=== PATIENT | male | born 1980 | race Caucasian/White ===

== ENCOUNTER 2020-05-14 18:05 | Emergency (ER) | payer MEDICAID, SELFPAY ==
--- NOTE | ~2020-05-14 | CT_ITS ---
EXAMINATION: CT ABDOMEN AND PELVIS WITHOUT CONTRAST CLINICAL INFORMATION: Left flank pain. COMPARISON: 12/10/2010 TECHNIQUE: Multidetector volumetric imaging was performed from the superior aspect of the liver through the pubic symphysis. Sagittal and coronal reformatted images were obtained on the technologist's workstation. This CT examination was performed using dose optimization techniques as appropriate, variously including the following: *Automated exposure control *Adjustment of mA and/or kV according to patient size (this includes techniques or standardized protocols for targeted exams where dose is matched to indication/reason for exam; i.e. extremities or head) *Use of iterative reconstruction technique DLP: 792 mGy-cm FINDINGS: LUNG BASES: The visualized lung bases are unremarkable. LIVER, GALLBLADDER, AND BILIARY TREE: The liver is normal in size, shape, and attenuation. No focal hepatic lesion or biliary ductal dilatation is present. The gallbladder is unremarkable with no evidence of radiopaque gallstones, gallbladder wall thickening, or obvious pericholecystic inflammatory changes. PANCREAS: Unremarkable. SPLEEN: Unremarkable. ADRENAL GLANDS: Unremarkable. KIDNEYS AND URETERS: The kidneys are normal in size, shape, and attenuation. No hydronephrosis, hydroureter, or calculi seen. No perinephric stranding. BLADDER: Unremarkable. GASTROINTESTINAL TRACT: The stomach is unremarkable. Normal caliber small bowel. There is no obstruction. No colonic wall thickening or inflammatory change. No free air or free fluid. Normal appendix. ABDOMINAL WALL: No significant hernia is appreciated. LYMPH NODES: Normal. VASCULAR: Unremarkable. PELVIC VISCERA: The prostate and seminal vesicles are unremarkable. OSSEOUS STRUCTURES: No acute or suspicious osseous abnormality. CT/CT abdomen pelvis wo con IMPRESSION: No acute findings in the abdomen or pelvis. No hydronephrosis or nephrolithiasis. No inflammatory changes.
[2020-05-14 20:00] VITALS: BP 138/82; PULSE 82; RESP 16; TEMP 37.1; O2SAT 98; BMI 31.4
[2020-05-14 22:38] LABS: Glucose Urine UA NEG (NEG); Leukocyte Esterase Urine NEG (NEG); Nitrite Urine NEG (NEG); Specific Gravity - Urine 1.025 (1.005-1.025); Urine Blood 1+ (NEG); Urine Ketones NEG (NEG); Urine Protein NEG (NEG-TRACE)
[2020-05-14 22:39] LABS: Appearance Urine CLEAR; Color Urine YELLOW
[2020-05-14 22:44] LABS: Bacteria Urine 1+ /LPF; Mucus Urine 2+ /LPF; Squamous Epithelial Cell Urine 1+ /LPF
[2020-05-14] MEDS: Acetaminophen 325 MG TABLET 975 MG PO (22:44)
[2020-05-14] MEDS: Ketorolac Tromethamine 15 MG/ML VIAL IM (22:44)
[2020-05-14] MEDS: Lidocaine 4 % Patch ADH..PATCH 1 PATCH TRANSDERMA (22:45)
--- NOTE | 2020-05-15 00:34 | ED_ITS ---
HPI - Back Pain/Injury General Chief Complaint: Back Pain/Injury Stated Complaint: Flank Pain Time Seen by Provider: 05/14/20 22:12 Source: patient Mode of arrival: ambulatory History of Present Illness HPI Narrative: This is a 39-year-old male without significant past medical history of presents with 5 days of bilateral lower back pain without associated fevers, chills, nausea, vomiting, urinary pain/burning/frequency, or reported trauma to the back. He states that the pain remains localized left greater than right without radiation into either lower extremity. In addition, he denies any associated fecal or urinary problems. Related Data Allergies Allergy/AdvReac Type Severity Reaction Status Date / Time No Known Allergies Allergy Unverified 12/06/19 18:10 Review of Systems Review of Systems: Pertinent positives and negatives as stated in the HPI and 10 point review systems is otherwise negative. [facility] Past Medical History Source: nursing notes reviewed Social History Social History Advance Directives: No Advance Directives Information Provided: Yes Physical Exam Vital Signs: Vital Signs: Last Vital Signs Temp 98.7 F 05/14/20 20:00 Pulse 82 05/14/20 20:00 Resp 16 05/14/20 20:00 BP 138/82 05/14/20 20:00 Pulse Ox 98 05/14/20 20:00 Body Mass Index 31.4 VITAL SIGNS: Reviewed. GENERAL: Well developed, well nourished, in no acute distress. LUNGS: Normal breath sounds. No adventitious sounds or accessory muscle use. SpO2<98> CARDIOVASCULAR: Regular rate and rhythm without noted murmurs, no JVD or lower extremity edema. ABDOMEN: Soft, non-tender, non-distended with bowel sounds. BACK: No CVA tenderness, no midline vertebral tenderness, neurovascularly intact distal in bilateral lower extremities, straight leg test is negative, and no paraspinal tenderness noted on palpation. SKIN: Inspection of the skin reveals no rashes NEUROLOGIC: Alert and oriented x 4. Course Course Course Narrative: This is a 39-year-old male with history and clinical presentation consistent with atraumatic, chronic back pain without concerning neurologic symptoms and doubt pyelonephritis or kidney stones given history and physical findings. Review of all investigations is negative for any acute findings to suggest UTI, pyelonephritis, ureterolithiasis, and on re-evaluation after patient received combination analgesics he reports some mild improvement of his pain symptoms. He was instructed to follow up with his primary care provider for further outpatient workup and management for his atraumatic back pain. MDM - Back Pain/Injury Lab Data Labs: Lab Results 05/14/20 Range/Units 22:32 Urine Color YELLOW Urine Appearance CLEAR Urine pH 7.0 (5.0-8.0) Ur Specific [place] 1.025 (1.005-1.025) Urine Protein NEG (NEG-TRACE) MG/DL Urine Glucose (UA) NEG (NEG) MG/DL Urine Ketones NEG (NEG) MG/DL Urine Blood 1+ H (NEG) Urine Nitrite NEG (NEG) Ur Leukocyte Esterase NEG (NEG) Urine RBC 5-9 H (0) /HPF Urine WBC 1-4 (0-4) /HPF Ur Squamous Epith Cells 1+ /LPF Urine Bacteria 1+ /LPF Urine Mucus 2+ /LPF Discharge Plan Discharge Clinical Impression: Back pain Qualifiers: Back pain location: low back pain Chronicity: chronic Back pain laterality: bilateral Sciatica presence: without sciatica Qualified Code(s): M54.5 - Low back pain Patient Disposition: Home, Self-Care Instructions: Back Pain (ED), Lower Back Exercises (ED) Additional Instructions: 1. Tylenol 1000 mg, por v?a oral, cada 6 horas seg?n sea necesario para controlar el dolor. No exceda los 4000 mg en 24 horas. 2. Ibuprofeno 400 mg, por v?a oral con leche o alimentos, cada 6 horas seg?n sea necesario para controlar el dolor. 3. Recomiende el uso de parches de lidoca?na, estos est?n disponibles en todos los [facility], apl?quelos en el ?antonia de m?xima sensibilidad collin se indica en el empaque exterior. 4. Jhon un seguimiento con ring proveedor de atenci?n primaria en los pr?ximos 2-3 d?as. No dude en volver al servicio de urgencias si experimenta un empeoramiento timothy de yuliya s?ntomas. Referrals: Juana,Sarah, MD [Primary Care Provider] - 2 days (Re-evaluation for lower back pain, CT scan negative for evidence kidney stones.) Print Language: Belarusian
== END 2020-05-15 00:41 | disposition home or self-care (01) ==
PROVIDERS: Emergency Provider Student in an Organized Health Care Education/Training Program; PCP Internal Medicine
DX: M54.5 Low back pain (principal)
CPT/HCPCS: 74176; 81001; 96372; 99282; 99283; 99284; J1885

== ENCOUNTER 2020-07-17 18:24 | Emergency (ER) | payer MEDICAID, SELFPAY ==
[2020-07-17 19:15] VITALS: BP 118/83; PULSE 77; RESP 18; TEMP 36.2; O2SAT 98; BMI 31.6
[2020-07-17 19:37] LABS: MANUAL DIFF FLAG NO
[2020-07-17 19:38] LABS: Basophils Percent Auto 0.5 % (0-2); Eosinophils Absolute Auto 0.1 X10*3/uL (0.0-0.4); Eosinophils Percent Auto 1.5 % (0-4); Hematocrit 45.1 % (42-52); Hemoglobin 14.6 g/dl (14.0-18.0); Imm Gran Abs Auto 0.01 X10*3/uL (0.00-0.03); Imm Gran Pct Auto 0.1 % (0.0-0.4); Lymphocytes Absolute Auto 2.5 X10*3/uL (1.2-4.9); Lymphocytes Percent Auto 32.6 % (20-40); Mean Corpuscular HGB Conc 32.4 g/dl (31.0-36.0); Mean Corpuscular Hemoglobin 27.1 pg (27.0-33.0); Mean Corpuscular Volume 83.8 fL (80-98); Mean Platelet Volume 9.2 fL (9.4-12.4); Monocytes Absolute Auto 0.7 X10*3/uL (0.1-1.2); Monocytes Percent Auto 8.5 % (2-11); Neutrophils Absolute Auto 4.4 X10*3/uL (2.0-8.3); Neutrophils Percent Auto 56.8 % (45-73); Platelet Count 240 X10*3/uL (160-400); Red Blood Count 5.38 X10*6/uL (4.60-5.80); Red Cell Distribution Width 13.5 % (11.0-16.0); White Blood Count 7.8 X10*3/uL (4.8-10.8)
[2020-07-17 19:55] LABS: Lipase 30 U/L (8-78)
[2020-07-17 19:56] LABS: Alanine Aminotransferase 15 U/L (0-40); Albumin Level 4.6 g/dL (3.5-5.0); Alkaline Phosphatase 51 U/L (39-117); Anion Gap 14 (12-20); Aspartate Amino Transferase 15 U/L (5-37); Blood Urea Nitrogen 24 mg/dL (9-16); Calcium 9.3 mg/dL (8.4-10.2); Carbon Dioxide 26 mmol/L (22-29); Chloride 101 mmol/L (96-108); Creatinine Clr Calc Pharmacy 134.4; Estimated Glomerular Filt Rate > 60; Glucose Random 102 mg/dL (60-115); Potassium 3.9 mmol/L (3.3-5.1); Sodium 137 mmol/L (135-145); Total Protein 7.5 g/dL (6.5-8.0)
--- NOTE | 2020-07-17 20:46 | ED.ABDPAIN ---
HPI - Abdominal Pain General Chief Complaint: Abdominal Pain Stated Complaint: upper abd pain Time Seen by Provider: 07/17/20 20:45 Source: patient Mode of arrival: ambulatory Limitations: no limitations History of Present Illness HPI narrative: Patient with significant past medical history complaining of pain in epigastric area for last 3 days no nausea no vomiting no diarrhea normal bowel movements pain gets worse after eating food no blood in stool no history of similar pain in the past no alcohol use no history of pancreatitis Related Data Previous Rx's Medication Instructions Recorded omeprazole 40 mg PO DAILY #30 cap 07/17/20 sucralfate 1 g PO TID #90 tab 07/17/20 Allergies Allergy/AdvReac Type Severity Reaction Status Date / Time No Known Allergies Allergy Verified 07/17/20 19:19 Review of Systems Review of Systems Yes all other systems are reviewed and are negative Physical Exam Vital Signs: Vital Signs: Last Vital Signs Temp 97.1 F 07/17/20 19:15 Pulse 77 07/17/20 19:15 Resp 18 07/17/20 19:15 BP 118/83 07/17/20 19:15 Pulse Ox 98 07/17/20 19:15 Body Mass Index 31.6 Appearance: Alert. Oriented X3. No acute distress. Eyes: PERRLA, No Nystagmus ENT: Pharynx normal. Oral Mucosa moist Neck: Normal inspection. Neck supple. CVS: Normal heart rate and rhythm. Pulses normal. Respiratory: No respiratory distress. Equal air entry bilateral, no wheezing/rales/rhonchi Abdomen: Soft , tenderness in epigastric area no rebound tenderness or guarding Bowel sounds are present, no mass palpable, no CVA tenderness Skin: Skin warm and dry. Normal skin color. Normal skin turgor. Extremities: No lower extremity edema. No calf tenderness Neuro: Oriented X 3. No motor deficit. No sensory deficit. MDM - Abdominal Pain MDM Narrative Medical decision making narrative: Patient has epigastric pain with normal labs clinically has gastritis discharge patient home on Prilosec and sucralfate Lab Data Attestation: I reviewed the patient's lab results. Result diagrams: 07/17/20 19:30 07/17/20 19:30 Labs: Lab Results 07/17/20 07/17/20 07/17/20 Range/Units 19:30 19:30 19:30 WBC 7.8 (4.8-10.8) X10*3/uL RBC 5.38 (4.60-5.80) X10*6/uL Hgb 14.6 (14.0-18.0) g/dl Hct 45.1 (42-52) % MCV 83.8 (80-98) fL MCH 27.1 (27.0-33.0) pg MCHC 32.4 (31.0-36.0) g/dl RDW 13.5 (11.0-16.0) % Plt Count 240 (160-400) X10*3/uL MPV 9.2 L (9.4-12.4) fL Immature Gran % (Auto) 0.1 (0.0-0.4) % Neut % (Auto) 56.8 (45-73) % Lymph % (Auto) 32.6 (20-40) % Edwards % (Auto) 8.5 (2-11) % Eos % (Auto) 1.5 (0-4) % Baso % (Auto) 0.5 (0-2) % Lymph # (Auto) 2.5 (1.2-4.9) X10*3/uL Edwards # (Auto) 0.7 (0.1-1.2) X10*3/uL Eos # (Auto) 0.1 (0.0-0.4) X10*3/uL Baso # (Auto) 0.0 (0.0-0.2) X10*3/uL Abs Immat Gran (auto) 0.01 (0.00-0.03) X10*3/uL Absolute Neuts (auto) 4.4 (2.0-8.3) X10*3/uL Absolute Nucleated RBC 0.000 (0.0-0.012) X10*3/uL Nucleated RBC % (auto) 0.0 (0.0-0.2) /100WBC Hold Blue Top SEE NOTE Sodium (135-145) mmol/L Potassium (3.3-5.1) mmol/L Chloride (96-108) mmol/L Carbon Dioxide (22-29) mmol/L Anion Gap (12-20) BUN (9-16) mg/dL Creatinine (0.5-1.4) mg/dL Estim Creat Clear Calc Estimated GFR Random Glucose (60-115) mg/dL Calcium (8.4-10.2) mg/dL Total Bilirubin (0.0-1.0) mg/dL AST (5-37) U/L ALT (0-40) U/L Alkaline Phosphatase (39-117) U/L Total Protein (6.5-8.0) g/dL Albumin (3.5-5.0) g/dL Lipase 30 (8-78) U/L 07/17/20 Range/Units 19:30 WBC (4.8-10.8) X10*3/uL RBC (4.60-5.80) X10*6/uL Hgb (14.0-18.0) g/dl Hct (42-52) % MCV (80-98) fL MCH (27.0-33.0) pg MCHC (31.0-36.0) g/dl RDW (11.0-16.0) % Plt Count (160-400) X10*3/uL MPV (9.4-12.4) fL Immature Gran % (Auto) (0.0-0.4) % Neut % (Auto) (45-73) % Lymph % (Auto) (20-40) % Edwards % (Auto) (2-11) % Eos % (Auto) (0-4) % Baso % (Auto) (0-2) % Lymph # (Auto) (1.2-4.9) X10*3/uL Edwards # (Auto) (0.1-1.2) X10*3/uL Eos # (Auto) (0.0-0.4) X10*3/uL Baso # (Auto) (0.0-0.2) X10*3/uL Abs Immat Gran (auto) (0.00-0.03) X10*3/uL Absolute Neuts (auto) (2.0-8.3) X10*3/uL Absolute Nucleated RBC (0.0-0.012) X10*3/uL Nucleated RBC % (auto) (0.0-0.2) /100WBC Hold Blue Top Sodium 137 (135-145) mmol/L Potassium 3.9 (3.3-5.1) mmol/L Chloride 101 (96-108) mmol/L Carbon Dioxide 26 (22-29) mmol/L Anion Gap 14 (12-20) BUN 24 H (9-16) mg/dL Creatinine 1.00 (0.5-1.4) mg/dL Estim Creat Clear Calc 134.4 Estimated GFR > 60 Random Glucose 102 (60-115) mg/dL Calcium 9.3 (8.4-10.2) mg/dL Total Bilirubin 1.0 (0.0-1.0) mg/dL AST 15 (5-37) U/L ALT 15 (0-40) U/L Alkaline Phosphatase 51 (39-117) U/L Total Protein 7.5 (6.5-8.0) g/dL Albumin 4.6 (3.5-5.0) g/dL Lipase (8-78) U/L Discharge Plan Discharge Clinical Impression: Gastritis Patient Disposition: Home, Self-Care Instructions: Gastritis (ED) Additional Instructions: Avoid spicy/fried food Prescriptions: New omeprazole 40 mg capsule,delayed release(DR/EC) 40 mg PO DAILY Qty: 30 RF: 0 sucralfate 1 gram tablet 1 g PO TID Qty: 90 RF: 0 Interventions: ED Discharge Assessment Last Done: 07/17/20 22:25 Discharge Date/Time: 07/17/20 22:25 Print Language: [place] Citizen [facility] Social History Social History Advance Directives: No Advance Directives Information Provided: Yes
[2020-07-17] MEDS: Famotidine/PF 20 MG/2 ML VIAL IVPUSH (21:44)
[2020-07-17] MEDS: ondansetron HCL 4 MG/2 ML VIAL IVPUSH (21:44)
[2020-07-17] MEDS: 0.9 % Sodium Chloride 1,000 ML 999 ML IVCONT (21:44)
--- NOTE | 2020-07-17 21:45 | PC.NURSE ---
patient medicated per order
== END 2020-07-17 22:25 | disposition home or self-care (01) ==
PROVIDERS: Emergency Provider Internal Medicine; PCP Internal Medicine
DX: K29.70 Gastritis, unspecified, without bleeding (principal); R10.10 Upper abdominal pain, unspecified
CPT/HCPCS: 36415; 80053; 83690; 85025; 96361; 96374; 96375; 99284; J2405

== ENCOUNTER 2021-03-28 07:20 | Emergency (ER) | payer MEDICAID, SELFPAY ==
--- NOTE | ~2021-03-28 | XR_ITS ---
EXAMINATION: XR CHEST CLINICAL INFORMATION: Cough with chest pain. COMPARISON: Most recent chest radiograph dated 07/22/2018. TECHNIQUE: 2 views of the chest were obtained. FINDINGS: The lungs are clear. The cardiomediastinal silhouette is normal in size. There is no pleural effusion or pneumothorax. No acute osseous abnormality. XR/XR chest 2V IMPRESSION: No acute cardiopulmonary findings.
--- NOTE | ~2021-03-28 | XR_ITS ---
EXAMINATION: XR LUMBOSACRAL SPINE CLINICAL INFORMATION: Back pain for one month. COMPARISON: None TECHNIQUE: Three views of the lumbosacral spine. FINDINGS: The vertebral bodies and posterior elements are normal. The disc spaces are preserved and the vertebral alignment is normal. The paraspinal soft tissues are normal. XR/XR lumbar spine 2-3V IMPRESSION: Unremarkable examination.
[2021-03-28 07:50] VITALS: BP 118/71; PULSE 100; RESP 18; TEMP 36.4; O2SAT 96; BMI 32.1
[2021-03-28 11:17] LABS: COVID-19 Test Positive (Negative)
--- NOTE | 2021-03-28 11:47 | ED_ITS ---
HPI - URI/Sore Throat General Chief Complaint: General Medical Stated Complaint: Fever/chest pain Time Seen by Provider: 03/28/21 10:42 Source: patient Mode of arrival: ambulatory Limitations: language barrier (Chinese-speaking) History of Present Illness HPI Narrative: 40-year-old male who reports he is vaccinated to the COVID vaccine with 2 Moderna shots presenting to the ED with COVID like symptoms for the past 2 days worse today reports intermittent headaches, subjective fevers, sore throat, sweats, productive cough with thick yellow color sputum, chest tightness, lower back pain and body aches. Denies any other symptoms complaints or concerns at this time. MD elicited complaint: fever, cough, rhinorrhea and nasal congestion Onset (ago): day(s) (2) Consistency: constant and progressively worsening Severity: moderate Description of mucous: yellow Able to tolerate fluids by mouth: Yes Exacerbating factors: nothing Relieving factors: nothing Associated symptoms: fever, chills, myalgias, headache, rhinorrhea, nasal congestion, sore throat, cough (With chest tightness) and nausea Treatments prior to arrival: none Related Data Previous Rx's Medication Instructions Recorded omeprazole 40 mg capsule,delayed 40 mg PO DAILY #30 cap 07/17/20 release sucralfate 1 gram tablet 1 g PO TID #90 tab 07/17/20 albuterol sulfate 90 mcg/actuation 1 inh INHALATION QID PRN #8.5 g 03/28/21 aerosol inhaler azithromycin 250 mg tablet See Rx Instructions .ROUTE 03/28/21 .COMPLEX #6 tab codeine 10 mg-guaifenesin 100 mg/5 5 ml PO Q6H PRN #120 ml 03/28/21 mL oral liquid (Guaifenesin AC) cyclobenzaprine 10 mg tablet 10 mg PO Q8H PRN #14 tab 03/28/21 Allergies Allergy/AdvReac Type Severity Reaction Status Date / Time No Known Allergies Allergy Verified 07/17/20 19:19 Review of Systems Review of Systems: Constitutional : Positive for subjective fever/chills/fatigue/malaise, positive night sweats, No Weight loss ENT/Mouth : Positive sore throat/rhinorrhea/nasal congestion, No Hearing loss, No Ear Pain, No Sinus Pain, No Hoarseness, No Swallowing Difficulty Eyes: No Eye Pain, No Swelling, No Redness, No Foreign Body, No Discharge, No Vision Changes Cardiovascular : No Chest Pain, No SOB, No Dyspnea on Exertion, No Orthopnea, No Edema, No Palpitations Respiratory : Positive Cough, positive Sputum, No Wheezing, No Smoke Exposure, No Dyspnea Gastrointestinal : No Nausea, No Vomiting, No Diarrhea, No Constipation, No abdominal Pain, No Hematochezia, No Melena Genitourinary : no irregular bleeding, No Dysuria, No Urinary Frequency, No Hematuria, No Urinary Incontinence, No Urgency, No Flank Pain, No Urinary Flow Changes, No Hesitancy Musculoskeletal : No joint pain, positive Myalgias, No Joint Swelling Skin : No Skin Lesions, No rash Neuro : No Weakness, No Numbness, No Paresthesias, No Loss of Consciousness, No Dizziness, No Headache Psych : No Anxiety/Panic, No Depression, No SI/HI/AH/VH, No Social Issues, Heme/Lymph: No Bruising, No Bleeding,No Lymphadenopathy Endocrine : No Polyuria, No Polydipsia, No Temperature Intolerance Yes all other systems are reviewed and are negative [facility] Past Medical History Attestation statement: The following information was validated with the patient. Social History Social History Advance Directives: No Advance Directives Information Provided: No Physical Exam Vital Signs: Vital Signs: Last Vital Signs Temp 97.6 F 03/28/21 07:50 Pulse 100 03/28/21 07:50 Resp 18 03/28/21 07:50 BP 118/71 03/28/21 07:50 Pulse Ox 96 03/28/21 07:50 BMI result Body Mass Index 32.1 vital signs have been reviewed as normal and appeared to be correct. Blood pressure normal. Heart rate normal. Respiration rate normal. Temperature normal. Oxygen saturation normal. Appearance: Alert. Oriented X3. No acute distress. Head: Normal external exam. Normocephalic. Atraumatic. Eyes: PERRLA. EOMI. Conjunctiva and sclera normal. Eyelids normal. ENT: EAC normal. TM's Normal. Pharynx normal. Uvula midline. Moist mucous membranes. No trismus noted. No drooling noted. No muffled voice noted. Neck: Normal inspection. Neck supple. FROM. No adenopathy. Thyroid Normal. No meningeal signs. No neck mass noted. CVS: Normal heart rate and rhythm. Heart sound normal. Pulses normal throughout. No murmurs/rales/gallops. Respiratory: No respiratory distress. Painless inspiration. Breath sounds normal. No wheezes/rales/rhonchi noted. Chest nontender. No accessory muscle usage noted or decreased air movement noted. Abdomen: Soft and nontender. Bowel sounds normal in all 4 quadrants. No distention noted. No organomegaly noted. No visible injury noted. Back: No CVA tenderness. Full range of motion noted. No rashes/lesion/induration/fluctuance or signs of infection noted. Neuro intact bilaterally and distally on all 4 extremities. Reflexes intact bilateral and DISI on all 4 extremities. Skin: Skin warm and dry. Normal skin color. Normal skin turgor. No rashes/lesions/lacerations noted. Extremities: No lower extremity edema. Extremities exhibit normal range of motion. Extremities nontender. Neuro: Oriented X 3. No motor deficit. No sensory deficit. Reflexes normal. Normal steady gait. No focal neuro deficits noted. Vascular: + radial pulses/+ 2 distal pedal pulses/+2 dorsalis pedis b/l. Normal cap refill. No cyanosis noted to upper extremity nails and lower extremity toes nails. Course Course Course Narrative: Pt c likely muscular pain, but could be herniated disc. Neuro exam shows no deficits. Not c/w AAA/epidural abscess/dissection.No high risk Hx (Incont, fever, immunosupp, recent surgery/LP, coag, signif trauma, wt loss, puls mass, hx/o Ca, TB, or IVDU) to warrant MRI/CT today. Not c/w Pyelo/UTI/kidney stone/spinal fx. Not cauda equina syndrome. X-ray imaging negative. Patient most likely just is COVID body aches. I explained him that he is positive for COVID and that he needs to follow up with the CDC guidelines for isolation/quarantine guidelines and to return if any new or worsening symptoms will DC home with symptomatic treatment to follow-up with primary care provider. Patient understands agrees with this plan. MDM - URI/Sore Throat Medical Records Attestation: I reviewed the patient's medical records. Lab Data Attestation: I reviewed the patient's lab results. Labs: Lab Results 03/28/21 Range/Units 10:52 COVID-19 (ISABEL) Positive A (Negative) COVID-19 Clin Com See Note Imaging Data Lumbar spine x-ray: Attestation: I personally reviewed and interpreted this imaging study as follows: Radiologist's impression: FINDINGS: The vertebral bodies and posterior elements are normal. The disc spaces are preserved and the vertebral alignment is normal. The paraspinal soft tissues are normal. XR/XR lumbar spine 2-3V IMPRESSION: Unremarkable examination. Chest x-ray: Attestation: I personally reviewed and interpreted this imaging study as follows: Radiologist's impression: FINDINGS: The lungs are clear. The cardiomediastinal silhouette is normal in size. There is no pleural effusion or pneumothorax. No acute osseous abnormality. XR/XR chest 2V IMPRESSION: No acute cardiopulmonary findings. Discharge Plan Discharge Clinical Impression: COVID-19 Patient Disposition: Home, Self-Care Instructions: COVID-19 (Coronavirus Disease 2019) (ED) Prescriptions: New cyclobenzaprine 10 mg tablet 10 mg PO Q8H PRN (Reason: Muscle spasm) Qty: 14 RF: 0 azithromycin 250 mg tablet See Rx Instructions .ROUTE .COMPLEX Qty: 6 RF: 0 codeine-guaifenesin [Guaifenesin AC] 10-100 mg/5 mL liquid 5 ml PO Q6H PRN (Reason: cold symptoms) Qty: 120 RF: 0 albuterol sulfate 90 mcg/actuation HFA aerosol inhaler 1 inh inhalation QID PRN (Reason: shortness of breath or wheezing) Qty: 8.5 RF: 0 No Action omeprazole 40 mg capsule,delayed release(DR/EC) 40 mg PO DAILY Qty: 30 RF: 0 sucralfate 1 gram tablet 1 g PO TID Qty: 90 RF: 0 Referrals: Merissa Arias MD [Primary Care Provider] - 2 days Stand Alone Forms: Work/School Release Print Language: Chinese
== END 2021-03-28 12:25 | disposition home or self-care (01) ==
PROVIDERS: Physician Assistant Medical; Emergency Provider Internal Medicine; PCP Internal Medicine
DX: U07.1 COVID-19 (principal); M54.50 Low back pain, unspecified
CPT/HCPCS: 71046; 72100; 87635; 99283

== ENCOUNTER 2021-09-07 07:48 | Emergency (ER) | payer MEDICAID, SELFPAY ==
--- NOTE | ~2021-09-07 | CT_ITS ---
EXAMINATION: CT HEAD WITHOUT CONTRAST CLINICAL INFORMATION: Headache. COMPARISON: Head CT scan dated 03/29/2019. TECHNIQUE: Contiguous axial imaging was performed from the skull base to vertex without intravenous administration of contrast. Coronal and sagittal reformatted images were obtained. This CT examination was performed using dose optimization techniques as appropriate, variously including the following: *Automated exposure control *Adjustment of mA and/or kV according to patient size (this includes techniques or standardized protocols for targeted exams where dose is matched to indication/reason for exam; i.e. extremities or head) *Use of iterative reconstruction technique DLP: 734 mGy-cm FINDINGS: The cortical sulci are normal. The lateral ventricles are symmetrical. The third and fourth ventricles are in their normal midline position. The basilar and prepontine cisterns are unremarkable. There is no acute intra or extracerebral abnormality. There is no mass effect or midline shift. Sections through the bony calvarium are and show focal cortical thickening along the external table of the right parietal bone without significant change. The bony orbits are unremarkable. The paranasal sinuses show moderate to severe mucosal thickening in the right maxillary sinus extending to the right nasal canal. The remainder of the visualized paranasal sinuses are clear. The bony orbits and orbital contents are unremarkable. CT/CT head/brain wo con IMPRESSION: 1. No acute intracranial abnormality. 2. 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 3. Moderate to severe right maxillary and right nasal canal inflammatory changes. Resolution of previously seen inflammatory changes on the left.
[2021-09-07 07:49] VITALS: BP 130/81; PULSE 89; RESP 18; TEMP 36.9; O2SAT 98; BMI 32.1
--- NOTE | 2021-09-07 08:02 | ED_ITS ---
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 Mode of arrival: ambulatory Limitations: no limitations History of Present Illness MD elicited complaint: headache Onset (ago): day(s) (4) Onset description: gradually and while at rest Location: right and temporal Severity: moderate Quality & Timing: throbbing, dull, intermittent and progressively worsening Exacerbating factors: other ( gets worse throughout the day ) Relieving factors: nothing Context: occurred at rest Associated symptoms: other (notes mucous and sinus pain) Treatments prior to arrival: none Related Data Previous Rx's Medication Instructions Recorded omeprazole 40 mg capsule,delayed 40 mg PO DAILY #30 caps 07/17/20 release sucralfate 1 gram tablet 1 g PO TID #90 tabs 07/17/20 albuterol sulfate 90 mcg/actuation 1 inh inhalation QID PRN shortness 03/28/21 aerosol inhaler of breath or wheezing #8.5 grams azithromycin 250 mg tablet See Rx Instructions PO .COMPLEX #6 03/28/21 tabs codeine 10 mg-guaifenesin 100 mg/5 5 ml PO Q6H PRN cold symptoms #120 03/28/21 mL oral liquid (Guaifenesin AC) mL cyclobenzaprine 10 mg tablet 10 mg PO Q8H PRN Muscle spasm #14 03/28/21 tabs amoxicillin 875 mg-potassium 1 tab PO BID #14 tabs 09/07/21 clavulanate 125 mg tablet prednisone 20 mg tablet 40 mg PO DAILY 5 days #10 tabs 09/07/21 Allergies Allergy/AdvReac Type Severity Reaction Status Date / Time No Known Allergies Allergy Verified 07/17/20 19:19 Review of Systems Review of Systems: Constitutional : No Fever, No Chills, No Fatigue ENT/Mouth : No sore throat, No Rhinorrhea Eyes: No Eye Pain, No Swelling, No Redness, pos facial pain, pos sinus pain Cardiovascular : No Chest Pain, No SOB, No Dyspnea on Exertion Respiratory : No Cough, No Sputum Gastrointestinal : No Nausea, No Vomiting, No Diarrhea, No abdominal Pain Genitourinary : No Dysuria, No Urinary Frequency, No Hematuria, Musculoskeletal : No joint pain, No Myalgias, No Joint Swelling Skin : No Skin Lesions, No rash Neuro : No Weakness, No Numbness, No Dizziness, positive Headache Psych : No Anxiety/Panic, No Depression Heme/Lymph: No Bruising, No Bleeding,No Lymphadenopathy Endocrine : No Polyuria, No Polydipsia All other systems reviewed and are negative [facility] Past Medical History Attestation statement: The following information was validated with the patient. Medical History No pertinent past medical history Social History Social History (Updated 09/07/21 @ 08:03 by Nataliia Condon DO) Alcohol intake: current Alcohol intake frequency: holidays/special occasions only Patient Tobacco Use Status: Never used Tobacco Use of substances other than those prescribed or required for medical reasons: No Advance Directives: No Advance Directives Information Provided: No Physical Exam Vital Signs: Vital Signs: Last Vital Signs Temp 98.4 F 09/07/21 08:09 Pulse 81 09/07/21 08:09 Resp 14 09/07/21 08:09 BP 134/76 09/07/21 08:09 Pulse Ox 97 09/07/21 08:09 O2 Del Method 09/07/21 08:09 BMI result Body Mass Index 32.1 Appearance: Alert. Oriented X3. No acute distress. Eyes: Pupils equal, round and reactive to light. ENT: Pharynx normal. R maxillary ttp , no trismus no swelling, normal R TMs Neck: Normal inspection. Neck supple. no meningeal signs CVS: Normal heart rate and rhythm. Pulses normal. Respiratory: No respiratory distress. Breath sounds normal. Abdomen: Soft and nontender. Skin: Skin warm and dry. Normal skin color. Normal skin turgor. Extremities: No lower extremity edema. No calf ttp Neuro: Oriented X 3. No motor deficit. No sensory deficit. Course Course Course Narrative: + R maxillary sinusitis will start on augmentin and prednisone MDM - Headache MDM Narrative Medical decision making narrative: 40 yo male otherwise healthy no DOAC here with c/o R sided gradual onset headache x 4 days with mild nasal congestion and R maxillary sinus pain - no prior headaches in the past. Could be sinusitis. He has normal neuro exam, no meningeal signs. He is not toxic. Given gradual onset doubt SAH. No fevers to suggest meningitis and supple neck with full ROM - CT head for mass ordered, PO pain control. Dispo per results and findings. Discharge Plan Discharge Clinical Impression: Acute maxillary sinusitis Qualifiers: Recurrence: non-recurrent Qualified Code(s): J01.00 - Acute maxillary sinusitis, unspecified Patient Disposition: Home, Self-Care Instructions: Sinusitis (ED) Additional Instructions: return to ED for any worsening symptoms or concerns Prescriptions: New prednisone 20 mg tablet 40 mg PO DAILY 5 Days Qty: 10 0RF amoxicillin-pot clavulanate 875-125 mg tablet 1 tab PO BID Qty: 14 0RF No Action omeprazole 40 mg capsule,delayed release(DR/EC) 40 mg PO DAILY Qty: 30 0RF sucralfate 1 gram tablet 1 g PO TID Qty: 90 0RF cyclobenzaprine 10 mg tablet 10 mg PO Q8H PRN (Reason: Muscle spasm) Qty: 14 0RF azithromycin 250 mg tablet See Rx Instructions .ROUTE .COMPLEX Qty: 6 0RF Rx Instructions: take 500 mg today (day 1), then 250 mg for 4 days (days 2-5) codeine-guaifenesin [Guaifenesin AC] 10-100 mg/5 mL liquid 5 ml PO Q6H PRN (Reason: cold symptoms) Qty: 120 0RF albuterol sulfate 90 mcg/actuation HFA aerosol inhaler 1 inh inhalation QID PRN (Reason: shortness of breath or wheezing) Qty: 8.5 0RF Referrals: Merissa Arias MD [Primary Care Provider] - 3 days (if not better) Stand Alone Forms: Work/School Release Print Language: Mauritanian
[2021-09-07 08:09] VITALS: BP 134/76; PULSE 81; RESP 14; TEMP 36.9; O2SAT 97
[2021-09-07] MEDS: Ibuprofen 600 MG TABLET PO (08:17)
[2021-09-07] MEDS: Acetaminophen 325 MG TABLET 650 MG PO (08:17)
== END 2021-09-07 09:42 | disposition home or self-care (01) ==
PROVIDERS: Emergency Provider Emergency Medicine; PCP Internal Medicine
DX: J01.00 Acute maxillary sinusitis, unspecified (principal); R51.9 Headache, unspecified; Z79.899 Other long term (current) drug therapy
CPT/HCPCS: 70450; 99284

== ENCOUNTER 2021-10-29 08:10 | Emergency (ER) | payer MEDICAID, SELFPAY ==
--- NOTE | ~2021-10-29 | XR_ITS ---
EXAMINATION: XR CHEST CLINICAL INFORMATION: Cough COMPARISON: Chest radiograph from 03/28/2021 TECHNIQUE: 2 views of the chest were obtained. FINDINGS: No focal consolidation. No pneumothorax. Trachea is midline. Cardiomediastinal silhouette is not enlarged. No large pleural effusion. Osseous structures are intact. Soft tissues are unremarkable. XR/XR chest 2V IMPRESSION: No acute cardiopulmonary process.
[2021-10-29 08:35] VITALS: BP 108/63; PULSE 84; RESP 18; TEMP 36.5; O2SAT 98; BMI 32.1
--- NOTE | 2021-10-29 10:41 | ED_ITS ---
HPI - Headache General Chief Complaint: Headache Stated Complaint: headache dizzy x3days Time Seen by Provider: 10/29/21 09:05 Source: patient and educational interpreter Limitations: no limitations History of Present Illness HPI Narrative: 40 yo male with hx of chronic headaches he has been seen here with head CT in past showing sinusitis and his PCP has put him on ibuprofen but is not on other medications and has not seen a neurologist. He comes in with another headache x 3 days, feeling weak, flui-nicolas. No sick contacts, vaccinated for COVID. MD elicited complaint: headache Pertinent past history: migraines Onset (ago): month(s) Onset description: gradually Location: diffuse Severity: moderate Quality & Timing: aching Exacerbating factors: other (worse at work) Relieving factors: NSAIDs Context: occurred at rest Associated symptoms: other (currently past three days c/o feeling dizzy, coughing, not well) Treatments prior to arrival: ibuprofen Related Data Previous Rx's Medication Instructions Recorded omeprazole 40 mg capsule,delayed 40 mg PO DAILY #30 caps 07/17/20 release sucralfate 1 gram tablet 1 g PO TID #90 tabs 07/17/20 albuterol sulfate 90 mcg/actuation 1 inh inhalation QID PRN shortness 03/28/21 aerosol inhaler of breath or wheezing #8.5 grams azithromycin 250 mg tablet See Rx Instructions PO .COMPLEX #6 03/28/21 tabs codeine 10 mg-guaifenesin 100 mg/5 5 ml PO Q6H PRN cold symptoms #120 03/28/21 mL oral liquid (Guaifenesin AC) mL cyclobenzaprine 10 mg tablet 10 mg PO Q8H PRN Muscle spasm #14 03/28/21 tabs amoxicillin 875 mg-potassium 1 tab PO BID #14 tabs 09/07/21 clavulanate 125 mg tablet prednisone 20 mg tablet 40 mg PO DAILY 5 days #10 tabs 09/07/21 cyclobenzaprine 10 mg tablet 10 mg PO TID PRN muscle spasm #14 10/29/21 tabs ondansetron 4 mg disintegrating 4 mg PO Q8H PRN nausea and 10/29/21 tablet vomiting #20 tabs sumatriptan succinate 50 mg tablet 50 mg PO Q2-4H PRN migraine 10/29/21 headache #10 tabs Allergies Allergy/AdvReac Type Severity Reaction Status Date / Time No Known Allergies Allergy Verified 07/17/20 19:19 Review of Systems Review of Systems: Constitutional : No Fever, No Chills, No Fatigue ENT/Mouth : No sore throat, No Rhinorrhea Eyes: No Eye Pain, No Swelling, No Redness Cardiovascular : No Chest Pain, No SOB, No Dyspnea on Exertion Respiratory : pos Cough, No Sputum Gastrointestinal : No Nausea, No Vomiting, No Diarrhea, No abdominal Pain Genitourinary : No Dysuria, No Urinary Frequency, No Hematuria, Musculoskeletal : No joint pain, No Myalgias, No Joint Swelling Skin : No Skin Lesions, No rash Neuro : No Weakness, No Numbness, pos Dizziness, positive Headache Psych : No Anxiety/Panic, No Depression Heme/Lymph: No Bruising, No Bleeding,No Lymphadenopathy Endocrine : No Polyuria, No Polydipsia All other systems reviewed and are negative [facility] Past Medical History Attestation statement: The following information was validated with the patient. Medical History Headache Sinusitis Social History Social History Alcohol intake: current Alcohol intake frequency: holidays/special occasions only Patient Tobacco Use Status: Never used Tobacco Advance Directives: No Advance Directives Information Provided: No Physical Exam Vital Signs: Vital Signs: Last Vital Signs Temp 97.7 F 10/29/21 08:35 Pulse 84 10/29/21 08:35 Resp 18 10/29/21 08:35 BP 108/63 10/29/21 08:35 Pulse Ox 98 10/29/21 08:35 O2 Del Method 10/29/21 08:35 BMI result Body Mass Index 32.1 Appearance: Alert. Oriented X3. No acute distress. Eyes: Pupils equal, round and reactive to light. ENT: Pharynx normal. Neck: Normal inspection. Neck supple. no meningeal signs CVS: Normal heart rate and rhythm. Pulses normal. Respiratory: No respiratory distress. Breath sounds normal. Abdomen: Soft and non-tender. Skin: Skin warm and dry. Normal skin color. Normal skin turgor. Extremities: No lower extremity edema. Neuro: Oriented X 3. No motor deficit. No sensory deficit. Course Course Course Narrative: VS stable, labs stable negative workup can follow up with his PCP MDM - Headache MDM Narrative Medical decision making narrative: 40 yo male with hx of headaches here with c/o headaches, coughing, overall not feeling well at this time will need basic labs, COVID swab, PO medications. 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 These headaches are daily doubt SAH. Lab Data Result diagrams: 10/29/21 11:13 10/29/21 11:13 Labs: Lab Results 10/29/21 10/29/21 10/29/21 Range/Units 10:41 11:13 11:13 WBC 6.9 (4.8-10.8) X10*3/uL RBC 5.49 (4.60-5.80) X10*6/uL Hgb 14.8 (14.0-18.0) g/dl Hct 45.3 (42.0-52.0) % MCV 82.5 (80.0-98.0) fL MCH 27.0 (27.0-33.0) pg MCHC 32.7 (31.0-36.0) g/dl RDW 13.6 (11.0-16.0) % Plt Count 227 (160-400) X10*3/uL MPV 9.3 L (9.4-12.4) fL Immature Gran % (Auto) 0.3 (0.0-0.4) % Neut % (Auto) 59.2 (45-73) % Lymph % (Auto) 28.6 (20-40) % [place] % (Auto) 10.0 (2-11) % Eos % (Auto) 1.2 (0-4) % Baso % (Auto) 0.7 (0-2) % Lymph # (Auto) 2.0 (1.2-4.9) X10*3/uL [place] # (Auto) 0.7 (0.1-1.2) X10*3/uL Eos # (Auto) 0.1 (0.0-0.4) X10*3/uL Baso # (Auto) 0.1 (0.0-0.2) X10*3/uL Abs Immat Gran (auto) 0.02 (0.00-0.03) X10*3/uL Absolute Neuts (auto) 4.1 (2.0-8.3) x10*3/uL Absolute Nucleated RBC 0.000 (0.0-0.012) X10*3/uL Nucleated RBC % (auto) 0.0 (0.0-0.2) /100WBC Sodium 139 (135-145) mmol/L Potassium 4.3 (3.3-5.1) mmol/L Chloride 100 (96-108) mmol/L Carbon Dioxide 30 H (22-29) mmol/L Anion Gap 13 (12-20) BUN 19 H (9-16) mg/dL Creatinine 1.03 (0.5-1.4) mg/dL Estim Creat Clear Calc 130.2 Estimated GFR > 60 Random Glucose 112 (60-115) mg/dL Calcium 9.6 (8.4-10.2) mg/dL COVID-19 ([facility]ABEL) Negative (Negative) COVID-19 Clin Com See Note Discharge Plan Discharge Clinical Impression: Acute viral syndrome Chronic headaches Qualifiers: Headache type: unspecified Intractability: not intractable Qualified Code(s): R51.9 - Headache, unspecified Patient Disposition: Home, Self-Care Instructions: Acute Headache (ED), Viral Syndrome (ED) Additional Instructions: return to ED for any worsening symptoms or concerns please follow up with your primary care doctor in regards to your chronic hea daches negative COVID test Prescriptions: New sumatriptan succinate 50 mg tablet 50 mg PO Q2-4H PRN (Reason: migraine headache) Qty: 10 0RF Rx Instructions: do not exceed 4 doses per 24 hrs cyclobenzaprine 10 mg tablet 10 mg PO TID PRN (Reason: muscle spasm) Qty: 14 0RF ondansetron 4 mg tablet,disintegrating 4 mg PO Q8H PRN (Reason: nausea and vomiting) Qty: 20 0RF No Action omeprazole 40 mg capsule,delayed release(DR/EC) 40 mg PO DAILY Qty: 30 0RF sucralfate 1 gram tablet 1 g PO TID Qty: 90 0RF prednisone 20 mg tablet 40 mg PO DAILY 5 Days Qty: 10 0RF amoxicillin-pot clavulanate 875-125 mg tablet 1 tab PO BID Qty: 14 0RF cyclobenzaprine 10 mg tablet 10 mg PO Q8H PRN (Reason: Muscle spasm) Qty: 14 0RF azithromycin 250 mg tablet See Rx Instructions .ROUTE .COMPLEX Qty: 6 0RF Rx Instructions: take 500 mg today (day 1), then 250 mg for 4 days (days 2-5) codeine-guaifenesin [Guaifenesin AC] 10-100 mg/5 mL liquid 5 ml PO Q6H PRN (Reason: cold symptoms) Qty: 120 0RF albuterol sulfate 90 mcg/actuation HFA aerosol inhaler 1 inh inhalation QID PRN (Reason: shortness of breath or wheezing) Qty: 8.5 0RF Referrals: Merissa Arias MD [Primary Care Provider] - 1 week Stand Alone Forms: Work/School Release
[2021-10-29 11:04] LABS: COVID-19 Test Negative (Negative)
[2021-10-29] MEDS: Acetaminophen 325 MG TABLET 650 MG PO (11:17)
[2021-10-29] MEDS: Cyclobenzaprine HCl 10 MG TABLET PO (11:17)
[2021-10-29 11:29] LABS: MANUAL DIFF FLAG NO
[2021-10-29 11:34] LABS: Basophils Absolute Auto 0.1 X10*3/uL (0.0-0.2); Basophils Percent Auto 0.7 % (0-2); Eosinophils Absolute Auto 0.1 X10*3/uL (0.0-0.4); Eosinophils Percent Auto 1.2 % (0-4); Hematocrit 45.3 % (42.0-52.0); Hemoglobin 14.8 g/dl (14.0-18.0); Imm Gran Abs Auto 0.02 X10*3/uL (0.00-0.03); Imm Gran Pct Auto 0.3 % (0.0-0.4); Lymphocytes Percent Auto 28.6 % (20-40); Mean Corpuscular HGB Conc 32.7 g/dl (31.0-36.0); Mean Corpuscular Volume 82.5 fL (80.0-98.0); Mean Platelet Volume 9.3 fL (9.4-12.4); Monocytes Absolute Auto 0.7 X10*3/uL (0.1-1.2); Neutrophils Absolute Auto 4.1 x10*3/uL (2.0-8.3); Neutrophils Percent Auto 59.2 % (45-73); Platelet Count 227 X10*3/uL (160-400); Red Blood Count 5.49 X10*6/uL (4.60-5.80); Red Cell Distribution Width 13.6 % (11.0-16.0); White Blood Count 6.9 X10*3/uL (4.8-10.8)
[2021-10-29 11:47] LABS: Anion Gap 13 (12-20); Blood Urea Nitrogen 19 mg/dL (9-16); Calcium 9.6 mg/dL (8.4-10.2); Carbon Dioxide 30 mmol/L (22-29); Chloride 100 mmol/L (96-108); Creatinine Clr Calc Pharmacy 130.2; Estimated Glomerular Filt Rate > 60; Glucose Random 112 mg/dL (60-115); Potassium 4.3 mmol/L (3.3-5.1); Sodium 139 mmol/L (135-145)
== END 2021-10-29 12:46 | disposition home or self-care (01) ==
PROVIDERS: Emergency Provider Emergency Medicine; PCP Internal Medicine
DX: B34.9 Viral infection, unspecified (principal); Z20.822 Contact with and (suspected) exposure to COVID-19; R51.9 Headache, unspecified
CPT/HCPCS: 36415; 71046; 80048; 85025; 87635; 99283

== ENCOUNTER 2022-04-01 04:49 | Emergency (ER) | payer MEDICAID, SELFPAY ==
[2022-04-01 04:55] VITALS: BP 107/64; PULSE 60; RESP 18; TEMP 36.2; O2SAT 100; BMI 30.8
[2022-04-01 05:15] LABS: Basophils Percent Auto 0.6 % (0-2); Eosinophils Absolute Auto 0.1 X10*3/uL (0.0-0.4); Eosinophils Percent Auto 1.2 % (0-4); Hematocrit 43.6 % (42.0-52.0); Hemoglobin 13.9 g/dl (14.0-18.0); Imm Gran Abs Auto 0.01 X10*3/uL (0.00-0.03); Imm Gran Pct Auto 0.1 % (0.0-0.4); Lymphocytes Absolute Auto 1.8 X10*3/uL (1.2-4.9); Lymphocytes Percent Auto 25.2 % (20-40); MANUAL DIFF FLAG NO; Mean Corpuscular HGB Conc 31.9 g/dl (31.0-36.0); Mean Corpuscular Hemoglobin 26.3 pg (27.0-33.0); Mean Corpuscular Volume 82.6 fL (80.0-98.0); Mean Platelet Volume 9.3 fL (9.4-12.4); Monocytes Absolute Auto 0.6 X10*3/uL (0.1-1.2); Monocytes Percent Auto 7.6 % (2-11); Neutrophils Absolute Auto 4.7 x10*3/uL (2.0-8.3); Neutrophils Percent Auto 65.3 % (45-73); Platelet Count 246 X10*3/uL (160-400); Red Blood Count 5.28 X10*6/uL (4.60-5.80); Red Cell Distribution Width 13.4 % (11.0-16.0); White Blood Count 7.3 X10*3/uL (4.8-10.8)
[2022-04-01 05:30] LABS: Alanine Aminotransferase 18 U/L (0-40); Albumin Level 4.4 g/dL (3.5-5.0); Alkaline Phosphatase 50 U/L (39-117); Anion Gap 12 (12-20); Aspartate Amino Transferase 21 U/L (5-37); Bilirubin Total 1.3 mg/dL (0.0-1.0); Blood Urea Nitrogen 22 mg/dL (9-16); Calcium 9.7 mg/dL (8.4-10.2); Carbon Dioxide 28 mmol/L (22-29); Chloride 105 mmol/L (96-108); Creatinine Clr Calc Pharmacy 135.6; Estimated Glomerular Filt Rate > 60; Glucose Random 99 mg/dL (60-115); Potassium 4.5 mmol/L (3.3-5.1); Sodium 140 mmol/L (135-145); Total Protein 7.2 g/dL (6.5-8.0)
[2022-04-01 06:35] VITALS: BP 120/74; PULSE 64; RESP 18; TEMP 36.6; O2SAT 98
--- NOTE | 2022-04-01 06:37 | MHC.EDTECH ---
THIS PCT JUST ASSUMED CARE OF PATIENT AT THIS TIME ,VITALS SIGN TAKEN ,PATIENT RESTING ,CALL JOHNS WITHIN REACH .
--- NOTE | 2022-04-01 07:15 | ED_ITS ---
HPI - Headache General Chief Complaint: Headache Stated Complaint: face pain, migraine Time Seen by Provider: 04/01/22 06:40 Source: patient Mode of arrival: ambulatory History of Present Illness HPI Narrative: 41-year-old male with history of migraines and reports he is not being followed by anyone and states that he had an onset of his migraine that started on without nausea or vomiting, he denies any fevers or chills, denies any rhinorrhea or eye tearing. Patient states that this is similar to the typical onset and progression of his migraines. He otherwise denies any speech or extremity issues but does report some blurring in the right eye. Related Data Previous Rx's Medication Instructions Recorded omeprazole 40 mg capsule,delayed 40 mg PO DAILY #30 caps 07/17/20 release sucralfate 1 gram tablet 1 g PO TID #90 tabs 07/17/20 albuterol sulfate 90 mcg/actuation 1 inh inhalation QID PRN shortness 03/28/21 aerosol inhaler of breath or wheezing #8.5 grams azithromycin 250 mg tablet See Rx Instructions PO .COMPLEX #6 03/28/21 tabs codeine 10 mg-guaifenesin 100 mg/5 5 ml PO Q6H PRN cold symptoms #120 03/28/21 mL oral liquid (Guaifenesin AC) mL cyclobenzaprine 10 mg tablet 10 mg PO Q8H PRN Muscle spasm #14 03/28/21 tabs amoxicillin 875 mg-potassium 1 tab PO BID #14 tabs 09/07/21 clavulanate 125 mg tablet prednisone 20 mg tablet 40 mg PO DAILY 5 days #10 tabs 09/07/21 cyclobenzaprine 10 mg tablet 10 mg PO TID PRN muscle spasm #14 10/29/21 tabs ondansetron 4 mg disintegrating 4 mg PO Q8H PRN nausea and 10/29/21 tablet vomiting #20 tabs sumatriptan succinate 50 mg tablet 50 mg PO Q2-4H PRN migraine 10/29/21 headache #10 tabs Allergies Allergy/AdvReac Type Severity Reaction Status Date / Time No Known Allergies Allergy Verified 04/01/22 04:59 Review of Systems Review of Systems: Pertinent positives and negatives as stated in HPI. PMF Past Medical History Source: nursing notes reviewed Medical History Headache Sinusitis Social History Social History Alcohol intake: current Alcohol intake frequency: holidays/special occasions only Patient Tobacco Use Status: Never used Tobacco Smoked in Last 30 Days: No Use of substances other than those prescribed or required for medical reasons: No Advance Directives: No Physical Exam Vital Signs: Vital Signs: Last Vital Signs Temp 97.8 F 04/01/22 06:35 Pulse 64 04/01/22 06:35 Resp 18 04/01/22 06:35 BP 120/74 04/01/22 06:35 Pulse Ox 98 04/01/22 06:35 O2 Del Method 04/01/22 06:35 BMI result Body Mass Index 30.8 VITAL SIGNS: Reviewed. GENERAL: Well developed, well nourished, in no acute distress. HEAD: Normocephalic/atraumatic EYES: PERRLA, EOMI, no nystagmus or palsies noted EARS: Ext canals without abnormality, TMs non-bulging and non-erythematous NOSE: Nares patent bilateral OROPHARYNX: no oral lesions noted, posterior pharynx clear and non-erythematous without noted tonsillar enlargement/erythema/exudates NECK: Supple, no adenopathy LUNGS: Normal breath sounds. No adventitious sounds or accessory muscle use. SpO2<98> CARDIOVASCULAR: Regular rate and rhythm without noted murmurs ABDOMEN: Soft, non-tender, non-distended with bowel sounds. MUSCULOSKELETAL: No tenderness, deformities, or effusions noted on gross inspection. EXTREMITIES: No cyanosis, clubbing or edema. SKIN: Inspection of the skin reveals no rashes NEUROLOGIC: Alert and oriented x 4. Strength and sensation to light touch were grossly intact x 4, cranial nerves 2-12 are grossly intact. Medications Administered Discontinued Medications Generic Name Dose Route Start Last Admin Trade Name Freq PRN Reason Stop Dose Admin Acetaminophen 975 mg 04/01/22 07:14 04/01/22 07:40 Acetaminophen 325 Mg Tablet PO 04/01/22 07:15 975 mg ONCE ONE Administration Acetaminophen/Butalbital/Caffeine 1 tab 04/01/22 07:14 04/01/22 07:40 Butalb/Acetamin/Caff 50/325/40 Tablet PO 04/01/22 07:15 1 tab ONCE ONE Administration Ketorolac Tromethamine 15 mg 04/01/22 07:14 04/01/22 07:40 Ketorolac Tromethamine 15 Mg/Ml Vial IM 04/01/22 07:15 15 mg ONCE ONE Administration Medical Decision Making Medical Decision Making MDM Narrative: 41-year-old male and after review of all investigations my interpretation is this is his normal onset and progression of migraine headache which will be treated with combination analgesics and instructions to follow-up with his primary care provider for consistent management. 1102: On re-evaluation patient is feeling much better, there are no focal deficits and patient is discharged home in stable condition. Differential Diagnosis Please see the discussion above Lab Data Please to the schedule above 04/01/22 05:10 04/01/22 05:10 Labs: Lab Results 04/01/22 04/01/22 04/01/22 Range/Units 05:10 05:10 07:53 WBC 7.3 (4.8-10.8) X10*3/uL RBC 5.28 (4.60-5.80) X10*6/uL Hgb 13.9 L (14.0-18.0) g/dl Hct 43.6 (42.0-52.0) % MCV 82.6 (80.0-98.0) fL MCH 26.3 L (27.0-33.0) pg MCHC 31.9 (31.0-36.0) g/dl RDW 13.4 (11.0-16.0) % Plt Count 246 (160-400) X10*3/uL MPV 9.3 L (9.4-12.4) fL Immature Gran % (Auto) 0.1 (0.0-0.4) % Neut % (Auto) 65.3 (45-73) % Lymph % (Auto) 25.2 (20-40) % [place] % (Auto) 7.6 (2-11) % Eos % (Auto) 1.2 (0-4) % Baso % (Auto) 0.6 (0-2) % Lymph # (Auto) 1.8 (1.2-4.9) X10*3/uL [place] # (Auto) 0.6 (0.1-1.2) X10*3/uL Eos # (Auto) 0.1 (0.0-0.4) X10*3/uL Baso # (Auto) 0.0 (0.0-0.2) X10*3/uL Abs Immat Gran (auto) 0.01 (0.00-0.03) X10*3/uL Absolute Neuts (auto) 4.7 (2.0-8.3) x10*3/uL Absolute Nucleated RBC 0.000 (0.0-0.012) X10*3/uL Nucleated RBC % (auto) 0.0 (0.0-0.2) /100WBC Sodium 140 (135-145) mmol/L Potassium 4.5 (3.3-5.1) mmol/L Chloride 105 (96-108) mmol/L Carbon Dioxide 28 (22-29) mmol/L Anion Gap 12 (12-20) BUN 22 H (9-16) mg/dL Creatinine 0.96 (0.5-1.4) mg/dL Estim Creat Clear Calc 135.6 Estimated GFR > 60 Random Glucose 99 (60-115) mg/dL Calcium 9.7 (8.4-10.2) mg/dL Total Bilirubin 1.3 H (0.0-1.0) mg/dL AST 21 (5-37) U/L ALT 18 (0-40) U/L Alkaline Phosphatase 50 (39-117) U/L Total Protein 7.2 (6.5-8.0) g/dL Albumin 4.4 (3.5-5.0) g/dL COVID-19 (ISABEL) (Negative) COVID-19 Clin Com Influenza Type A (GLENDY) Negative (Negative) Influenza Type B (GLENDY) Negative (Negative) Influenza A & B Note See Note 04/01/22 Range/Units 07:53 WBC (4.8-10.8) X10*3/uL RBC (4.60-5.80) X10*6/uL Hgb (14.0-18.0) g/dl Hct (42.0-52.0) % MCV (80.0-98.0) fL MCH (27.0-33.0) pg MCHC (31.0-36.0) g/dl RDW (11.0-16.0) % Plt Count (160-400) X10*3/uL MPV (9.4-12.4) fL Immature Gran % (Auto) (0.0-0.4) % Neut % (Auto) (45-73) % Lymph % (Auto) (20-40) % [place] % (Auto) (2-11) % Eos % (Auto) (0-4) % Baso % (Auto) (0-2) % Lymph # (Auto) (1.2-4.9) X10*3/uL [place] # (Auto) (0.1-1.2) X10*3/uL Eos # (Auto) (0.0-0.4) X10*3/uL Baso # (Auto) (0.0-0.2) X10*3/uL Abs Immat Gran (auto) (0.00-0.03) X10*3/uL Absolute Neuts (auto) (2.0-8.3) x10*3/uL Absolute Nucleated RBC (0.0-0.012) X10*3/uL Nucleated RBC % (auto) (0.0-0.2) /100WBC Sodium (135-145) mmol/L Potassium (3.3-5.1) mmol/L Chloride (96-108) mmol/L Carbon Dioxide (22-29) mmol/L Anion Gap (12-20) BUN (9-16) mg/dL Creatinine (0.5-1.4) mg/dL Estim Creat Clear Calc Estimated GFR Random Glucose (60-115) mg/dL Calcium (8.4-10.2) mg/dL Total Bilirubin (0.0-1.0) mg/dL AST (5-37) U/L ALT (0-40) U/L Alkaline Phosphatase (39-117) U/L Total Protein (6.5-8.0) g/dL Albumin (3.5-5.0) g/dL COVID-19 (ISABEL) Negative (Negative) COVID-19 Clin Com See Note Influenza Type A (GLENDY) (Negative) Influenza Type B (GLENDY) (Negative) Influenza A & B Note External Record Review External record reviewed: Outpatient record and Prior outpatient labs Discharge Plan Discharge Clinical Impression: Migraine Patient Disposition: Home, Self-Care Instructions: Migraine Headache (ED) Additional Instructions: 1. Tylenol 1000 mg, orally, every 6 hours as needed for pain control. Do not exceed 4000 mg within 24 hours. 2. Ibuprofen 400 mg, orally with milk or food, every 6 hours as needed for pain control. I highly recommend that you take ibuprofen with the Tylenol for improved symptom relief. 3. Please follow-up with your primary care provider and keep a headache journal for improved outpatient management of your symptoms. Return to the ER for any worsening symptoms. Prescriptions: No Action omeprazole 40 mg capsule,delayed release(DR/EC) 40 mg PO DAILY Qty: 30 0RF sucralfate 1 gram tablet 1 g PO TID Qty: 90 0RF prednisone 20 mg tablet 40 mg PO DAILY 5 Days Qty: 10 0RF amoxicillin-pot clavulanate 875-125 mg tablet 1 tab PO BID Qty: 14 0RF cyclobenzaprine 10 mg tablet 10 mg PO Q8H PRN (Reason: Muscle spasm) Qty: 14 0RF azithromycin 250 mg tablet See Rx Instructions .ROUTE .COMPLEX Qty: 6 0RF Rx Instructions: take 500 mg today (day 1), then 250 mg for 4 days (days 2-5) codeine-guaifenesin [Guaifenesin AC] 10-100 mg/5 mL liquid 5 ml PO Q6H PRN (Reason: cold symptoms) Qty: 120 0RF albuterol sulfate 90 mcg/actuation HFA aerosol inhaler 1 inh inhalation QID PRN (Reason: shortness of breath or wheezing) Qty: 8.5 0RF sumatriptan succinate 50 mg tablet 50 mg PO Q2-4H PRN (Reason: migraine headache) Qty: 10 0RF Rx Instructions: do not exceed 4 doses per 24 hrs cyclobenzaprine 10 mg tablet 10 mg PO TID PRN (Reason: muscle spasm) Qty: 14 0RF ondansetron 4 mg tablet,disintegrating 4 mg PO Q8H PRN (Reason: nausea and vomiting) Qty: 20 0RF Referrals: Merissa Arias MD [Primary Care Provider] -
[2022-04-01] MEDS: Acetaminophen 325 MG TABLET 975 MG PO (07:40)
[2022-04-01] MEDS: Ketorolac Tromethamine 15 MG/ML VIAL IM (07:40)
[2022-04-01] MEDS: Butalb/Acetamin/Caff 50/325/40 TABLET 1 TAB PO (07:40)
[2022-04-01 08:18] LABS: IDNOW Serial# BCCEAD1C; Influenza A Negative (Negative); Influenza B2 Negative (Negative)
[2022-04-01 08:19] LABS: COVID-19 Test Negative (Negative); IDNOW Serial# 16C4AD1C
== END 2022-04-01 11:16 | disposition home or self-care (01) ==
PROVIDERS: Emergency Provider Student in an Organized Health Care Education/Training Program; PCP Internal Medicine
DX: G43.909 Migraine, unspecified, not intractable, without status migrainosus (principal); Z20.822 Contact with and (suspected) exposure to COVID-19
CPT/HCPCS: 36415; 80053; 85025; 87502; 87635; 96372; 99284; J1885

== ENCOUNTER 2023-03-02 17:51 | Emergency (ER) | payer MEDICAID, SELFPAY ==
[2023-03-02 18:40] VITALS: BP 116/80; PULSE 84; RESP 18; TEMP 36.2; O2SAT 94; BMI 33.7
--- NOTE | 2023-03-02 18:40 | ED.DIZZY ---
HPI - Dizziness General Chief Complaint: Upper Respiratory Symptoms Stated Complaint: dizziness, neck pain Time Seen by Provider: 03/02/23 20:46 Source: patient Mode of arrival: ambulatory Limitations: no limitations History of Present Illness HPI Narrative: 42-year-old male with no significant past medical history who presents emergency department for evaluation of headache nonproductive cough, lightheadedness time 2 days. Patient states that yesterday he had a gradual onset headache. He points to the back is have asked to localize the pain, he describes the pain is a constant, throbbing sensation. He states that today while he was driving to work he developed dizziness and tunnel vision that lasted seconds to minutes and then resolved. Patient states that since that time he has felt tired and fatigued, he has also developed a nonproductive cough and a sore throat. He denied fever, chills, rhinorrhea, nausea, vomiting or diarrhea. He denied myalgias or arthralgias. He states he did have a similar headache in the past but does not get headaches frequently. He denied numbness, weakness, neck pain. Related Data Previous Rx's Medication Instructions Recorded omeprazole 40 mg capsule,delayed 40 mg PO DAILY #30 caps 07/17/20 release sucralfate 1 gram tablet 1 g PO TID #90 tabs 07/17/20 albuterol sulfate 90 mcg/actuation 1 inh inhalation QID PRN shortness 03/28/21 aerosol inhaler of breath or wheezing #8.5 grams azithromycin 250 mg tablet See Rx Instructions PO .COMPLEX #6 03/28/21 tabs codeine 10 mg-guaifenesin 100 mg/5 5 ml PO Q6H PRN cold symptoms #120 03/28/21 mL oral liquid (Guaifenesin AC) mL cyclobenzaprine 10 mg tablet 10 mg PO Q8H PRN Muscle spasm #14 03/28/21 tabs amoxicillin 875 mg-potassium 1 tab PO BID #14 tabs 09/07/21 clavulanate 125 mg tablet prednisone 20 mg tablet 40 mg (2 x 20 mg) PO DAILY 5 days 09/07/21 #10 tabs cyclobenzaprine 10 mg tablet 10 mg PO TID PRN muscle spasm #14 10/29/21 tabs ondansetron 4 mg disintegrating 4 mg PO Q8H PRN nausea and 10/29/21 tablet vomiting #20 tabs sumatriptan succinate 50 mg tablet 50 mg PO Q2-4H PRN migraine 10/29/21 headache #10 tabs rkadvii-eyqeqftrfbguq-tdmonxea 250 2 tab PO Q6H PRN headache #30 tabs 03/02/23 mg-250 mg-65 mg tablet (Excedrin Migraine) diphenhydramine HCl 25 mg capsule 50 mg (2 x 25 mg) PO Q6H PRN 03/02/23 headache, nausea, vomiting #20 caps metoclopramide HCl 10 mg tablet 10 mg PO Q6H PRN nausea and 03/02/23 (Reglan) vomiting #14 tabs Allergies Allergy/AdvReac Type Severity Reaction Status Date / Time No Known Allergies Allergy Verified 03/02/23 18:40 Review of Systems Review of Systems: Yes all other systems are reviewed and are negative [facility] Past Medical History Medical History Headache Sinusitis Social History Social History Alcohol intake: current Alcohol intake frequency: holidays/special occasions only Patient Tobacco Use Status: Never used Tobacco Advance Directives: No Advance Directives Information Provided: No Physical Exam Vital Signs: Vital Signs: Last Vital Signs Temp 97.9 F 03/02/23 19:47 Pulse 81 03/02/23 19:47 Resp 18 03/02/23 19:47 BP 107/66 03/02/23 19:47 Pulse Ox 98 03/02/23 19:47 O2 Del Method Room Air 03/02/23 19:47 BMI result Body Mass Index 33.7 Vital signs were normal Exam General: Awake, alert in no distress Head: Normocephalic, atraumatic EENT: PERRL, Lids normal, sclera normal, conjunctiva normal, nose normal , ears normal, throat without erythema or exudates Neck: Supple, no adenopathy, no trachea midline or C-spine tenderness Lung: breath sounds symmetric, no wheezing, rales or rhonchi Chest: symmetric movement, nontender Heart: regular rate and rhythm, normal S1, S2 no murmurs or rubs Abdomen: soft, non-tender, nondistended, normal bowel sounds Back: no vertebral tenderness, no CVAT Extremities: no deformities, moves all extremities symmetrically Neuro: Awake, alert, oriented, normal speech, cranial nerves intact, moves all extremities symmetrically Psych: Pleasant, cooperative Course Course Course Narrative: RME: 42yo M w/no sig PMHx c/o MACK, nasal congestion, sore throat, cough, lightheadedness & neck pain x today. Also reports palpitations yesterday EKG, labs, viral testing, orthostatics ordered Full HPI, ROS and PE to be performed by primary ED provider. Medical Decision Making Medical Decision Making MDM Narrative: 42-year-old male who presents emergency department for evaluation of headache, lightheadedness, dizziness, brief change in vision, fatigue, nonproductive cough, sore throat x2 days. Vital signs were normal. Physical examination was unremarkable. My interpretation patient's laboratory evaluation is as follows: CBC and CMP were normal. Patient's COVID-19, influenza and RSV were negative. Rapid strep was negative as well Based on the patient's description of his headache and tunnel vision that he developed, patient's presentation is most consistent with migraine syndrome, viral syndrome is also possible. Patient was prescribed the following regimen to take every 6 hours as needed for headache: Reglan 10 mg, diphenhydramine 50 mg, Excedrin migraine 2 tablets. I did tell him that these medications will make him sleepy that he cannot drive or work while he is taking these medications. He was given printed and verbal instructions and discharged home. Differential Diagnosis Differential Diagnoses: The differential diagnosis associated with the presentation includes Differential diagnosis includes was not limited to migraine headache, intracranial bleed, viral syndrome, COVID-19, influenza, RSV, strep pharyngitis viral pharyngitis Admission/Observation Consideration of admission/observation: Escalation of care including admission/observation considered Lab Data [facility] Lab Attestation statement: I reviewed the patient's lab results. See MDM above four my discussion 03/02/23 19:10 03/02/23 19:10 Labs: Lab Results 03/02/23 Range/Units 19:10 WBC 6.2 (4.8-10.8) X10*3/uL RBC 5.46 (4.60-5.80) X10*6/uL Hgb 14.5 (14.0-18.0) g/dl Hct 45.1 (42.0-52.0) % MCV 82.6 (80.0-98.0) fL MCH 26.6 L (27.0-33.0) pg MCHC 32.2 (31.0-36.0) g/dl RDW 13.3 (11.0-16.0) % Plt Count 232 (160-400) X10*3/uL MPV 9.6 (9.4-12.4) fL Immature Gran % (Auto) 0.2 (0.0-0.4) % Neut % (Auto) 53.2 (45-73) % Lymph % (Auto) 32.6 (20-40) % [place] % (Auto) 11.1 H (2-11) % Eos % (Auto) 2.3 (0-4) % Baso % (Auto) 0.6 (0-2) % Lymph # (Auto) 2.0 (1.2-4.9) X10*3/uL [place] # (Auto) 0.7 (0.1-1.2) X10*3/uL Eos # (Auto) 0.1 (0.0-0.4) X10*3/uL Baso # (Auto) 0.0 (0.0-0.2) X10*3/uL Abs Immat Gran (auto) 0.01 (0.00-0.03) X10*3/uL Absolute Neuts (auto) 3.3 (2.0-8.3) x10*3/uL Absolute Nucleated RBC 0.000 (0.0-0.012) X10*3/uL Nucleated RBC % (auto) 0.0 (0.0-0.2) /100WBC Sodium 140 (135-145) mmol/L Potassium 4.0 (3.3-5.1) mmol/L Chloride 105 (96-108) mmol/L Carbon Dioxide 27 (22-29) mmol/L Anion Gap 12 (12-20) BUN 24 H (9-16) mg/dL Creatinine 0.96 (0.5-1.4) mg/dL Estim Creat Clear Calc 140.2 Estimated GFR > 60 Random Glucose 77 (60-115) mg/dL Calcium 9.2 (8.4-10.2) mg/dL Magnesium 2.1 (1.6-2.6) mg/dL Total Bilirubin 0.7 (0.0-1.0) mg/dL Direct Bilirubin 0.2 (0.0-0.5) mg/dL AST 20 (5-37) U/L ALT 22 (0-40) U/L Alkaline Phosphatase 44 (39-117) U/L Troponin I High Sens 4.3 (<3.5-35.0) ng/L Total Protein 7.2 (6.5-8.0) g/dL Albumin 4.2 (3.5-5.0) g/dL COVID-19 (ISABEL) Negative (Negative) COVID-19 Clin Com See Note Influenza Type A (GLENDY) Negative (Negative) Influenza Type B (GLENDY) Negative (Negative) Influenza A & B Note See Note S. pyogenes GrpA GLENDY Negative (Negative) Prescription Management I considered prescription management with: Pain Medication Discharge Plan Discharge Clinical Impression: Migraine Qualifiers: Migraine type: unspecified Status migrainosus presence: without status migrainosus Intractability: not intractable Qualified Code(s): G43.909 - Migraine, unspecified, not intractable, without status migrainosus Patient Disposition: Home, Self-Care Instructions: Migraine Headache (ED) Additional Instructions: Your blood work was normal. Your COVID-19, RSV, influenza and rapid strep test were negative Your symptoms are consistent with a migraine headache. I want you to take the following 3 medications together every 6 hours as needed for headache, nausea or vomiting. Reglan (metoclopramide) in 10 mg, 1 pill Benadryl 25 mg, 2 pills Excedrin migraine, 2 pills. After you take these medications, lie down in a dark quiet room and try to fall asleep. These medications will make you sleepy, do not drive or work after taking these medications. Follow-up with your doctor in 2 days. Please return to the emergency department if your symptoms get worse or if you develop any symptoms that are concerning to you. Please see work note Prescriptions: New metoclopramide HCl [Reglan] 10 mg tablet 10 mg PO Q6H PRN (Reason: nausea and vomiting) Qty: 14 0RF diphenhydramine HCl 25 mg capsule 50 mg PO Q6H PRN (Reason: headache, nausea, vomiting) Qty: 20 0RF Excedrin Migraine 250-250-65 mg tablet 2 tab PO Q6H PRN (Reason: headache) Qty: 30 0RF No Action omeprazole 40 mg capsule,delayed release(DR/EC) 40 mg PO DAILY Qty: 30 0RF sucralfate 1 gram tablet 1 g PO TID Qty: 90 0RF prednisone 20 mg tablet 40 mg PO DAILY 5 Days Qty: 10 0RF amoxicillin-pot clavulanate 875-125 mg tablet 1 tab PO BID Qty: 14 0RF cyclobenzaprine 10 mg tablet 10 mg PO Q8H PRN (Reason: Muscle spasm) Qty: 14 0RF azithromycin 250 mg tablet See Rx Instructions .ROUTE .COMPLEX Qty: 6 0RF Rx Instructions: take 500 mg today (day 1), then 250 mg for 4 days (days 2-5) codeine-guaifenesin [Guaifenesin AC] 10-100 mg/5 mL liquid 5 ml PO Q6H PRN (Reason: cold symptoms) Qty: 120 0RF albuterol sulfate 90 mcg/actuation HFA aerosol inhaler 1 inh inhalation QID PRN (Reason: shortness of breath or wheezing) Qty: 8.5 0RF sumatriptan succinate 50 mg tablet 50 mg PO Q2-4H PRN (Reason: migraine headache) Qty: 10 0RF Rx Instructions: do not exceed 4 doses per 24 hrs cyclobenzaprine 10 mg tablet 10 mg PO TID PRN (Reason: muscle spasm) Qty: 14 0RF ondansetron 4 mg tablet,disintegrating 4 mg PO Q8H PRN (Reason: nausea and vomiting) Qty: 20 0RF Stand Alone Forms: Work/School Release
--- NOTE | 2023-03-02 18:43 | ECG_ITS ---
Test Reason : LIGHTHEADED Blood Pressure : / mmHG Vent. Rate : 075 BPM Atrial Rate : 075 BPM P-R Int : 170 ms QRS Dur : 090 ms QT Int : 370 ms P-R-T Axes : 043 050 028 degrees QTc Int : 413 ms Normal sinus rhythm Normal ECG When compared with ECG of 06-FEB-2018 09:00, ST no longer elevated in Inferior leads Referred By: Abbey Velazquez Electronically Signed By:Andriy Lebron
[2023-03-02 19:19] LABS: MANUAL DIFF FLAG NO
[2023-03-02 19:24] LABS: Basophils Percent Auto 0.6 % (0-2); Eosinophils Absolute Auto 0.1 X10*3/uL (0.0-0.4); Eosinophils Percent Auto 2.3 % (0-4); Hematocrit 45.1 % (42.0-52.0); Hemoglobin 14.5 g/dl (14.0-18.0); Imm Gran Abs Auto 0.01 X10*3/uL (0.00-0.03); Imm Gran Pct Auto 0.2 % (0.0-0.4); Lymphocytes Percent Auto 32.6 % (20-40); Mean Corpuscular HGB Conc 32.2 g/dl (31.0-36.0); Mean Corpuscular Hemoglobin 26.6 pg (27.0-33.0); Mean Corpuscular Volume 82.6 fL (80.0-98.0); Mean Platelet Volume 9.6 fL (9.4-12.4); Monocytes Absolute Auto 0.7 X10*3/uL (0.1-1.2); Monocytes Percent Auto 11.1 % (2-11); Neutrophils Absolute Auto 3.3 x10*3/uL (2.0-8.3); Neutrophils Percent Auto 53.2 % (45-73); Platelet Count 232 X10*3/uL (160-400); Red Blood Count 5.46 X10*6/uL (4.60-5.80); Red Cell Distribution Width 13.3 % (11.0-16.0); White Blood Count 6.2 X10*3/uL (4.8-10.8)
[2023-03-02 19:37] LABS: Alanine Aminotransferase 22 U/L (0-40); Albumin Level 4.2 g/dL (3.5-5.0); Alkaline Phosphatase 44 U/L (39-117); Anion Gap 12 (12-20); Aspartate Amino Transferase 20 U/L (5-37); Bilirubin Direct 0.2 mg/dL (0.0-0.5); Bilirubin Total 0.7 mg/dL (0.0-1.0); Blood Urea Nitrogen 24 mg/dL (9-16); Calcium 9.2 mg/dL (8.4-10.2); Carbon Dioxide 27 mmol/L (22-29); Chloride 105 mmol/L (96-108); Creatinine Clr Calc Pharmacy 140.2; Estimated Glomerular Filt Rate > 60; Glucose Random 77 mg/dL (60-115); Magnesium 2.1 mg/dL (1.6-2.6); Sodium 140 mmol/L (135-145); Total Protein 7.2 g/dL (6.5-8.0)
[2023-03-02 19:46] LABS: Troponin-I High Sensitivity 4.3 ng/L (<3.5-35.0)
[2023-03-02 19:47] VITALS: BP 107/66; PULSE 81; RESP 18; TEMP 36.6; O2SAT 98
[2023-03-02 19:47] LABS: COVID-19 Test Negative (Negative); IDNOW Serial# BCCEAD1C
[2023-03-02 19:48] LABS: IDNOW Serial# 08D9AD1C; Strep A Nucleic Acid Negative (Negative)
[2023-03-02 20:04] LABS: IDNOW Serial# 9DB6401D; Influenza A Negative (Negative); Influenza B2 Negative (Negative)
[2023-03-02 21:30] VITALS: BP 114/73; PULSE 75; RESP 18; TEMP 36.9; O2SAT 99
== END 2023-03-02 21:32 | disposition home or self-care (01) ==
PROVIDERS: Physician Assistant; Emergency Provider Emergency Medicine Emergency Medical Services
DX: G43.909 Migraine, unspecified, not intractable, without status migrainosus (principal); Z11.52 Encounter for screening for COVID-19; J02.9 Acute pharyngitis, unspecified
CPT/HCPCS: 36415; 80048; 80076; 83735; 84484; 85025; 87502; 87635; 87651; 93005; 99283; 99284

== ENCOUNTER → 2023-03-02 18:43 | Outpatient (BNV) | payer MEDICAID, SELFPAY | PROVIDERS: Emergency Provider Emergency Medicine Emergency Medical Services; Visit Provider Internal Medicine Cardiovascular Disease | DX: R42 Dizziness and giddiness (principal) | CPT/HCPCS: 93010 ==

== ENCOUNTER 2023-03-18 19:42 | Emergency (ER) | payer MEDICAID, SELFPAY ==
[2023-03-18 19:49] VITALS: BP 123/79; PULSE 94; RESP 18; TEMP 36.8; O2SAT 99; BMI 32.1
--- NOTE | 2023-03-18 19:49 | ED_ITS ---
HPI - General Adult General Chief complaint: Upper Respiratory Symptoms Stated complaint: Body aches, headache Time Seen by Provider: 03/18/23 23:34 Source: patient Mode of arrival: ambulatory Limitations: no limitations History of Present Illness HPI narrative: Patient comes accompanied by his , patient complaining body aches and a migraine headache starting yesterday. Patient denies vomiting or diarrhea, no difficulty breathing, complaining of dry cough and nausea Related Data Previous Rx's Medication Instructions Recorded omeprazole 40 mg capsule,delayed 40 mg PO DAILY #30 caps 07/17/20 release sucralfate 1 gram tablet 1 g PO TID #90 tabs 07/17/20 albuterol sulfate 90 mcg/actuation 1 inh inhalation QID PRN shortness 03/28/21 aerosol inhaler of breath or wheezing #8.5 grams azithromycin 250 mg tablet See Rx Instructions PO .COMPLEX #6 03/28/21 tabs codeine 10 mg-guaifenesin 100 mg/5 5 ml PO Q6H PRN cold symptoms #120 03/28/21 mL oral liquid (Guaifenesin AC) mL cyclobenzaprine 10 mg tablet 10 mg PO Q8H PRN Muscle spasm #14 03/28/21 tabs amoxicillin 875 mg-potassium 1 tab PO BID #14 tabs 09/07/21 clavulanate 125 mg tablet prednisone 20 mg tablet 40 mg (2 x 20 mg) PO DAILY 5 days 09/07/21 #10 tabs cyclobenzaprine 10 mg tablet 10 mg PO TID PRN muscle spasm #14 10/29/21 tabs ondansetron 4 mg disintegrating 4 mg PO Q8H PRN nausea and 10/29/21 tablet vomiting #20 tabs sumatriptan succinate 50 mg tablet 50 mg PO Q2-4H PRN migraine 10/29/21 headache #10 tabs bykxhky-khiuvcryegesq-ypjrambl 250 2 tab PO Q6H PRN headache #30 tabs 03/02/23 mg-250 mg-65 mg tablet (Excedrin Migraine) diphenhydramine HCl 25 mg capsule 50 mg (2 x 25 mg) PO Q6H PRN 03/02/23 headache, nausea, vomiting #20 caps metoclopramide HCl 10 mg tablet 10 mg PO Q6H PRN nausea and 03/02/23 (Reglan) vomiting #14 tabs sumatriptan succinate 50 mg tablet 50 mg PO Q2-4H PRN migraine 03/18/23 headache #10 tabs Allergies Allergy/AdvReac Type Severity Reaction Status Date / Time No Known Allergies Allergy Verified 03/18/23 19:51 Review of Systems Review of Systems: Constitutional : No Weight loss, No Fever, No Chills, No Night Sweats, complaining of fatigue, diffuse body aches, generalized malaise ENT/Mouth : No Hearing loss, No Ear Pain, No Nasal Congestion, No Sinus Pain, No Hoarseness, No sore throat, No Rhinorrhea, No Swallowing Difficulty Eyes: No Eye Pain, No Swelling, No Redness, No Foreign Body, No Discharge, No Vision Changes Cardiovascular : No Chest Pain, No SOB, No Dyspnea on Exertion, No Orthopnea, No Edema, No Palpitations Respiratory : Complaining of dry cough, No Sputum, No Wheezing, No Smoke Exposure, No Dyspnea Gastrointestinal : No Nausea, No Vomiting, No Diarrhea, No Constipation, No abdominal Pain, No Hematochezia, No Melena Genitourinary : no irregular bleeding, No Dysuria, No Urinary Frequency, No Hematuria, No Urinary Incontinence, No Urgency, No Flank Pain, No Urinary Flow Changes, No Hesitancy Musculoskeletal : No joint pain, No Myalgias, No Joint Swelling Skin : No Skin Lesions, No rash Neuro : No Weakness, No Numbness, No Paresthesias, No Loss of Consciousness, No Dizziness, complaining of a migraine headache Psych : No Anxiety/Panic, No Depression, No SI/HI/AH/VH, No Social Issues, Heme/Lymph: No Bruising, No Bleeding,No Lymphadenopathy Endocrine : No Polyuria, No Polydipsia, No Temperature Intolerance [facility] Past Medical History Medical History (Updated 03/18/23 @ 23:49 by Coretta Knox MD) Migraine Social History Social History Alcohol intake: never Patient Tobacco Use Status: Never used Tobacco Advance Directives: No Advance Directives Information Provided: No Physical Exam ED Vital Signs: Vital Signs - 24 hr 03/18/23 19:49 03/18/23 23:36 Temperature 98.2 F 98.4 F Pulse Rate 94 113 H Respiratory Rate 18 16 Blood Pressure 123/79 114/68 Pulse Oximetry 99 96 Oxygen Delivery Method Room Air Room Air BMI result Body Mass Index 32.1 Const Other: Appearance: Alert. Oriented X3. Seems uncomfortable Eyes: Pupils equal, round and reactive to light. Seems to have photophobia ENT: Pharynx normal. Neck: Normal inspection. Neck supple. No lymph nodes noted. No crepitus CVS: Normal heart rate and rhythm. Pulses normal. Normal S1 and S2 Respiratory: No respiratory distress. Breath sounds normal. No Wheezing. No rales Abdomen: Soft and nontender. No rigidity. No distention. Skin: Skin warm and dry. Normal skin color. Normal skin turgor. Extremities: No lower extremity edema. No Lacerations. No Rash Neuro: Oriented X 3. No motor deficit. No sensory deficit. Moving all extremities. No slurred speech. CN 2 through 12 grossly intact Psych: calm, cooperative Course Course Course Narrative: This is a rapid medical exam: Additional HPI, ROS, PE not included below will be deferred to primary provider. Patient is a 42-year-old male presenting to the ED with complaint of generalized body aches and chest pain since last night. States chest pain is worse with coughing episodes. Cough is nonproductive. Subjective fever at home. Reports nausea, denies vomiting. Plan: EKG, viral swabs Medications Administered Discontinued Medications Generic Name Dose Route Start Last Admin Trade Name Arashq PRN Reason Stop Dose Admin Diphenhydramine HCl 25 mg 03/18/23 23:40 03/19/23 00:00 Diphenhydramine Hcl 50 Mg/Ml Vial IVPUSH 03/18/23 23:41 25 mg ONCE ONE Administration Sodium Chloride 1,000 mls @ 999 mls/hr 03/18/23 23:40 03/19/23 00:00 Ns IVCONT 03/19/23 00:40 999 mls/hr .Q1H1M ONE Administration Ketorolac Tromethamine 30 mg 03/18/23 23:40 03/19/23 00:02 Ketorolac Tromethamine 30 Mg/Ml Vial IVPUSH 03/18/23 23:41 30 mg ONCE ONE Administration Metoclopramide HCl 10 mg 03/18/23 23:40 03/19/23 00:00 Metoclopramide Hcl 10 Mg/2 Ml Vial IVPUSH 03/18/23 23:41 10 mg ONCE ONE Administration Medical Decision Making Medical Decision Making [facility] Narrative: -my interpretation of labs: Patient tested negative for RSV, flu, COVID -patient receiving IV fluids, IV Reglan, ketorolac and Benadryl for symptomatic relief of the migraine headache -after IV fluids, patient feeling better. Medication for migraine sent to the patient's pharmacy. Differential Diagnosis Differential Diagnoses: The differential diagnosis associated with the presentation includes (As above) Lab Data [facility] Lab Attestation statement: I reviewed the patient's lab results. Labs: Lab Results 03/18/23 Range/Units 20:03 Influenza Type A (PCR) NEGATIVE (Negative) Influenza Type B (PCR) NEGATIVE (Negative) RSV RNA Qual (PCR) NEGATIVE (Negative) SARS-CoV-2 RNA (RT-PCR) NEGATIVE (Negative) Discharge Plan Discharge Clinical Impression: Headache, migraine, Acute viral syndrome Patient Disposition: Home, Self-Care Instructions: Migraine Headache (ED), Viral Syndrome (ED) Additional Instructions: Please follow-up with your primary care physician tomorrow. If you have any worsening or new symptoms, please return to the emergency room or call 911 Prescriptions: New sumatriptan succinate 50 mg tablet 50 mg PO Q2-4H PRN (Reason: migraine headache) Qty: 10 0RF Rx Instructions: do not exceed 4 doses per 24 hrs No Action omeprazole 40 mg capsule,delayed release(DR/EC) 40 mg PO DAILY Qty: 30 0RF sucralfate 1 gram tablet 1 g PO TID Qty: 90 0RF prednisone 20 mg tablet 40 mg PO DAILY 5 Days Qty: 10 0RF amoxicillin-pot clavulanate 875-125 mg tablet 1 tab PO BID Qty: 14 0RF cyclobenzaprine 10 mg tablet 10 mg PO Q8H PRN (Reason: Muscle spasm) Qty: 14 0RF azithromycin 250 mg tablet See Rx Instructions .ROUTE .COMPLEX Qty: 6 0RF Rx Instructions: take 500 mg today (day 1), then 250 mg for 4 days (days 2-5) codeine-guaifenesin [Guaifenesin AC] 10-100 mg/5 mL liquid 5 ml PO Q6H PRN (Reason: cold symptoms) Qty: 120 0RF albuterol sulfate 90 mcg/actuation HFA aerosol inhaler 1 inh inhalation QID PRN (Reason: shortness of breath or wheezing) Qty: 8.5 0RF sumatriptan succinate 50 mg tablet 50 mg PO Q2-4H PRN (Reason: migraine headache) Qty: 10 0RF Rx Instructions: do not exceed 4 doses per 24 hrs cyclobenzaprine 10 mg tablet 10 mg PO TID PRN (Reason: muscle spasm) Qty: 14 0RF ondansetron 4 mg tablet,disintegrating 4 mg PO Q8H PRN (Reason: nausea and vomiting) Qty: 20 0RF metoclopramide HCl [Reglan] 10 mg tablet 10 mg PO Q6H PRN (Reason: nausea and vomiting) Qty: 14 0RF diphenhydramine HCl 25 mg capsule 50 mg PO Q6H PRN (Reason: headache, nausea, vomiting) Qty: 20 0RF Excedrin Migraine 250-250-65 mg tablet 2 tab PO Q6H PRN (Reason: headache) Qty: 30 0RF
--- NOTE | 2023-03-18 19:50 | ECG_ITS ---
Test Reason : CP Blood Pressure : / mmHG Vent. Rate : 101 BPM Atrial Rate : 101 BPM P-R Int : 144 ms QRS Dur : 086 ms QT Int : 324 ms P-R-T Axes : 040 030 020 degrees QTc Int : 420 ms Sinus tachycardia with Premature atrial complexes with Aberrant conduction Possible Left atrial enlargement Borderline ECG When compared with ECG of 02-MAR-2023 19:05, Aberrant conduction is now Present Referred By: Olivia Donnelly Electronically Signed By:NEGRITA ZARAGOZA
--- NOTE | 2023-03-18 20:06 | MHC.EDTECH ---
Patient brought into triage,EKG done per order and sighed by provider and Sars/FLU/RSV completed and sent to lab. Patient brought back to waiting area.
[2023-03-18 20:46] LABS: Influenza A PCR NEGATIVE (Negative); Influenza B PCR NEGATIVE (Negative); Resp Syncy Virus RNA Qual PCR NEGATIVE (Negative); SARS COV2 PCR INHOUSE NEGATIVE (Negative)
[2023-03-18 23:36] VITALS: BP 114/68; PULSE 113; RESP 16; TEMP 36.9; O2SAT 96
[2023-03-19] MEDS: 0.9 % Sodium Chloride 1,000 ML 999 ML IVCONT
[2023-03-19] MEDS: Metoclopramide HCl 10 MG/2 ML VIAL IVPUSH
[2023-03-19] MEDS: diphenhydrAMINE HCL 50 MG/ML VIAL 25 MG IVPUSH
[2023-03-19] MEDS: Ketorolac Tromethamine 30 MG/ML VIAL IVPUSH (00:02)
[2023-03-19 02:15] VITALS: BP 121/61; PULSE 86; RESP 18; TEMP 37.2; O2SAT 97
== END 2023-03-19 03:02 | disposition home or self-care (01) ==
PROVIDERS: Registered Nurse Emergency; Emergency Provider Emergency Medicine
DX: G43.909 Migraine, unspecified, not intractable, without status migrainosus (principal); B34.9 Viral infection, unspecified; R52 Pain, unspecified; Z20.822 Contact with and (suspected) exposure to COVID-19; Z20.828 Contact with and (suspected) exposure to other viral communicable diseases
CPT/HCPCS: 0241U; 93005; 96374; 96375; 99284; 99285; J1200; J1885; J2765

== ENCOUNTER → 2023-03-18 19:50 | Outpatient (BNV) | payer MEDICAID, SELFPAY | PROVIDERS: Emergency Provider Emergency Medicine; Visit Provider Internal Medicine | DX: R00.0 Tachycardia, unspecified (principal) | CPT/HCPCS: 93010 ==

== ENCOUNTER 2023-04-06 06:46 | Emergency (ER) | payer OTHER, SELFPAY ==
[2023-04-06 07:04] VITALS: BP 134/66; PULSE 90; RESP 18; TEMP 37.7; O2SAT 99; BMI 32.5
[2023-04-06 07:48] LABS: COVID-19 Test Positive (Negative); IDNOW Serial# 08D9AD1C; IDNOW Serial# 152EDE1D
[2023-04-06 07:49] LABS: Influenza A Negative (Negative); Influenza B2 Negative (Negative)
--- NOTE | 2023-04-06 08:23 | ED_ITS ---
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 No travel. MD elicited complaint: fever, cough and sore throat Onset (ago): day(s) (3) Consistency: constant Severity: moderate Description of mucous: clear Able to tolerate fluids by mouth: Yes Exacerbating factors: swallowing Relieving factors: nothing Associated symptoms: fever, chills, headache, rhinorrhea, sore throat and cough Treatments prior to arrival: none Related Data Previous Rx's Medication Instructions Recorded omeprazole 40 mg capsule,delayed 40 mg PO DAILY #30 caps 07/17/20 release sucralfate 1 gram tablet 1 g PO TID #90 tabs 07/17/20 albuterol sulfate 90 mcg/actuation 1 inh inhalation QID PRN shortness 03/28/21 aerosol inhaler of breath or wheezing #8.5 grams azithromycin 250 mg tablet See Rx Instructions PO .COMPLEX #6 03/28/21 tabs codeine 10 mg-guaifenesin 100 mg/5 5 ml PO Q6H PRN cold symptoms #120 03/28/21 mL oral liquid (Guaifenesin AC) mL cyclobenzaprine 10 mg tablet 10 mg PO Q8H PRN Muscle spasm #14 03/28/21 tabs amoxicillin 875 mg-potassium 1 tab PO BID #14 tabs 09/07/21 clavulanate 125 mg tablet prednisone 20 mg tablet 40 mg (2 x 20 mg) PO DAILY 5 days 09/07/21 #10 tabs cyclobenzaprine 10 mg tablet 10 mg PO TID PRN muscle spasm #14 10/29/21 tabs ondansetron 4 mg disintegrating 4 mg PO Q8H PRN nausea and 10/29/21 tablet vomiting #20 tabs sumatriptan succinate 50 mg tablet 50 mg PO Q2-4H PRN migraine 10/29/21 headache #10 tabs dwcshbw-wayewfsbrcfor-inyesoii 250 2 tab PO Q6H PRN headache #30 tabs 03/02/23 mg-250 mg-65 mg tablet (Excedrin Migraine) diphenhydramine HCl 25 mg capsule 50 mg (2 x 25 mg) PO Q6H PRN 03/02/23 headache, nausea, vomiting #20 caps metoclopramide HCl 10 mg tablet 10 mg PO Q6H PRN nausea and 03/02/23 (Reglan) vomiting #14 tabs sumatriptan succinate 50 mg tablet 50 mg PO Q2-4H PRN migraine 03/18/23 headache #10 tabs ibuprofen 600 mg tablet 600 mg PO Q6H PRN pain #30 tabs 04/06/23 nirmatrelvir 300 mg (150 mg See Rx Instructions PO .COMPLEX 04/06/23 x2)-ritonavir 100 mg tablet,dose #30 ea pack (Paxlovid) ondansetron 4 mg disintegrating 4 mg PO Q8H PRN nausea and 04/06/23 tablet vomiting #20 tabs Allergies Allergy/AdvReac Type Severity Reaction Status Date / Time No Known Allergies Allergy Verified 04/06/23 07:09 Review of Systems Review of Systems: Constitutional : positive Fever, positive Chills, positive fatigue, positive Malaise ENT/Mouth : positive sore throat, positive runny nose Eyes: No Discharge Cardiovascular : No Chest Pain, No SOB Respiratory : No Cough, No Sputum Gastrointestinal : No Nausea, No Vomiting, No Diarrhea Genitourinary : No Dysuria, No Urinary Frequency Musculoskeletal : positive Myalgia Skin : No rash Neuro : No Headache PMFSH Past Medical History Attestation statement: The following information was validated with the patient. Source: old records reviewed Onset Date is defined in the Problem List Problems that require an onset date and time if occurred within 24 hrs of arrival to the ED Aortic Dissection and Rupture; Neurologic impairment; Cardiopulmonary Arrest; Endotracheal Intubation; Insertion or Replacement of Mechanical Circulatory Assist Device Medical History Migraine Social History Social History Alcohol intake: never Patient Tobacco Use Status: Never used Tobacco Physical Exam Vital Signs: Vital Signs: Last Vital Signs Temp 100 F 04/06/23 07:04 Pulse 90 04/06/23 07:04 Resp 18 04/06/23 07:04 BP 134/66 01/17/24 07:04 Pulse Ox 99 04/06/23 07:04 O2 Del Method Room Air 04/06/23 07:04 BMI result Body Mass Index 32.5 Appearance: Alert. Oriented X3. No acute distress. Eyes: Pupils equal, round and reactive to light. ENT: Pharynx mild erythema no exudates Neck: Normal inspection. Neck supple. CVS: Normal heart rate and rhythm. Pulses normal. Respiratory: No respiratory distress. Breath sounds normal. Abdomen: Soft and nontender. Skin: Skin warm and dry. Normal skin color. Normal skin turgor. Extremities: No lower extremity edema. No calf ttp Neuro: Oriented X 3. No motor deficit. No sensory deficit. Medical Decision Making Medical Decision Making MDM Narrative: 42 yo male with PMH of migraines here with c/o URI symptoms cough sore throat (no signs of deeper space infection, tolerating secretions) at this time viral panel is ordered, he has clear lungs. He is not hypoxic. He wants paxlovid after discussion - risks and benefits. He has normal kidney function. Differential Diagnosis Differential Diagnoses: The differential diagnosis associated with the presentation includes covid or flu Admission/Observation Consideration of admission/observation: Escalation of care including admission/observation considered no hypoxia, not toxic, can be managed as outpatient Lab Data [facility] Lab Attestation statement: I reviewed the patient's lab results. Labs: Lab Results 04/06/23 Range/Units 07:22 COVID-19 (ISABEL) Positive A (Negative) COVID-19 Clin Com See Note Influenza Type A (GLENDY) Negative (Negative) Influenza Type B (GLENDY) Negative (Negative) Influenza A & B Note See Note External Record Review External record reviewed: Inpatient record Prescription Management I considered prescription management with: Antiviral and Other Discharge Plan Discharge Clinical Impression: COVID-19 Patient Disposition: Home, Self-Care Instructions: COVID-19 (Coronavirus Disease 2019) (ED) Additional Instructions: return for worsening chest pain, breathing inability to walk to your own bathroom or any other concerns. stay hydrated, take tylenol and motrin. Regrese si el dolor en el pecho empeora, si tiene dificultad para respirar para caminar hasta ring propio ba?o o cualquier otra inquietud. mantente hidratado, liyah tylenol y motrin. Prescriptions: New ibuprofen 600 mg tablet 600 mg PO Q6H PRN (Reason: pain) Qty: 30 0RF ondansetron 4 mg tablet,disintegrating 4 mg PO Q8H PRN (Reason: nausea and vomiting) Qty: 20 0RF Paxlovid 300 mg (150 mg x 2)-100 mg tablets,dose pack See Rx Instructions .ROUTE .COMPLEX Qty: 30 0RF Rx Instructions: take TWO 150 mg tablets of nirmatrelvir with ONE 100 mg tablet of ritonavir twice daily for 5 days No Action omeprazole 40 mg capsule,delayed release(DR/EC) 40 mg PO DAILY Qty: 30 0RF sucralfate 1 gram tablet 1 g PO TID Qty: 90 0RF prednisone 20 mg tablet 40 mg PO DAILY 5 Days Qty: 10 0RF amoxicillin-pot clavulanate 875-125 mg tablet 1 tab PO BID Qty: 14 0RF cyclobenzaprine 10 mg tablet 10 mg PO Q8H PRN (Reason: Muscle spasm) Qty: 14 0RF azithromycin 250 mg tablet See Rx Instructions .ROUTE .COMPLEX Qty: 6 0RF Rx Instructions: take 500 mg today (day 1), then 250 mg for 4 days (days 2-5) codeine-guaifenesin [Guaifenesin AC] 10-100 mg/5 mL liquid 5 ml PO Q6H PRN (Reason: cold symptoms) Qty: 120 0RF albuterol sulfate 90 mcg/actuation HFA aerosol inhaler 1 inh inhalation QID PRN (Reason: shortness of breath or wheezing) Qty: 8.5 0RF sumatriptan succinate 50 mg tablet 50 mg PO Q2-4H PRN (Reason: migraine headache) Qty: 10 0RF Rx Instructions: do not exceed 4 doses per 24 hrs cyclobenzaprine 10 mg tablet 10 mg PO TID PRN (Reason: muscle spasm) Qty: 14 0RF ondansetron 4 mg tablet,disintegrating 4 mg PO Q8H PRN (Reason: nausea and vomiting) Qty: 20 0RF metoclopramide HCl [Reglan] 10 mg tablet 10 mg PO Q6H PRN (Reason: nausea and vomiting) Qty: 14 0RF diphenhydramine HCl 25 mg capsule 50 mg PO Q6H PRN (Reason: headache, nausea, vomiting) Qty: 20 0RF Excedrin Migraine 250-250-65 mg tablet 2 tab PO Q6H PRN (Reason: headache) Qty: 30 0RF sumatriptan succinate 50 mg tablet 50 mg PO Q2-4H PRN (Reason: migraine headache) Qty: 10 0RF Rx Instructions: do not exceed 4 doses per 24 hrs Stand Alone Forms: Work/School Release Print Language: St Helenian
== END 2023-04-06 08:43 | disposition home or self-care (01) ==
PROVIDERS: Emergency Provider Emergency Medicine
DX: U07.1 COVID-19 (principal)
CPT/HCPCS: 87502; 87635; 99282; 99283

== ENCOUNTER 2024-07-17 12:12 | Outpatient (REF) | payer OTHER, SELFPAY ==
--- NOTE | ~2024-07-17 | XR_ITS ---
EXAMINATION: XR CHEST CLINICAL INFORMATION: left posterior chest pain COMPARISON: 10/29/2021 TECHNIQUE: 2 views of the chest were obtained. FINDINGS: The cardiac, hilar, and mediastinal contours are normal. The lungs are clear bilaterally. There is no pneumothorax or pleural effusion. There is no focal osseous or soft tissue abnormality. XR/XR chest 2V IMPRESSION: Normal chest. Electronically signed by: Graham Mccarthy MD 07/17/2024 02:36 PM EDT
--- OUTSIDE RECORDS SUMMARY | 2024-07-17 14:13 | XMS_ITS | Encounter Summary ---
Author Organization [facility] Address [address] [place] [address] Care Team Providers Care Packing Machine Feeder Name Role Phone Merissa Arias MD Primary Care Provider + Encounter Details Date Type Department Care Team (Latest Contact Info) Description 09/13/2018 Abstract [facility] CONVERSIONS Dental, Provider, DDS Social History Tobacco Use Types Packs/Day Years Used Date Smoking Tobacco: Never Assessed Sex and Gender Information Value Date Recorded Sex Assigned at Male 01/18/2022 10:21 AM EDT Legal Sex Male 10:21 AM EDT Gender Identity Male 01/18/2022 10:21 AM EDT Sexual Orientation Straight 01/18/2022 10 :21 AM EDT documented as of this encounter Plan of Treatment Upcoming Encounters Date Type Department Care Team (Late st Contact Info) Description 09/28/2024 10:45 AM EDT Office Visit [facility] MEDICINE [address] [place], [place] [phone] Merissa Arias MD [address] [place] [address] documented as of this encounter Visit Diagnoses Not on filedocumented in this encounter Care Teams Packing Machine Feeder Relationship Specialty Start Date End Date Merissa Arias MD [address] [place], [place] [phone] PCP - General Family Medicine 08/31/16 documented as of this encounter
--- OUTSIDE RECORDS SUMMARY | 2024-07-17 14:14 | XMS_ITS | Encounter Summary ---
Author Organization [employer] Address [address] [place] [address] Care Team Providers Care Materials Manager Name Role Phone Merissa Arias MD Primary Care Provider + Encounter Details Date Type Department Care Team (Latest Contact Info) Description 07/17/2024 Travel Social History Tobacco Use Types Packs/Day Years Used Date Smoking Tobacco: Never Passive Smoke Exposure: Never Smokeless Tobacco: Never Alcohol Use Standard Drinks/Week Comments Never 0 (1 standard drink = 0.6 oz pur e alcohol) Housing Stability Answer Date Recorded What is your housing situation today? I have karlsury rios 02/08/[address] you li ve. Do you have problems with any of the following? None of the above 02/08/2023 Food Insecurity Answer Date Recorded Within the past 12 months, y ou worried that your food would run out before you got money to buy more: Never True 02/08/2023 Within the past 12 months,th e food you bought just didn't last and you didn't have enough money to get more: Never True Transportation Answer Date Recorded In the past 12 months, has l ack of transportation kept you from medical appts, meetings, work or from getting things needed for daily living? No 02/08/2023 Utilities Answer Date Recorded In the past 12 months, has t he electric, gas, oil or water company threatened to shut off services in your home? No 02/08/2023 Depression Answer Date Recorded Patient Health Questionnaire-2 Score 0 02/08/2023 Sex and Gender Information Value Date Recorded Sex Assigned at Male 01/18/2022 10:21 AM EDT Legal Sex Male 10:21 AM EDT Gender Identity Male 01/18/2022 10:21 AM EDT Sexual Orientation Straight 01/18/2022 10 :21 AM EDT documented as of this encounter Plan of Treatment Upcoming Encounters Date Type Department Care Team (Late st Contact Info) Description 09/28/2024 10:45 AM EDT Office Visit [facility] MEDICINE [address] [place] [address] Merissa Arias MD [address] [place] [address] documented as of this encounter Visit Diagnoses Not on filedocumented in this encounter Care Teams Materials Manager Relationship Specialty Start Date End Date Merissa Arias MD [address] [place] [address] PCP - General Family Medicine 08/31/16 documented as of this encounter
--- OUTSIDE RECORDS SUMMARY | 2024-07-17 14:14 | XMS_ITS | Encounter Summary ---
Author Organization [employer] Address [address] [place] [address] Care Team Providers Care Pre School Teacher Name Role Phone Merissa Arias MD Primary Care Provider + Reason for Referral * Imaging (Routine) - Authorized Specialty Diagnoses / Procedures Referred By Contac t Referred To Contact Radiology Diagnoses Acute left-sided thoracic back pain Procedures CT Abdomen Pelvis w/o Contrast Dl Breaux MD [address] [place] [address] Phone: tel: fax: [address] Phone: tel: fax: Referral ID Status Reason Start Date Expiration Date V isits Requested Visits Authorized [id number] Authorized 07/17/2024 07/17/2025 1 1 Reason for Visit * Reason Comments Back Pain Encounter Details Date Type Department Care Team (Late st Contact Info) Description 07/17/2024 11:00 AM EDT Office Visit [facility] [address] [place], [place] [phone] Acute left-sided thoracic back pain (Primary Dx); Posterior chest pain; Chronic tension-type headache, not intractable; Cervical paraspinal muscle spasm Social History Tobacco Use Types Packs/Day Years Used Date Smoking Tobacco: Never Passive Smoke Exposure: Never Smokeless Tobacco: Never Alcohol Use Standard Drinks/Week Comments Never 0 (1 standard drink = 0.6 oz pur e alcohol) Housing Stability Answer Date Recorded What is your housing situation today? I have karl sing 02/08/[address] you li [...] AM EDT documented as of this encounter Last Filed Vital Signs Vital Sign Reading Time Taken Comments Blood Pressure 107/72 07/17/2024 11:21 AM EDT Pulse 73 07/17/2024 11:21 AM EDT Temperature 36.7 ??C (98 ??F) 07/17/2024 11:21 AM EDT Respiratory Rate 17 07/17/2024 11:21 AM EDT Oxygen Saturation 99% 07/17/2024 11:21 AM EDT Inhaled Oxygen Concentration - - Weight 116 kg (256 lb 12.8 oz) 07/17/2024 11:21 AM EDT Height - - Body Mass Index 32.97 06/20/2023 9:46 AM EDT documented in this encounter Plan of Treatment Upcoming Encounters Date Type Department Care Team (Late st Contact Info) Description 09/28/2024 10:45 AM EDT Office Visit [facility] [address] [place] [address] Merissa Arias MD [address] [place] [address] Scheduled Orders Name Type Priority Associated Diagnoses Orde r Schedule XR Chest 2 Views Imaging Routine Posterior chest pain Expected: 07/17/2024, Expires: 07/17/2025 CT Abdomen Pelvis w/o Contrast Imaging Routine Acute left-sided thoracic back pain Expected: 07/17/2024, Expires: 07/17/2025 documented as of this encounter Visit Diagnoses Diagnosis Acute left-sided thoracic back pain- Primary Posterior chest pain Chronic tension-type headache, not intractable Chronic tension type headache Cervical paraspinal muscle spasm Spasm of muscle documented in this encounter Care Teams Pre School Teacher Relationship Specialty Start Date End Date Merissa Arias MD [address] [place] [id number] PCP - General Family Medicine 08/31/16 documented as of this encounter
--- OUTSIDE RECORDS SUMMARY | 2024-07-17 14:14 | XMS_ITS | Clinical Summary ---
Author Organization [employer] Address [address] [facility] [address] [place] [address] Care Team Providers Care Medical Scientific Officer Name Role Phone Merissa Arias MD Primary Care Provider + Allergies No known active allergies Medications * This document contains information received from the source organization and may not represent a complete record from that organization. azelastine (Optivar) 0.05 % ophthalmic solution Administer 1 drop into affected eye(s) every 12 (twelve) hours. 03/18/20 21 Active betamethasone dipropionate (Diprolene) 0.05 % ointment Apply topically at bed time. 12/16/19 21 Active loratadine (Claritin) 10 MG tablet Take 1 tablet by mouth at bed time. 09/17/19 22 Active raNITIdine (Zantac) 150 MG tablet take 1 tablet by oral route 2 times every day 08/25/19 19 Active ibuprofen 400 MG tabletIndicatio ns:Chronic tension-type headache, not intractable 1-2 tabs po q8h prn pain/headache /fever 90 tablet 02/09/20 23 Active fluticasone (Flonase) 50 MCG/ACT nasal sprayIndication s:Posterior rhinorrhea INSTILL 1 SPRAY IN EACH NOSTRIL ONCE DAILY IN THE MORNING 48 g 02/09/20 23 Active lidocaine (Lidoderm) 5 % patch Apply 1 patch topically Once per day. Remove & discard patch within 12 hours or as directed by MD. 30 patch 2 07/18/19 25 026 Active acetaminophen (Tylenol) 500 MG tablet Take 1 tablet (500 mg) by mouth every 8 (eight) hours if needed for moderate pain. 30 tablet 07/18/19 25 Active ibuprofen 400 MG tablet Take 1 tablet (400 mg) by mouth every 6 (six) hours if needed for moderate pain or fever for up to 30 doses. 30 tablet 07/18/19 25 Active tiZANidine (Zanaflex) 2 MG tabletIndicatio ns:Cervical paraspinal muscle spasm Take 1 tablet (2 mg) by mouth if needed at bedtime for muscle spasms. May take 1-2 tablet by mouth at bedtime prn pain 30 tablet 07/18/19 25 025 Active acetaminophen (Tylenol) 500 MG tablet Take 1 tablet by mouth every 8 (eight) hours. 02/07/20 18 025 Discontinued(R eorder (will not trigger notification to Pharmacy)) tiZANidine (Zanaflex) 2 MG tabletIndicatio ns:Cervical paraspinal muscle spasm Take 2 tablets (4 mg) by mouth at bedtime. 30 tablet 02/09/20 23 025 Discontinued(R eorder (will not trigger notification to Pharmacy)) Active Problems Problem Noted Date Diagnosed Date Prediabetes 06/20/2023 Assessment & Plan (06/20/2023 10:45 AM EDT): Last year HbA1c was 5.9. Counseled re more frequent low calorie/carb meals and information were provided to the pt. Encouraged physical activity as tolerated. FU in 6 months for PE and will repeat HbA1c then. Grief 06/20/2023 Assessment & Plan (06/21/2023 4:19 PM EDT): Due to younger sister passing. Patient wants to be referred to counseling. Will send a message to to reach out to patient. Exposure to COVID-19 virus 02/08/202302/08 COVID-19 02/08/2023 02/08/2023 Seasonal allergies 02/08/2023 02/08/2023 Microscopic hematuria 02/08/2023 02/08/2023 Posterior rhinorrhea 02/08/2023 02/08/2023 Assessment & Plan (02/08/2023 11:19 AM EST): It may be contributing to headache Use Flonase daily FU in 4 wks Cervical paraspinal muscle spasm 02/08/2023 Assessment & Plan (06/20/2023 10:44 AM EDT): Resolved with home-based exercises. Reconsult and take Tylenol prn for pain. Assessment & Plan (02/08/2023 11:19 AM EST): Mild to moderate, refer to PT Use Tylenol and Tizanidine as above Genitourinary Chlamydia infection 06/26/2018 02/08/2023 Chest pain 02/06/2018 02/08/2023 Headache disorder 11/10/2017 02/08/2023 Cobalamin deficiency 12/08/2016 02/08/2023 Visual impairment 12/08/2016 02/08/2023 Gastroesophageal reflux disease 10/05/2011 02/08/2023 Tension-type headache 10/05/2011 02/08/2023 Assessment & Plan (02/08/2023 11:19 AM EST): Most likely tensional, has mild cervical spasm Take Ibuprofen and Tizanidine every night for 1-2 wks then PRN Recommended acupuncture at our acupuncture clinic Refer to PT Fu in 4-6 wks w/ me Resolved Problems Problem Noted Date Diagnosed Date Resolved Date Acute headache 02/08/2023 02/08/2023 02/08/2023 Encounters Date Type Department Care Team Description 07/17/2024 11:00 AM EDT Office Visit [facility] [address] [place] [phone] Acute left-sided thoracic back pain (Primary Dx); Posterior chest pain; Chronic tension-type headache, not intractable; Cervical paraspinal muscle spasm 07/17/2024 Travel 07/03/2024 Telephone [facility] [address] [place] [phone] Merissa Arias MD September recall; [facility] Day 7 (09/28/24) 04/18/2024 Telephone [facility] [address] [place] [phone] Merissa Arias MD June recall from Last 3 Months Immunizations Name Administration Dates Next Due clypd Covid-19 Vaccine 12+ Bivalent 04/12/2022 Family History Medical History Relation Name Comments Hypertension Maternal Grandmother Relation Name Status Comments Maternal Grandmother Social History Tobacco Use Types Packs/Day Years Used Date Smoking Tobacco: Never Passive Smoke Exposure: Never Smokeless Tobacco: Never Tobacco Cessation:Counseling Given: Not Answered Alcohol Use Standard Drinks/Week Comments Never 0 (1 standard drink = 0.6 oz pur e alcohol) Housing Stability Answer Date Recorded What is your housing situation today? I have karl gabriel 02/08/[address] you li [...] Orientation Straight 01/18/2022 10 :21 AM EDT Last Filed Vital Signs Vital Sign Reading Time Taken Comments Blood Pressure 107/72 07/17/2024 11:21 AM EDT Pulse 73 07/17/2024 11:21 AM EDT Temperature 36.7 ??C (98 ??F) 07/17/2024 11:21 AM EDT Respiratory Rate 17 07/17/2024 11:21 AM EDT Oxygen Saturation 99% 07/17/2024 11:21 AM EDT Inhaled Oxygen Concentration - - Weight 116 kg (256 lb 12.8 oz) 07/17/2024 11:21 AM EDT Height 188 cm (6' 2 ) 06/20/2023 9:46 AM EDT Body Mass Index 32.97 06/20/2023 9:46 AM EDT Plan of Treatment Upcoming Encounters Date Type Department Care Team (Late st Contact Info) Description 09/28/2024 10:45 AM EDT Office Visit [facility] [address] [place] [address] Merissa Arias MD [address] [place], [place] [phone] Health Maintenance Due Date Last Done Comments Dental Prophylaxis 1982 HIV Screening 1982 Lipid Panel 1982 Alcohol/Substance Use Screening 1994 Family Planning (PISQ) 1997 Hepatitis C Screening 2000 Hepatitis B Vaccines (3 of 3 - 19+ 3-dose series) 05/13/2021 03/18/2021, 06/26/2018 Dental Oral Exam 10/21/2022 04/22/2022 Dental X-Ray: Bitewings 04/23/2023 04/22/2022 COVID-19 Vaccine ( season) 2023 04/12/2022, 05/05/2021, 09/09/2020, Additional history exists Influenza Vaccine (#1) 2023 , 05/29/2019, 12/22/2017, Additional history exists Depression Screening 02/09/2024 02/08/2023, 02/09/20 23 Diabetes: Hemoglobin A1C 02/09/2024 02/08/2023 SDOH Screening 06/19/2024 06/20/2023 Dental X-Ray: Full Mouth 04/23/2025 04/22/2022 Tobacco Screening 07/17/2025 07/17/2024 DTaP/Tdap/Td Vaccines (4 - Td or Tdap) 09/03/2031 09/02/2021, 01/09/2013, 12/23/2010 Zoster Vaccines (1 of 2) 2032 RSV Patients and Patients Aged 60 years or older (1 - 1-dose 75+ series) 2057 HIB Vaccines Aged Out No longer eligi ble based on patient's age to complete this topic HPV Vaccines Aged Out No longer eligi ble based on patient's age to complete this topic Hepatitis A Vaccines Aged Out No long er eligible based on patient's age to complete this topic IPV Vaccines Aged Out No longer eligi ble based on patient's age to complete this topic Meningococcal Vaccine Aged Out No bob izaiah eligible based on patient's age to complete this topic Pneumococcal Vaccine: Pediatrics (0 to 5 Years) and At-Risk Patients (6 to 49) Years) Aged Out No longer eligible based on patient's age to complete this topic RSV under 20 months Aged Out No longe r eligible based on patient's age to complete this topic Rotavirus Vaccines Aged Out No longer eligible based on patient's age to complete this topic Procedures Procedure Name Priority Date/Time Associated Diagnosis Comments POCT GLYCATED HEMOGLOBIN, TOTAL Routine 02/08/2023 3:42 PM EST Chronic tension-type headache, not intractable INTRAORAL - COMPLETE SERIES OF RADIOGRAPHIC IMAGES Routine 04/22/2022 10:00 AM EST PERIODIC ORAL EVALUATION - ESTABLISHED PATIENT Routine 04/22/2022 10:00 AM EST from Last 3 Months or Most Recently Relevant to Health Maintenance Results * POCT HGB A1C (02/08/2023 3:42 PM EST) Hemoglobin A1C 5.9 4.0 - 6.0 % QC Media Lot # [id number] Lot# Expiration Date Blood 02/08/2023 3:42 PM EST Merissa Arias MD POINT OF CARE TEST ENTER /EDIT ORDERABLES Final Result from Last 3 Months or Most Recently Relevant to Health Maintenance Insurance [employer] [facility] [place] [id number] Care Teams Medical Scientific Officer Relationship Specialty Start Date End Date Merissa Arias MD [address] [place] [phone] PCP - General Family Medicine 08/31/16
== END 2024-07-17 12:13 | disposition home or self-care (01) ==
LOC: HO.HHCX 12:12
PROVIDERS: Visit Provider Emergency Medicine
DX: R07.89 Other chest pain (principal)
CPT/HCPCS: 71046

== ENCOUNTER → 2024-07-17 12:12 | Outpatient (BNV) | payer SELFPAY | PROVIDERS: Visit Provider Radiology Diagnostic Radiology | DX: R07.9 Chest pain, unspecified (principal) | CPT/HCPCS: 71046 ==

== ENCOUNTER 2024-10-01 09:13 | Emergency (ER) | payer OTHER, SELFPAY ==
--- NOTE | ~2024-10-01 | CT_ITS ---
EXAMINATION: CT ABDOMEN AND PELVIS WITH CONTRAST CLINICAL INFORMATION: Abdominal pain DLP: 880 mGY*cm COMPARISON: October 01, 2024 TECHNIQUE: Multidetector volumetric images were obtained from the superior aspect of the liver through the pubic symphysis following administration 85 mL of Omnipaque 350 intravenous contrast. Sagittal and coronal reformatted images were obtained on the technologist's workstation. Oral contrast: No This CT examination was performed using dose optimization techniques as appropriate, variously including the following: *Automated exposure control *Adjustment of mA and/or kV according to patient size (this includes techniques or standardized protocols for targeted exams where dose is matched to indication/reason for exam; i.e. extremities or head) *Use of iterative reconstruction technique FINDINGS: LUNG BASES: The visualized lung bases are unremarkable. LIVER, GALLBLADDER, AND BILIARY TREE: Mild geographic fatty changes are evident in the liver, somewhat sparing the left hepatic and caudate lobes. The gallbladder is unremarkable with no evidence of radiopaque gallstones, gallbladder wall thickening, or obvious pericholecystic inflammatory changes. PANCREAS: Unremarkable. SPLEEN: Unremarkable. ADRENAL GLANDS: Unremarkable. KIDNEYS AND URETERS: The kidneys are normal in size, shape, and attenuation. No hydronephrosis, hydroureter, or calculi seen. No perinephric stranding. BLADDER: Unremarkable. GASTROINTESTINAL TRACT: The small and large bowel are unremarkable. The appendix is unremarkable. ABDOMINAL WALL: Small supraumbilical hernia contains adipose tissue, unchanged. LYMPH NODES: Normal. VASCULAR: Unremarkable. PELVIC VISCERA: Unremarkable. OSSEOUS STRUCTURES: There is an 11 mm bony exostosis projecting anteromedially from the anterior wall of the right acetabulum, unchanged since the prior. Could represent a small pedunculated osteochondroma. There is small degenerative cyst in the left acetabular roof CT/CT abdomen pelvis w IV con IMPRESSION: No acute abnormality. No interval change since the prior. 11 mm bony exostosis projecting anteromedially from the anterior wall of the right acetabulum is likely of no clinical consequence. Fleischner guidelines were followed. Electronically signed by: Dexter Ames MD 10/01/2024 11:42 AM EDT
[2024-10-01 09:19] VITALS: BP 122/69; PULSE 89; RESP 16; TEMP 36; O2SAT 100; BMI 31.9
[2024-10-01 09:35] LABS: MANUAL DIFF FLAG NO
[2024-10-01 09:37] LABS: Hematocrit 44.4 % (42.0-52.0); Hemoglobin 14.8 g/dl (14.0-18.0); Imm Gran Abs Auto 0.02 X10*3/uL (0.00-0.03); Imm Gran Pct Auto 0.3 % (0.0-0.4); Lymphocytes Absolute Auto 2.3 X10*3/uL (1.2-4.9); Mean Corpuscular HGB Conc 33.3 g/dl (31.0-36.0); Mean Corpuscular Hemoglobin 27.3 pg (27.0-33.0); Mean Corpuscular Volume 81.9 fL (80.0-98.0); NRBC Abs Auto 0.000 X10*3/uL (0.0-0.012); NRBC Pct Auto 0.0 /100WBC (0.0-0.2); Platelet Count 227 X10*3/uL (160-400); Red Blood Count 5.42 X10*6/uL (4.60-5.80); White Blood Count 6.4 X10*3/uL (4.8-10.8)
[2024-10-01 09:53] LABS: Alanine Aminotransferase 26 U/L (0-40); Albumin Level 4.3 g/dL (3.5-5.0); Alkaline Phosphatase 49 U/L (39-117); Anion Gap 13 (12-20); Aspartate Amino Transferase 22 U/L (5-37); Blood Urea Nitrogen 16 mg/dL (9-16); Calcium 9.2 mg/dL (8.4-10.2); Carbon Dioxide 26 mmol/L (22-29); Chloride 107 mmol/L (96-108); Creatinine Clr Calc Pharmacy 115.7; Estimated Glomerular Filt Rate > 60; Lipase 24 U/L (8-78); Potassium 4.1 mmol/L (3.3-5.1); Sodium 142 mmol/L (135-145); Total Protein 6.9 g/dL (6.5-8.0)
[2024-10-01 10:29] LABS: Resp Syncy Virus RNA Qual PCR NEGATIVE (Negative); SARS COV2 PCR INHOUSE NEGATIVE (Negative)
--- NOTE | 2024-10-01 10:45 | ED_ITS ---
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 Patient states that over the last week he has had abdominal pain and nausea with 2 episodes of vomiting beginning yesterday. Patient denies any dizziness, lightheadedness, fever, chills, blurry vision, double vision, loss of vision, chest pain, difficulty breathing, shortness of breath, back pain, night sweats, pain with urination, increased urinary frequency, increased urinary urgency, blood in his urine or stool, syncope or a near syncopal episode, recent trauma or falls, bowel incontinence, bladder incontinence, or any other complaints at this time. Onset (ago): week(s) (1 week of pain, 2 days of nausea and 1 day of vomiting) Relieving factors: none Exacerbating factors: none Associated symptoms: nausea/vomiting Treatments prior to arrival: none Related Data Previous Rx's ?Medication ?Instructions ?Recorded omeprazole 40 mg capsule,delayed 40 mg PO DAILY #30 ca ps 07/17/20 release sucralfate 1 gram tablet 1 g PO TID #90 tabs 07/17/20 albuterol sulfate 90 mcg/actuation 1 inh inhalation QI D PRN shortness 03/28/21 aerosol inhaler of breath or wheezing #8.5 g ronnie azithromycin 250 mg tablet See Rx Instructions PO .COM PLEX #6 03/28/21 tabs codeine 10 mg-guaifenesin 100 mg/5 5 ml PO Q6H PRN col d symptoms #120 03/28/21 mL oral liquid (Guaifenesin AC) mL cyclobenzaprine 10 mg tablet 10 mg PO Q8H PRN Muscle s pasm #14 03/28/21 tabs amoxicillin 875 mg-potassium 1 tab PO BID #14 tabs clavulanate 125 mg tablet prednisone 20 mg tablet 40 mg (2 x 20 mg) PO DAILY 5 days 09/07/21 #10 tabs cyclobenzaprine 10 mg tablet 10 mg PO TID PRN muscle s pasm #14 10/29/21 tabs ondansetron 4 mg disintegrating 4 mg PO Q8H PRN nausea and 10/29/21 tablet vomiting #20 tabs sumatriptan succinate 50 mg tablet 50 mg PO Q2-4H PRN migraine 10/29/21 headache #10 tabs wrciftm-ccsqyldfrqmea-fhfipvng 250 2 tab PO Q6H PRN he adache #30 tabs 03/02/23 mg-250 mg-65 mg tablet (Excedrin Migraine) diphenhydramine HCl 25 mg capsule 50 mg (2 x 25 mg) PO Q6H PRN 03/02/23 headache, nausea, vomiting #20 caps metoclopramide HCl 10 mg tablet 10 mg PO Q6H PRN nause a and 03/02/23 (Reglan) vomiting #14 tabs sumatriptan succinate 50 mg tablet 50 mg PO Q2-4H PRN migraine 03/18/23 headache #10 tabs ibuprofen 600 mg tablet 600 mg PO Q6H PRN pain #30 t abs 04/06/23 nirmatrelvir 300 mg (150 mg See Rx Instructions PO .CO MPLEX 04/06/23 x2)-ritonavir 100 mg tablet,dose #30 ea pack (Paxlovid) ondansetron 4 mg disintegrating 4 mg PO Q8H PRN nausea and 04/06/23 tablet vomiting #20 tabs Allergies Allergy/AdvReac Type Severity Reaction Status Date / Time No Known Allergies Allergy Verified 10/01/24 09:21 Review of Systems 2 Constitutional: Constitutional: Reports no additional constitutional complaints, Denies chills, Denies fever(s) and Denies night sweats Eyes: Eyes: Reports no additional eye complaints, Denies blurry vision, Denies change in vision, Denies diplopia, Denies eye discharge, Denies loss of vision and Denies eye pain ENT: Denies dizziness Cardiovascular: Cardiovascular: Reports no additional cardiovascular complaints, Denies chest pain, Denies lightheadedness, Denies Loss of Consciousness and Denies dyspnea Respiratory: Respiratory: Reports no additional respiratory complaints and Denies dyspnea Gastrointestinal: Gastrointestinal: Reports no additional gastrointestinal complaints, Reports abdominal pain, Denies melena, Denies hematochezia, Denies change in bowel habits, Denies change in stool character, Reports nausea and Reports vomiting Genitourinary: Genitourinary: Reports no additional male genitourinary complaints, Denies hematuria, Denies oliguria, Denies difficulty urinating, Denies dysuria, Denies urinary frequency, Denies urinary hesitancy, Denies urinary incontinence and Denies urinary urgency Musculoskeletal: Musculoskeletal: Reports no additional musculoskeletal complaints, Denies numbness and Denies tingling Neurologic: Denies dizziness, Denies loss of vision, Denies numbness and Denies tingling Psychiatric: Psychiatric: Reports no additional psychiatric complaints Endocrine: Endocrine: Reports no additional endocrine complaints Hematologic/Lymphatic: Hematologic/Lymphatic: Reports no additional hematologic/lymphatic complaints Allergic/Immunologic: Allergic/Immunologic: Reports no additional allergic/immunologic complaints PMFSH Past Medical History Attestation statement: The following information was validated with the patient. Source: old records reviewed and nursing notes reviewed Medical History Migraine Social History Social History Alcohol intake: never Patient Tobacco Use Status: Never used Tobacco Physical Exam ED Vital Signs: Vital Signs - 24 hr 10/01/24 09:19 10/01/24 11:25 10/01/24 12:40 Temperature 96.8 F 98.2 F Pulse Rate 89 72 Respiratory Rate 16 18 18 Blood Pressure 122/69 132/80 Pulse Oximetry 100 96 Oxygen Delivery Method Room Air Room Air BMI result Body Mass Index 31.9 Const General: cooperative, no acute distress, alert and awake Nutritional Appearance: well nourished Orientation/consciousness: patient oriented x3 HENMT Head: Yes normal to inspection and Yes atraumatic Ears: hearing grossly normal bilaterally and external ears normal General nose exam: Normal external nose present, no nasal discharge noted and no epistaxis Face and sinus: Yes normal facial exam, No abrasion and No laceration Mouth: Normal oral and palatal mucosa present, no drooling and no muffled voice Eyes General: appearance normal, both eyes and all related structures Periorbital: periorbital findings normal Eyelids: Yes eyelids normal Conjunctivae: conjunctivae normal Pupils: Equal, round and reactive pupils present EOM: EOMs intact bilaterally Neck Neck: Yes normal visual inspection, Yes full ROM and Yes no lymphadenopathy Resp Effort & Inspection: normal respiratory effort and able to speak in complete sentences GI Palpation (GI): Soft to palpation, not firm, Tenderness to palpation present (GI), no guarding and not rigid Neuro General: patient oriented x3, moves all extremities and CN's II-XI intact bilaterally Cranial nerves: Yes Equal, round and reactive pupils present Cognition (Neuro): normal cognition Extrem General: Yes normal to inspection, Yes full ROM and Yes capillary refill normal Psych Appearance: grossly normal Mental Status: mental status grossly normal Affect: normal affect Attitude: cooperative Thought process: Normal thought process present Thought content: Normal thought content present Insight: Good insight present (Psych) Medications Administered Discontinued Medications Generic Name Dose Route Start Last Admin Trade Name Shirley PRN Reason Stop Dose Admin Sodium Chloride 1,000 mls @ 999 mls/hr 10/01/24 11:00 10/01/24 12:26 Ns IV 10/01/24 12:00 Infused .Q1H1M TOM Infusion Iohexol 100 ml 10/01/24 11:11 10/01/24 11:11 Iohexol 350 Mg/Ml 100 Ml Infus..Btl IV 10/01/24 11:12 85 ml ONCE ONE Administration Morphine Sulfate 4 mg 10/01/24 10:53 10/01/24 11:25 Morphine Sulfate 4 Mg/Ml Cartridge IVPUSH 10/01/24 10:54 4 mg ONCE ONE Administration Protocol Ondansetron HCl 4 mg 10/01/24 10:53 10/01/24 11:25 Ondansetron Hcl 4 Mg/2 Ml Vial IVPUSH 10/01/24 10:54 4 mg ONCE ONE Administration Medical Decision Making Medical Decision Making [facility] Narrative: Patient is a 43 year old assigned male at with a history of migraines presenting to the emergency department today with abdominal pain, nausea, and vomiting. Patient's physical exam was as noted in the physical exam portion of this note. Patient's blood work was unremarkable. Patient's urine showed no acute process. Patient's CT abd/pelvis showed no acute process but did show an incidental finding of an 11mm bony exostosis projecting anteromedially from the anterior wall of the right acetabulum. Patient's clinical presentation is most consistent with a gastroenteritis. I explained my physical exam findings as well as all test results to the patient. I answered all questions asked by the patient. Patient received IV Morphine, IV Zofran, and IV fluids which, upon re- evaluation, she stated it helped his symptoms significantly. I stressed the importance of the patient taking his medication as directed (either prescribed or as the over the counter packaging recommends). I stressed the importance of the patient following up with his primary care provider. I stressed the importance of the patient returning to the emergency department immediately if his symptoms were to worsen or if he were to develop any dizziness, shortness of breath, difficulty breathing, chest pain, blurry vision, loss of vision, nausea, vomiting, abdominal pain, fever, chills, back pain, or any other complaints. Patient verbalized agreement and understanding with this treatment plan and discharge. Differential Diagnosis Differential Diagnoses: The differential diagnosis associated with the presentation includes Gastroenteritis Appendicitis Abdominal pain Nausea Vomiting Admission/Observation Consideration of admission/observation: Escalation of care including admission/observation considered Patient would have been admitted to the hospital had his work up had any findings where hospital admission was appropriate and his clinical presentation warranted hospital admission. Lab Data [facility] Lab Attestation statement: I reviewed the patient's lab results. My interpretation of these results are in the [facility] Rationale portion of this note. 10/01/24 09:30 10/01/24 09:30 Labs: Lab Results 10/01/24 10/01/24 Range/Units 09:30 11:58 WBC 6.4 (4.8-10.8) X10*3/uL RBC 5.42 (4.60-5.80) X10*6/uL Hgb 14.8 (14.0-18.0) g/dl Hct 44.4 (42.0-52.0) % MCV 81.9 (80.0-98.0) fL MCH 27.3 (27.0-33.0) pg MCHC 33.3 (31.0-36.0) g/dl RDW 13.7 (11.0-16.0) % Plt Count 227 (160-400) X10*3/uL MPV 9.2 L (9.4-12.4) fL Immature Gran % (Auto) 0.3 (0.0-0.4) % Neut % (Auto) 54.4 (45-73) % Lymph % (Auto) 35.4 (20-40) % [place] % (Auto) 5.5 (2-11) % Eos % (Auto) 3.6 (0-4) % Baso % (Auto) 0.8 (0-2) % Lymph # (Auto) 2.3 (1.2-4.9) X10*3/uL [place] # (Auto) 0.4 (0.1-1.2) X10*3/uL Eos # (Auto) 0.2 (0.0-0.4) X10*3/uL Baso # (Auto) 0.1 (0.0-0.2) X10*3/uL Abs Immat Gran (auto) 0.02 (0.00-0.03) X10*3/uL Absolute Neuts (auto) 3.5 (2.0-8.3) x10*3/uL Absolute Nucleated RBC 0.000 (0.0-0.012) X10*3/uL Nucleated RBC % (auto) 0.0 (0.0-0.2) /100WBC Sodium 142 (135-145) mmol/L Potassium 4.1 (3.3-5.1) mmol/L Chloride 107 (96-108) mmol/L Carbon Dioxide 26 (22-29) mmol/L Anion Gap 13 (12-20) BUN 16 (9-16) mg/dL Creatinine 1.06 (0.5-1.4) mg/dL Estim Creat Clear Calc 115.7 Estimated GFR > 60 Random Glucose 134 H (60-115) mg/dL Calcium 9.2 (8.4-10.2) mg/dL Total Bilirubin 1.1 H (0.0-1.0) mg/dL AST 22 (5-37) U/L ALT 26 (0-40) U/L Alkaline Phosphatase 49 (39-117) U/L Total Protein 6.9 (6.5-8.0) g/dL Albumin 4.3 (3.5-5.0) g/dL Lipase 24 (8-78) U/L Urine Color Yellow Urine Appearance Clear Urine pH 7.5 (5.0-9.0) Ur Specific [place] >= 1.030 H (1.005-1.025) Urine Protein Negative (Neg-Trace) mg/dL Urine Glucose (UA) Negative (Negative) mg/dL Urine Ketones Negative (Negative) mg/dL Urine Blood Negative (Negative) Urine Nitrite Negative (Negative) Ur Leukocyte Esterase Negative (Negative) Influenza Type A (PCR) NEGATIVE (Negative) Influenza Type B (PCR) NEGATIVE (Negative) RSV RNA Qual (PCR) NEGATIVE (Negative) SARS-CoV-2 RNA (RT-PCR) NEGATIVE (Negative) Independent Interpretation I performed an independent interpretation of an: CT Scan Interpretation: My interpretation is in agreement with the radiologist's impression of this imaging study. L Report Number: [id number]: Total DLP = 880.00 mGy-cm EXAMINATION: CT ABDOMEN AND PELVIS WITH CONTRAST CLINICAL INFORMATION: Abdominal pain DLP: 880 mGY*cm COMPARISON: October 01, 2024 TECHNIQUE: Multidetector volumetric images were obtained from the superior aspect of the liver through the pubic symphysis following administration 85 mL of Omnipaque 350 intravenous contrast. Sagittal and coronal reformatted images were obtained on the technologist's workstation. Oral contrast: No This CT examination was performed using dose optimization techniques as appropriate, variously including the following: *Automated exposure control *Adjustment of mA and/or kV according to patient size (this includes techniques or standardized protocols for targeted exams where dose is matched to indication/reason for exam; i.e. extremities or head) *Use of iterative reconstruction technique FINDINGS: LUNG BASES: The visualized lung bases are unremarkable. LIVER, GALLBLADDER, AND BILIARY TREE: Mild geographic fatty changes are evident in the liver, somewhat sparing the left hepatic and caudate lobes. The gallbladder is unremarkable with no evidence of radiopaque gallstones, gallbladder wall thickening, or obvious pericholecystic inflammatory changes. PANCREAS: Unremarkable. SPLEEN: Unremarkable. ADRENAL GLANDS: Unremarkable. KIDNEYS AND URETERS: The kidneys are normal in size, shape, and attenuation. No hydronephrosis, hydroureter, or calculi seen. No perinephric stranding. BLADDER: Unremarkable. GASTROINTESTINAL TRACT: The small and large bowel are unremarkable. The appendix is unremarkable. ABDOMINAL WALL: Small supraumbilical hernia contains adipose tissue, unchanged. LYMPH NODES: Normal. VASCULAR: Unremarkable. PELVIC VISCERA: Unremarkable. OSSEOUS STRUCTURES: There is an 11 mm bony exostosis projecting anteromedially from the anterior wall of the right acetabulum, unchanged since the prior. Could represent a small pedunculated osteochondroma. There is small degenerative cyst in the left acetabular roof CT/CT abdomen pelvis w IV con IMPRESSION: No acute abnormality. No interval change since the prior. 11 mm bony exostosis projecting anteromedially from the anterior wall of the right acetabulum is likely of no clinical consequence. Fleischner guidelines were followed. Electronically signed by: Dexter Ames MD 10/01/2024 11:42 AM EDT RP Dictated By: Dexter Ames MD Signed By: Electronically signed by Dexter Ames MD 10/01/24 1142 Radiology Impression Discussion of test interpretation with radiology: I have reviewed the radiologist's reading. Critical Care Time Critical Care Time Critical Care Time: Yes Total Critical Care Time: 32 Attestation: I spent 32 minutes of Critical Care Time with this patient. This does not include time spent on separately reported billable procedures. Discharge Plan Discharge Clinical Impression: Gastroenteritis, Bony exostosis Abdominal pain Qualifiers: Abdominal location: generalized Qualified Code(s): R10.84 - Generalized abdominal pain Patient Disposition: Home, Self-Care Instructions: Gastroenteritis (DC), Abdominal Pain (ED) Additional Instructions: Your work up today was unremarkable for any emergent process for your symptoms. Your CT scan of the abdomen/pelvis did show an incidental (accidental and unrelated) finding of an 11mm bony exostosis of the right acetabulum. This is not causing your symptoms however, given it was remarked about by the radiologist in the report - I am informing you. Hilton evaluaci?n de hoy no revel? ninguna emergencia relacionada con yuliya s?ntomas. Hilton tomograf?a computarizada de abdomen y pelvis mostr? un hallazgo incidental (accidental y no relacionado) de laura exostosis ?sea de 11 mm en el acet?bulo derecho. Sin embargo, esto no es la causa de yuliya s?ntomas, dado que el radi?logo lo mencion? en el informe. Le informo. Follow up with your primary care provider. Return to the emergency department immediately if your symptoms worsen or if you develop any dizziness, shortness of breath, difficulty breathing, chest pain, blurry vision, loss of vision, nausea, vomiting, abdominal pain, fever, chills, back pain, or any other complaints. Jhon?seguimiento?con hilton m?dico de atenci?n primaria. Acuda inmediatamente al servicio de urgencias si yuliya s?ntomas empeoran o si presenta falta de aliento, dificultad para respirar, dolor tor?cico, mareos, aturdimiento, dolor de espalda, dolor abdominal, fiebre, escalofr?os o cualquier otro s?ntoma. Please see the information below about our Patient Portal. If you are not yet enrolled in the [facility] Patient Portal, you will receive an enrollment email invitation following your visit to any [facility] setting. You may also self-enroll in the Patient Portal by visiting our website: [email or web address] The following information is required to access the Patient Portal: - Your [facility] Medical Record Number - Your personal home email address (must match what is in your electronic medical record, Registration staff can assist with this) - Name - Date of Capabilities of the Patient Portal: - Message some providers - View upcoming appointments - Access your health summary, medical history, and visit history - View current conditions and allergies - View procedure and lab results - View your medications, including guidelines, side effects, and precautions - Complete pre-appointment questionnaires requested by your provider - Ready summary reports of your office visits and procedures To access the Patient Portal Mobile Roberto, follow these directions: - Search [employer] in the Roberto Store or [employer] Store - Download the Roberto - Search for [facility] - Enter your login/password Portal del paciente Si usted no esta inscrito en el portal de pacientes de [facility] y [facility], recibira laura invitacion de inscripcion despues de hilton visita al [facility] o al [facility] via correo electronico. Tambien puede inscribirse voluntariamente en el portal de pacientes visitando nuestra pagina web: [email or web address] La siguiente informacion sera requerida para acceder al portal: - Hilton jeannette de historia medica de [facility] - Hilton direccion de correo electronico personal - Nombre - Fecha de nacimiento Capacidades: Las siguientes capacidades estan disponibles en el portal de pacientes: - Enviar mensajes a algunos doctores - Verificar proximas citas - Acceso a hilton historial de jerry, registro medico e historial de visitas - Jen las condiciones actuales y alergias jen procedimientos y resultados del laboratorio - Jen yuliya medicamentos, incluyendo las pautas - Efectos secundarios y precauciones - Completar o llenar formularios / cuestionarios de - Citas solicitadas por hilton doctor - Leer los resumenes de reportes medicos de yuliya visitas y procedimientos [employer] acceder a la aplicacion movil: - [employer] en la Roberto Store o [employer]odia Store - Descargue la aplicacion - [facility] - Ingrese hilton nombre de usuario / Contrasena Prescriptions: No Action omeprazole 40 mg capsule,delayed release(DR/EC) 40 mg PO DAILY Qty: 30 0RF sucralfate 1 gram tablet 1 g PO TID Qty: 90 0RF prednisone 20 mg tablet 40 mg PO DAILY 5 Days Qty: 10 0RF amoxicillin-pot clavulanate 875-125 mg tablet 1 tab PO BID Qty: 14 0RF cyclobenzaprine 10 mg tablet 10 mg PO Q8H PRN (Reason: Muscle spasm) Qty: 14 0RF azithromycin 250 mg tablet See Rx Instructions .ROUTE .COMPLEX Qty: 6 0RF Rx Instructions: take 500 mg today (day 1), then 250 mg for 4 days (days 2-5) codeine-guaifenesin [Guaifenesin AC] 10-100 mg/5 mL liquid 5 ml PO Q6H PRN (Reason: cold symptoms) Qty: 120 0RF albuterol sulfate 90 mcg/actuation HFA aerosol inhaler 1 inh inhalation QID PRN (Reason: shortness of breath or wheezing) Qty: 8.5 0RF sumatriptan succinate 50 mg tablet 50 mg PO Q2-4H PRN (Reason: migraine headache) Qty: 10 0RF Rx Instructions: do not exceed 4 doses per 24 hrs cyclobenzaprine 10 mg tablet 10 mg PO TID PRN (Reason: muscle spasm) Qty: 14 0RF ondansetron 4 mg tablet,disintegrating 4 mg PO Q8H PRN (Reason: nausea and vomiting) Qty: 20 0RF metoclopramide HCl [Reglan] 10 mg tablet 10 mg PO Q6H PRN (Reason: nausea and vomiting) Qty: 14 0RF diphenhydramine HCl 25 mg capsule 50 mg PO Q6H PRN (Reason: headache, nausea, vomiting) Qty: 20 0RF Excedrin Migraine 250-250-65 mg tablet 2 tab PO Q6H PRN (Reason: headache) Qty: 30 0RF ibuprofen 600 mg tablet 600 mg PO Q6H PRN (Reason: pain) Qty: 30 0RF ondansetron 4 mg tablet,disintegrating 4 mg PO Q8H PRN (Reason: nausea and vomiting) Qty: 20 0RF Paxlovid 300 mg (150 mg x 2)-100 mg tablets,dose pack See Rx Instructions .ROUTE .COMPLEX Qty: 30 0RF Rx Instructions: take TWO 150 mg tablets of nirmatrelvir with ONE 100 mg tablet of ritonavir twice daily for 5 days sumatriptan succinate 50 mg tablet 50 mg PO Q2-4H PRN (Reason: migraine headache) Qty: 10 0RF Rx Instructions: do not exceed 4 doses per 24 hrs Referrals: Merissa Arias MD [Primary Care Provider, Internal Medicine] Stand Alone Forms: Work/School Release Interventions: ED Discharge Assessment Last Done: 10/01/24 12:40 Discharge Date/Time: 10/01/24 12:40 Print Language: Telugu
[2024-10-01] MEDS: iohexoL 350 MG/ML 100 ML INFUS..BTL IV (11:11)
[2024-10-01 11:25] VITALS: RESP 18
--- OUTSIDE RECORDS SUMMARY | 2024-10-01 11:53 | XMS_ITS | Encounter Summary ---
Author Organization [employer] Address [address] [place] [address] Care Team Providers Care Manager Developmental Name Role Phone Merissa Arias MD Primary Care Provider + Encounter Details Date Type Department Care Team (Latest Contact Info) Description 09/13/2018 Abstract [facility] CONVERSIONS Dental, Provider, DDS Social History Tobacco [...] Care Team (Late st Contact Info) Description 11/23/2024 10:45 AM EDT Office Visit [facility] MEDICINE [address] [place] [address] Merissa Arias MD [address] [place] [address] 11/23/2024 1:00 PM EDT Office Visit [facility] OPTOMETRY [address] [place] [address] Gabriela Rizo OD [address] [place] [address] documented as of this encounter Visit Diagnoses Not on filedocumented in this encounter Care Teams Manager Developmental Relationship Specialty Start Date End Date Merissa Arias MD [address] [place] [address] PCP - General Family Medicine 08/31/16 documented as of this encounter
[2024-10-01 12:08] LABS: Appearance Urine Clear; Glucose Urine UA Negative (Negative); PH 7.5 (5.0-9.0); Specific Gravity - Urine >= 1.030 (1.005-1.025)
[2024-10-01 12:40] VITALS: BP 132/80; PULSE 72; RESP 18; TEMP 36.8; O2SAT 96
== END 2024-10-01 12:40 | disposition home or self-care (01) ==
PROVIDERS: Emergency Provider Emergency Medicine; PCP Internal Medicine
DX: M89.8X8 Other specified disorders of bone, other site (principal); K52.9 Noninfective gastroenteritis and colitis, unspecified; R10.9 Unspecified abdominal pain; R11.2 Nausea with vomiting, unspecified
CPT/HCPCS: 74177; 80053; 81003; 83690; 85025; 87637; 96361; 96374; 96375; 99284; 99291; J2270; J2405; Q9967

== ENCOUNTER → 2024-10-01 10:53 | Outpatient (BNV) | payer OTHER, SELFPAY | PROVIDERS: Emergency Provider Emergency Medicine; PCP Internal Medicine; Visit Provider Radiology Diagnostic Radiology | DX: R10.9 Unspecified abdominal pain (principal) | CPT/HCPCS: 74177 ==

== ENCOUNTER 2025-01-25 10:09 | Outpatient (REF) | payer OTHER, SELFPAY ==
--- NOTE | ~2025-01-25 | XR_ITS ---
EXAMINATION: XR CERVICAL SPINE 2-3 VIEWS HISTORY: neck pain/MACK COMPARISON: There are no prior studies available for comparison. FINDINGS: AP, lateral, and open-mouth odontoid views of the cervical spine are submitted. Osseous mineralization is normal. Seven cervical vertebral bodies are identified maintaining normal height and alignment without evidence of fracture or subluxation. There is mild degenerative disc disease at the C4-5 level with disc space narrowing and osteophyte formation. The remaining intervertebral disc spaces are maintained. The odontoid and lateral masses of C1 are intact. There is no prevertebral soft tissue swelling. XR/XR cervical spine 3V IMPRESSION: Mild degenerative disc disease at the C4-5 level as described. Electronically signed by: Jason Quesada MD 01/25/2025 10:40 AM [facility]
--- OUTSIDE RECORDS SUMMARY | 2025-01-25 09:15 | XMS_ITS | Encounter Summary ---
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 And Servicer Name Role Phone Merissa Arias MD Primary Care Provider + Encounter Details Date Type Department Care Team ([facility] st Contact Info) Description 01/25/2025 9:15 AM EST Office Visit [facility] [address], [place] [phone] Merissa Arias MD [address] [place], [place] [phone] Neck pain (Primary Dx); Prediabetes; Cervicogenic headache; Preventative health care; Encounter for immunization; Screen for STD (sexually transmitted disease) Social History Tobacco Use Types Packs/Day Years Used Date Smoking Tobacco: Never Passive Smoke Exposure: Never Smokeless Tobacco: Never Alcohol Use Standard Drinks/Week Comments Yes 0 (1 standard drink = 0.6 oz pur e alcohol) oca Depression Answer Date Recorded Patient Health Questionnaire-9 Score 13 01/25/2025 Patient Health Questionnaire-9 Score 13 01/25/2025 Last PHQ-9: Questionnaire Data Not on file 1 03/27/2024 Housing Stability Answer Date Recorded What is your housing situation today? I have karl gabriel 01/18/[address] you li ve. Do you have problems with any of the following? None of the above 01/18/2025 Food Insecurity Answer Date Recorded Within the past 12 months, y ou worried that your food would run out before you got money to buy more: Never True 01/18/2025 Within the past 12 months,th e food you bought just didn't last and you didn't have enough money to get more: Never True Transportation Answer Date Recorded In the past 12 months, has l ack of transportation kept you from medical appts, meetings, work or from getting things needed for daily living? No 01/18/2025 Utilities Answer Date Recorded In the past 12 months, has t he electric, gas, oil or water company threatened to shut off services in your home? No 01/18/2025 Depression Answer Date Recorded Patient Health Questionnaire-2 Score 4 01/25/2025 Internet Access Answer Date Recorded Internet Access Q1 Yes 01/18/2025 Internet Access Q2 Not on file 01/18/2025 Sex and Gender Information Value Date Recorded Sex Assigned at Male 01/18/2022 10:21 AM EDT Legal Sex Male 10:21 AM EDT Gender Identity Male 01/18/2022 10:21 AM EDT Sexual Orientation Straight 01/18/2022 10 :21 AM EDT documented as of this encounter Last Filed Vital Signs Vital Sign Reading Time Taken Comments Blood Pressure 110/58 01/25/2025 9:24 AM EST Pulse 64 01/25/2025 9:24 AM EST Temperature 37.1 C (98.7 F) 01/25/2025 9:24 AM EST Respiratory Rate 18 01/25/2025 9:24 AM EST Oxygen Saturation 96% 01/25/2025 9:24 AM EST Inhaled Oxygen Concentration - - Weight 119 kg (263 lb 3.2 oz) 01/25/2025 9:24 AM EST Height 185.4 cm (6' 1 ) 01/25/2025 9:24 AM EST Body Mass Index 34.73 01/25/2025 9:24 AM EST documented in this encounter Functional Status * Over the past 2 weeks, how often have you been bothered by any of the following problems? Question Answer Date of Assessment Author Patient Health Questionnaire-2 Score 4 09/2024 9:29 AM EST Carey Agudelo MA * Little interest or pleasure in doing things Answer Date of Assessment Author Nearly every day 01/25/2025 9:29 AM EST Carey Agudelo MA * Feeling down, depressed, or hopeless Answer Date of Assessment Author Several days 01/25/2025 9:29 AM EST Carey Agudelo MA * Trouble falling or staying asleep, or sleeping too much Answer Date of Assessment Author Nearly every day 01/25/2025 9:29 AM Carey Boswell MA * Feeling tired or having little energy Answer Date of Assessment Author More than half the days 01/25/2025 9:29 AM Carey Aragon MA * Poor appetite or overeating Answer Date of Assessment Author Nearly every day 01/25/2025 9:29 AM Carey Boswell MA * Feeling bad about yourself - or that you are a failure or have let yourself or your family down Answer Date of Assessment Author Not at all 01/25/2025 9:29 AM Carey Boswell MA * Trouble concentrating on things, such as reading the newspaper or watching television Answer Date of Assessment Author Several days 01/25/2025 9:29 AM Carey Boswell MA * Moving or speaking so slowly that other people could have noticed? Or the opposite - being so fidgety or restless that you have been moving around a lot more than usual. Answer Date of Assessment Author Not at all 01/25/2025 9:29 AM Carey Boswell MA * Thoughts that you would be better off or hurting yourself in some way Answer Date of Assessment Author Not at all 01/25/2025 9:29 AM Carey Boswell MA * Patient Health Questionnaire-9 Score Answer Date of Assessment Author 13 01/25/2025 9:29 AM Carey Boswell MA * Over the last 2 weeks, how often have you been bothered by any of the following problems? Question Answer Date of Assessment Author Feeling nervous, anxious, or on edge 0 09/2024 9:27 AM Carey Boswell MA Not being able to stop or co ntrol worrying 0 01/25/2025 9:27 AM Carey Boswell M A Worrying too much about diff erent things 0 01/25/2025 9:27 AM Carey Boswell M A Trouble relaxing 0 01/25/2025 9:27 AM Carey Aragon MA Being so restless that it is hard to sit still 0 01/25/2025 9:27 AM Carey Boswell M A Becoming easily annoyed or irritable 0 09/2024 9:27 AM VICKIE Agudelo Carey KWASI Feeling afraid as if somethi ng awful might happen 0 01/25/2025 9:27 AM Carey Boswell Edwardo A GARY-7 Total Score 0 01/25/2025 9:27 AM Carey BoswellKWASI documented as of this encounter Plan of Treatment Upcoming Encounters Date Type Department Care Team (Late st Contact Info) Description 04/05/2025 9:00 AM EST Office Visit [facility] [address] [place] [address] Gabriela Rizo, OD [address] [place] [address] 04/12/2025 9:00 AM EST Office Visit [facility] [address] [place] [address] Merissa Arias MD [address] [place] [address] Scheduled Orders Name Type Priority Associated Diagnoses Orde r Schedule Comprehensive Metabolic Panel Lab Routine Prediabetes Expected: 01/25/2025 (Approximate), Expires: 01/25/2026 Lipid Panel with Reflex to Direct LDL Lab Routine Prediabetes Expected: 01/25/2025 (Approximate), Expires: 01/25/2026 HIV-1/2 Antigen and Antibodies, Fourth Generation, with Reflexes Lab Routine Screen for STD (sexually transmitted disease) Expected: 01/25/2025 (Approximate), Expires: 01/25/2026 Hepatitis Panel, General Lab Routine Screen for STD (sexually transmitted disease) Expected: 01/25/2025 (Approximate), Expires: 01/25/2026 Syphilis Screen Lab Routine Cervicogenic headache Screen for STD (sexually transmitted disease) Expected: 01/25/2025 (Approximate), Expires: 01/25/2026 TSH with Reflex to Free T4 Lab Routine Prediabetes Expected: 01/25/2025 (Approximate), Expires: 01/25/2026 Vitamin D, 25-Hydroxy, Total, Immunoassay Lab Routine Neck pain Expected: 01/25/2025 (Approximate), Expires: 01/25/2026 Lyme Disease Ab with Reflex to Blot (IgG, IgM) Lab Routine Cervicogenic headache Expected: 01/25/2025, Expires: 01/25/2026 documented as of this encounter Procedures Procedure Name Priority Date/Time Associated Diagnosis Comments XR CERVICAL SPINE 3V Routine 01/25/2025 10:35 AM EST Neck pain Cervicogenic headache CBC WITH AUTO DIFFERENTIAL Routine 01/25/2025 10:15 AM EST Cervicogenic headache POCT GLYCATED HEMOGLOBIN, TOTAL Routine 01/25/2025 9:34 AM EST Prediabetes POCT GLUCOSE Routine 01/25/2025 9:27 AM EST Prediabetes documented in this encounter Results * XR CERVICAL SPINE 3V (01/25/2025 10:35 AM EST) Anatomical Region Laterality Modality Abdomen Radiographic Dayanara ging 01/25/2025 10:3 5 AM EST Narrative 01/25/2025 10:43 AM EST [address] [address] XRay Report Signed Patient: Kayode Rodriguez MR#: [id number] : 1980 Acct:[id number] Age/Sex: 44 / M ADM Date: 01/25/25 Loc: HO.HHCX Attending Dr: Merissa Arias MD Ordering Physician: Merissa Arias MD Date of Service: 01/25/25 Procedure(s): XR cervical spine 3V Accession Number(s): [id number] cc: Merissa Arias MD Reason for Exam: neck pain/MACK EXAMINATION: XR CERVICAL SPINE 2-3 VIEWS HISTORY: neck pain/MACK COMPARISON: There are no prior studies available for comparison. FINDINGS: AP, lateral, and open-mouth odontoid views of the cervical spine are submitted. Osseous mineralization is normal. Seven cervical vertebral bodies are identified maintaining normal height and alignment without evidence of fracture or subluxation. There is mild degenerative disc disease at the C4-5 level with disc space narrowing and osteophyte formation. The remaining intervertebral disc spaces are maintained. The odontoid and lateral masses of C1 are intact. There is no prevertebral soft tissue swelling. XR/XR cervical spine 3V IMPRESSION: Mild degenerative disc disease at the C4-5 level as described. Electronically signed by: Jason Quesada MD 01/25/2025 10:40 AM EST RP Dictated By: Jason Quesada MD Signed By: <Electronically signed by Jason Quesada MD in OV> 01/25/25 1040 DD/ 1035 TD/TT: 01/25/25 1037 Contract Lead: Procedure Note Donotuseinterpreter, Image - 01/25/[address] [address] XRay Report Signed Patient: Argelia Rodriguez#: [id number] : 1980Acct:[id number] Age/Sex: 44 / MADM Date: 01/25/25 Loc: HO.HHCX Attending Dr: Merissa Arias MD Ordering Physician: Merissa Arias MD Date of Service: 01/25/25 Procedure(s): XR cervical spine 3V Accession Number(s): [id number] cc: Merissa Arias MD Reason for Exam: neck pain/MACK EXAMINATION: XR CERVICAL SPINE 2-3 VIEWS HISTORY: neck pain/MACK COMPARISON: There are no prior studies available for comparison. FINDINGS: AP, lateral, and open-mouth odontoid views of the cervical spine are submitted. Osseous mineralization is normal. Seven cervical vertebral bodies are identified maintaining normal height and alignment without evidence of fracture or subluxation. There is mild degenerative disc disease at the C4-5 level with disc space narrowing and osteophyte formation. The remaining intervertebral disc spaces are maintained. The odontoid and lateral masses of C1 are intact. There is no prevertebral soft tissue swelling. XR/XR cervical spine 3V IMPRESSION: Mild degenerative disc disease at the C4-5 level as described. Electronically signed by: Jason Quesada MD 01/25/2025 10:40 AM EST RP Dictated By: Jason Quesada MD Signed By: <Electronically signed by Jason Quesada MD in OV> 01/25/25 1040 DD/ 1035 TD/TT: 01/25/25 1037 Contract Lead: us Merissa Arias MD IMG XR PROCEDURES Final Result * (ABNORMAL) CBC auto differential (01/25/2025 10:15 AM EST) White Blood Count 5.2 4.8 - 10.8 X10*3/uL [facility] Red Blood Count 5.43 4.60 - 5.80 X10*6/uL [facility] Hemoglobin 14.6 14.0 - 18.0 g/dl [facility] Hematocrit 45.4 42.0 - 52.0 % [facility] Mean Corpuscular Volume 83.6 80.0 - 98.0 fL [facility] Mean Corpuscular Hemoglobin 26.9(L) 27.0 - 33.0 pg [facility] Mean Corpuscular HGB Conc 32.2 31.0 - 36.0 g/dl [facility] Red Cell Distribution Width 13.5 11.0 - 16.0 % [facility] Platelet Count 260 160 - 400 X10*3/uL [facility] Mean Platelet Volume 9.9 9.4 - 12.4 fL [facility] Neutrophils Percent Auto 55.0 45 - 73 % [facility] Imm Gran Pct Auto 0.2 0.0 - 0.4 % [facility] Lymphocytes Percent Auto 32.6 20 - 40 % [facility] Monocytes Percent Auto 8.9 2 - 11 % [facility] Eosinophils Percent Auto 2.5 0 - 4 % [facility] Basophils Percent Auto 0.8 0 - 2 % [facility] NRBC Pct Auto 0.0 0.0 - 0.2 /100WBC [facility] Neutrophils Absolute Auto 2.8 2.0 - 8.3 x10*3/uL [facility] Imm Gran Abs Auto 0.01 0.00 - 0.03 X10*3/uL [facility] Lymphocytes Absolute Auto 1.7 1.2 - 4.9 X10*3/uL [facility] Monocytes Absolute Auto 0.5 0.1 - 1.2 X10*3/uL [facility] Eosinophils Absolute Auto 0.1 0.0 - 0.4 X10*3/uL [facility] Basophils Absolute Auto 0.0 0.0 - 0.2 X10*3/uL [facility] NRBC Abs Auto 0.000 0.0 - 0.012 X10*3/uL [facility] Blood Venous blood specimen / Unknown 01/25/2025 10:15 AM EST 01/25/2025 11:17 AM EST Merissa Arias MD LAB BLOOD ORDERABLES Fin al Result Performing Organization Address City/State/[facility] Co de Phone Number [facility] [address] [place] [phone] * (ABNORMAL) POCT Hgb A1c (01/25/2025 9:34 AM EST) Hemoglobin A1C 5.9(A) 4.0 - 5.7 % QC Media Lot # [id number] Lot# Expiration Date 740, Blood 01/25/2025 9:34 AM EST Merissa Arias MD POINT OF CARE TEST ENTER /EDIT ORDERABLES Final Result * POCT Glucose (01/25/2025 9:27 AM EST) Glucose Blood, POC 121 60 - 200 mg/dL QC Media Lot # [id number] Lot# Expiration Date 3,026 Blood Capillary blood specimen / Unknown 01/25/2025 9:27 AM EST Merissa Arias MD POINT OF CARE TEST ENTER /EDIT ORDERABLES Final Result documented in this encounter Visit Diagnoses Diagnosis Neck pain- Primary Cervicalgia Prediabetes Other abnormal glucose Cervicogenic headache Headache Preventative health care Routine general medical examination at a health care facility Encounter for immunization Screen for STD (sexually transmitted disease) Screening examination for venereal disease documented in this encounter Additional Health Concerns Assessment Noted Time PHQ-9 Depression Total Score: 13 01/25/ 025 9:29 AM EST documented as of this encounter Care Teams [employer] Relationship Specialty Start Date End Date Merissa Arias MD [address] [place] [phone] PCP - General Family Medicine 08/31/16 documented as of this encounter
[2025-01-25 11:23] LABS: MANUAL DIFF FLAG NO
[2025-01-25 11:39] LABS: Hematocrit 45.4 % (42.0-52.0); Hemoglobin 14.6 g/dl (14.0-18.0); Imm Gran Abs Auto 0.01 X10*3/uL (0.00-0.03); Imm Gran Pct Auto 0.2 % (0.0-0.4); Lymphocytes Absolute Auto 1.7 X10*3/uL (1.2-4.9); Mean Corpuscular HGB Conc 32.2 g/dl (31.0-36.0); Mean Corpuscular Hemoglobin 26.9 pg (27.0-33.0); Mean Corpuscular Volume 83.6 fL (80.0-98.0); NRBC Abs Auto 0.000 X10*3/uL (0.0-0.012); NRBC Pct Auto 0.0 /100WBC (0.0-0.2); Platelet Count 260 X10*3/uL (160-400); Red Blood Count 5.43 X10*6/uL (4.60-5.80); White Blood Count 5.2 X10*3/uL (4.8-10.8)
--- OUTSIDE RECORDS SUMMARY | 2025-01-25 11:59 | XMS_ITS | Clinical Summary ---
Author Organization [employer] Address [address] [facility] 7t [place] [address] Care Team Providers Care Maple Products Supervisor Name Role Phone Merissa Arias MD Primary [...] 30 patch 2 07/18/19 25 026 Active ibuprofen 400 MG tablet Take 1 [...] bedtime prn pain 30 tablet 07/18/19 25 Active cyclobenzaprine (Flexeril) 10 MG tablet Take 1 tablet (10 mg) by mouth at bedtime for 10 days. 10 tablet 01/26/20 25 025 Active amitriptyline (Elavil) 10 MG tablet Take 1 tablet (10 mg) by mouth at bedtime. 30 tablet 01/26/20 25 025 Active acetaminophen (Tylenol) 500 MG tablet Take 1 tablet (500 mg) by mouth every 8 (eight) hours if needed for moderate pain. 90 tablet 01/26/20 25 Active acetaminophen (Tylenol) 500 MG tablet Take 1 tablet (500 mg) by mouth every 8 (eight) hours if needed for moderate pain. 30 tablet 07/18/19 25 025 Discontinued(R eorder (will not trigger notification to Pharmacy)) Active Problems Problem Noted Date Diagnosed Date Neck pain 01/25/2025 Cervicogenic headache 01/25/2025 Prediabetes 06/20/2023 Assessment & Plan (06/20/2023 10:45 [...] Encounters Date Type Department Care Team Description 01/25/2025 9:15 AM EST Office Visit [facility] [address] [place] [phone] Merissa Arias MD Neck pain (Primary Dx); Prediabetes; Cervicogenic headache; Preventative health care; Encounter for immunization; Screen for STD (sexually transmitted disease) 01/25/2025 Travel 01/24/2025 Telephone [facility] [address] [place] [phone] Merissa Arias MD chart prep 01/18/2025 Patient Outreach [facility] [address] [place] [address] Merissa Arias MD Pre-visit Planning (SDOH negative, Tobacco screening negative. ) 11/22/2024 Telephone [facility] [address] [place] [address] Merissa Arias MD Chart Prep 11/14/2024 Patient Outreach [facility] [address] [place], [place] [phone] Merissa Arias MD Pre-visit Planning ((Unable to reach for PVP screening, LVM) to be completed in office ) from Last 3 Months Immunizations Immunization Administration Dates Next Due Hep B, adult 03/18/2021,06/26/2018 Influenza injectable quadriv alent IIV4 with preservative 05/29/2019,12/22/2017,02/22/2017 Influenza injectable quadriv alent preservative free 03/18/2021 Influenza, Split (incl. artem fied surface antigen) 01/09/2013 Influenza, seasonal, injecta ble, preservative free 01/25/2025 Pfizer Covid-19 Vaccine 12+ Bivalent 04/12/2022 Tdap 09/02/2021,01/09/2013,12/23/2010 Family History Medical History Relation Name Comments Hypertension Maternal Grandmother Relation Name Status Comments Maternal Grandmother Social History Tobacco Use Types Packs/Day Years Used Date Smoking Tobacco: Never Passive Smoke Exposure: Never Smokeless Tobacco: Never Tobacco Cessation:Counseling Given: Not Answered Alcohol Use Standard Drinks/Week Comments Yes 0 [...] Mass Index 34.73 01/25/2025 9:24 AM EST Plan of Treatment Upcoming Encounters Date Type Department Care Team (Late st Contact Info) Description 04/05/2025 9:00 AM EST Office Visit [facility] [address] [place] [address] Darrius, Gabriela, OD [address] [place] [address] 04/12/2025 9:00 AM EST Office Visit [facility] [address] [place] [address] Merissa Arias MD [address] [place] [address] Health Maintenance Due Date Last Done Comments Dental Prophylaxis 1980 HIV Screening 1980 Lipid Panel 1980 Disability Screening 1980 Family Planning (PISQ) 1997 HPV Vaccines (1 - Male 3-dose series) 1997 Hepatitis C Screening 2000 Hepatitis B Vaccines (3 of 3 - 19+ 3-dose series) 05/13/2021 03/18/2021, 06/26/2018 Dental Oral Exam 10/21/2022 04/22/2022 Dental X-Ray: Bitewings 04/23/2023 04/22/2022 COVID-19 Vaccine ( season) 2024 04/12/2022, 05/05/2021, 09/09/2020, Additional history exists Dental X-Ray: Full Mouth 04/23/2025 04/22/2022 Depression Monitoring 07/25/2025 01/25/2025, 025 Alcohol/Substance Use Screening 01/25/2026 01/25/2025 Diabetes: Hemoglobin A1C 01/25/2026 01/25/2025, 01/20 SDOH Screening 01/25/2026 01/25/2025 Tobacco Screening 01/25/2026 01/25/2025 DTaP/Tdap/Td Vaccines (4 - Td or Tdap) 09/03/2031 09/02/2021, 01/09/2013, 12/23/2010 Zoster Vaccines (1 of 2) 2032 RSV Patients and Patients Aged 60 years or older (1 - 1-dose 75+ series) 2057 Influenza Vaccine Completed 01/25/2025, , 05/29/2019, Additional history exists HIB Vaccines Aged Out No longer eligi ble based on patient's age to complete this topic Hepatitis A Vaccines Aged Out No long er eligible based on patient's age to complete this topic IPV Vaccines Aged Out No longer eligi ble based on patient's age to complete this topic Meningococcal B Vaccine Aged Out No l onger eligible based on patient's age to complete this topic Meningococcal Vaccine Aged Out No bob izaiah eligible based on patient's age to complete this topic Pneumococcal Vaccine: Pediatrics (0 to 5 Years) and At-Risk Patients (6 to 49) Years Aged Out No longer eligible based on [...] GLUCOSE Routine 01/25/2025 9:27 AM EST Prediabetes INTRAORAL - COMPLETE SERIES OF RADIOGRAPHIC IMAGES Routine 04/22/2022 10:00 AM EST PERIODIC ORAL EVALUATION - ESTABLISHED PATIENT Routine 04/22/2022 10:00 AM EST from Last 3 Months or Most Recently Relevant to Health Maintenance Results * XR CERVICAL SPINE 3V (01/25/2025 10:35 AM EST) Anatomical Region Laterality Modality Abdomen Radiographic Dayanara ging 01/25/2025 10:3 5 AM EST Narrative 01/25/2025 10:43 AM EST [address] [address] XRay Report Signed Patient: Kayode Rodriguez MR#: [id number] : 1980 Acct:[id number] Age/Sex: 44 / M ADM Date: 01/25/25 Loc: HO.HHCX Attending Dr: Merissa Arias MD Ordering Physician: Merissa Arias MD Date of Service: 01/25/25 Procedure(s): XR cervical spine 3V Accession Number(s): [id number] cc: Merissa Arias MD Reason for Exam: [...] 01/25/25 1040 DD/ 1035 TD/TT: 01/25/25 1037 Injection Molding Process Technician: Procedure Note Donotuseinterpreter, Image - 01/25/[address] [address] XRay Report Signed Patient: Argelia Rodriguez#: [id number] : 1980Acct:[id number] Age/Sex: 44 / MADM Date: 01/25/25 Loc: HO.HHCX Attending Dr: Merissa Arias MD Ordering Physician: Merissa Arias MD Date of Service: 01/25/25 Procedure(s): XR cervical spine 3V Accession Number(s): [id number] cc: Merissa Arias MD Reason for Exam: [...] 01/25/25 1040 DD/ 1035 TD/TT: 01/25/25 1037 Injection Molding Process Technician: us Merissa Arias MD IMG XR PROCEDURES Final Result * (ABNORMAL) CBC auto differential (01/25/2025 10:15 AM EST) White Blood Count 5.2 4.8 - 10.8 X10*3/uL [facility] Red Blood Count 5.43 4.60 - 5.80 X10*6/uL [facility] Hemoglobin 14.6 14.0 - 18.0 g/dl [facility] Hematocrit 45.4 42.0 - 52.0 % [facility] Mean Corpuscular Volume 83.6 80.0 - 98.0 fL [facility] Mean Corpuscular Hemoglobin 26.9(L) 27.0 - 33.0 pg [facility] Mean Corpuscular HGB Conc 32.2 31.0 - 36.0 g/dl [facility] Red Cell Distribution Width 13.5 11.0 - 16.0 % [facility] Platelet Count 260 160 - 400 X10*3/uL [facility] Mean Platelet Volume 9.9 9.4 - 12.4 fL [facility] Neutrophils Percent Auto 55.0 45 - 73 % [facility] Imm Gran Pct Auto 0.2 0.0 - 0.4 % [facility] Lymphocytes Percent Auto 32.6 20 - 40 % [facility] Monocytes Percent Auto 8.9 2 - 11 % [facility] Eosinophils Percent Auto 2.5 0 - 4 % [facility] Basophils Percent Auto 0.8 0 - 2 % [facility] NRBC Pct Auto 0.0 0.0 - 0.2 /100WBC [facility] Neutrophils Absolute Auto 2.8 2.0 - 8.3 x10*3/uL [facility] Imm Gran Abs Auto 0.01 0.00 - 0.03 X10*3/uL [facility] Lymphocytes Absolute Auto 1.7 1.2 - 4.9 X10*3/uL [facility] Monocytes Absolute Auto 0.5 0.1 - 1.2 X10*3/uL [facility] Eosinophils Absolute Auto 0.1 0.0 - 0.4 X10*3/uL [facility] Basophils Absolute Auto 0.0 0.0 - 0.2 X10*3/uL [facility] NRBC Abs Auto 0.000 0.0 - 0.012 X10*3/uL [facility] Blood Venous blood specimen / Unknown 01/25/2025 10:15 AM EST 01/25/2025 11:17 AM EST Merissa Arias MD LAB BLOOD ORDERABLES Fin al Result [facility] [address] [place] [phone] * (ABNORMAL) POCT Hgb A1c (01/25/2025 9:34 AM EST) Hemoglobin A1C 5.9(A) 4.0 - 5.7 % QC Media Lot # [id number] Lot# Expiration Date [id number] Blood 01/25/2025 9:34 AM EST Merissa Arias MD POINT OF CARE TEST ENTER /EDIT ORDERABLES Final Result * POCT Glucose (01/25/2025 9:27 AM EST) [facility] Glucose Blood, POC 121 60 - 200 mg/dL QC Media Lot # [id number] Lot# Expiration Date [id number] Blood Capillary blood specimen / Unknown 01/25/2025 9:27 AM EST Merissa Arias MD POINT OF CARE TEST ENTER /EDIT ORDERABLES Final Result from Last 3 Months Insurance [facility] [place] [id number] [id number] Care Teams Maple Products Supervisor Relationship Specialty Start Date End Date Merissa Arias MD [address] [place] [phone] PCP - General Family Medicine 08/31/16
--- OUTSIDE RECORDS SUMMARY | 2025-01-25 11:59 | XMS_ITS | Encounter Summary ---
Author Organization [employer] Address [address] [facility] 7t [place] [address] Care Team Providers Care Canal Superintendent Name Role Phone Merissa Arias MD Primary Care Provider + Encounter Details Date Type Department Care Team (Latest Contact Info) Description 01/25/2025 Travel Social History Tobacco Use Types Packs/Day [...] housing situation today? I have karlsury rios 01/18/[address] you [...] AM EDT documented as of this encounter Functional Status * Over the past 2 weeks, how often have you been bothered by any of the following problems? Question Answer Date of Assessment Author Patient Health Questionnaire-2 Score 4 09/2024 9:29 AM Carey Boswell MA * Little interest or pleasure in doing things Answer Date of Assessment Author Nearly every day 01/25/2025 9:29 AM Carey Boswell MA * Feeling down, depressed, or hopeless Answer Date of Assessment Author Several days 01/25/2025 9:29 AM Carey Boswell MA * Trouble falling or staying asleep, or sleeping too much Answer Date of Assessment Author Nearly every day 01/25/2025 9:29 AM Carey Boswell MA * Feeling tired or having little energy Answer Date of Assessment Author More than half the days 01/25/2025 9:29 AM EST Carey Molina MA * Poor appetite or overeating Answer [...] Feeling nervous, anxious, or on edge 0 01/25/2025 9:27 AM Carey Boswell M A Not being able to stop or co [...] A Becoming easily annoyed or irritable 0 01/25/2025 9:27 AM Carey Boswell M A Feeling afraid as if somethi ng awful might happen 0 01/25/2025 9:27 AM Carey Boswell M A GARY-7 Total Score 0 01/25/2025 9:27 AM Carey Boswell MA documented as of this encounter Plan of Treatment Upcoming Encounters Date Type Department Care Team (Late st Contact Info) Description 04/05/2025 9:00 AM EST Office Visit [facility] [address] [place] [address] Gabriela Rizo OD [address] [place] [address] 04/12/2025 9:00 AM EST Office Visit [facility] [address] [place] [address] Merissa Arias MD [address] [place] [address] documented as of this encounter Visit Diagnoses Not on filedocumented in this encounter Additional Health Concerns Assessment Noted Time PHQ-9 Depression Total Score: 13 025 9:29 AM EST documented as of this encounter Care Teams Canal Superintendent Relationship Specialty Start Date End Date Merissa Arias MD [address] [place] [phone] PCP - General Family Medicine 08/31/16 documented as of this encounter
--- OUTSIDE RECORDS SUMMARY | 2025-01-25 11:59 | XMS_ITS | Encounter Summary ---
Author Organization [employer] [facility] Address [address] [facility] [address] [place] [address] Care Team Providers Care Charging Car Operator Name Role Phone Merissa Arias MD Primary Care Provider + Encounter Details Date Type Department Care Team (Latest Contact Info) Description 09/13/2018 Abstract [facility] CONVERSIONS Dental, Provider, DDS Social History Tobacco [...] Upcoming Encounters Date Type Department Care Team ( st Contact Info) Description 04/05/2025 9:00 AM EST Office Visit [facility] [address] [place] [address] Gabriela Rizo, OD [address] [place] [address] 04/12/2025 9:00 AM EST Office Visit [facility] [address] [place] [address] Merissa Arias MD [address] [place] [address] documented as of this encounter Visit Diagnoses Not on filedocumented in this encounter Care Teams Charging Car Operator Relationship Specialty Start Date End Date Merissa Arias MD [address] [place] [address] PCP - General Family Medicine 08/31/16 documented as of this encounter
--- OUTSIDE RECORDS SUMMARY | 2025-01-25 11:59 | XMS_ITS | Encounter Summary ---
Author Organization [employer] Address [address] [facility] [address]t [place] [address] Care Team Providers Care Barrel Cleaner Name Role Phone eMrissa Arias MD Primary Care Provider + Reason for Visit * Reason Onset Date Comments chart prep 01/24/2025 Encounter Details Date Type Department Care Team ([facility] st Contact Info) Description 01/24/2025 Telephone [facility] [address] [place], [place] [phone] Merissa Arias MD [address] [place], [place] [phone] chart prep Social History Tobacco Use Types Packs/Day Years Used Date Smoking Tobacco: Never Passive Smoke Exposure: Never Smokeless Tobacco: Never Alcohol Use Standard Drinks/Week Comments Never 0 (1 standard drink = 0.6 oz pur e alcohol) Depression Answer Date Recorded Patient Health Questionnaire-9 [...] AM EDT documented as of this encounter Miscellaneous Notes * Telephone Encounter - Leana Krishna MA - 01/24/2025 9:43 AM EST Chart Prep Labs: done Images: done Referrals: complete Vaccines due: Covid, Flu, Hep B, and HPV Screenings: not applicable Overdue care gaps: A1c, Glucose, SBIRT, SDOH, PHQ-9, GARY-7, and Disability screen documented in this encounter Plan of Treatment Upcoming Encounters Date Type Department Care Team (Late st Contact Info) Description 04/05/2025 9:00 AM EST Office Visit [facility] [address] [place] [address] Gabriela Rizo, OD [address] [place] [address] 04/12/2025 9:00 AM EST Office Visit [facility] [address] [place] [address] Merissa Arias MD [address] [place] [address] documented as of this encounter Visit Diagnoses Not on filedocumented in this encounter Care Teams Barrel Cleaner Relationship Specialty Start Date End Date Merissa Arias MD [address] [place] [phone] PCP - General Family Medicine 08/31/16 documented as of this encounter
[2025-01-25 12:07] LABS: Alanine Aminotransferase 36 U/L (0-40); Albumin Level 4.7 g/dL (3.5-5.0); Alkaline Phosphatase 45 U/L (39-117); Anion Gap 11 (12-20); Aspartate Amino Transferase 33 U/L (5-37); Blood Urea Nitrogen 19 mg/dL (9-16); Calcium 9.5 mg/dL (8.4-10.2); Carbon Dioxide 29 mmol/L (22-29); Chloride 104 mmol/L (96-108); Cholesterol 196 mg/dL (<200); Estimated Glomerular Filt Rate > 60; HDL Cholesterol 54 mg/dL (>40); Potassium 4.5 mmol/L (3.3-5.1); Sodium 139 mmol/L (135-145); Total Protein 7.4 g/dL (6.5-8.0); Triglycerides 128 mg/dL (<150)
[2025-01-25 12:22] LABS: HBS Num1 7.18 mIU/mL (0-7.99); HBc Num1 0.07 S/CO (0.00-0.79); HBsAGNum1 0.62 S/CO (0.00-0.99); HIV Num 1 0.06 S/CO (0.00-0.99); Hepatitis A Antibody IgM 0.27 Index (0-0.79); Hepatitis B Surface Antigen Negative (Negative); ~HepC Num1 0.08 S/CO (0.00-0.79); ~Hepatitis A Antibody IgM Nonreactive (Nonreactive); ~Hepatitis B Surface Antibody NONREACTIVE (Nonreactive); ~Hepatitis C Antibody Nonreactive (Nonreactive)
[2025-01-25 12:23] LABS: Syphilis Screen Nonreactive (Nonreactive)
[2025-01-25 12:43] LABS: Reflex LDLD? No
[2025-01-26 10:38] LABS: Lyme Abs Screen <0.90 index
== END 2025-01-25 10:10 | disposition home or self-care (01) ==
LOC: HO.HHCX 10:09
PROVIDERS: PCP Internal Medicine; Visit Provider Internal Medicine
DX: Z11.59 Encounter for screening for other viral diseases (principal); Z11.4 Encounter for screening for human immunodeficiency virus [HIV]; Z11.3 Encounter for screening for infections with a predominantly sexual mode of transmission; Z01.84 Encounter for antibody response examination; G44.86 Cervicogenic headache; M54.2 Cervicalgia; R73.03 Prediabetes; Z20.6 Contact with and (suspected) exposure to human immunodeficiency virus [HIV]
CPT/HCPCS: 36415; 72040; 80053; 80061; 82306; 84443; 85025; 86617; 86618; 86704; 86706; 86709; 86780; 86803; 87340; 87389

== ENCOUNTER → 2025-01-25 10:25 | Outpatient (BNV) | payer OTHER, SELFPAY | PROVIDERS: PCP Internal Medicine; Visit Provider Radiology Diagnostic Radiology | DX: M50.321 Other cervical disc degeneration at C4-C5 level (principal) | CPT/HCPCS: 72040 ==

== ENCOUNTER 2025-01-30 06:02 | Emergency (ER) | payer OTHER, SELFPAY ==
--- OUTSIDE RECORDS SUMMARY | 2025-01-25 09:15 | XMS_ITS | Encounter Summary ---
Author Organization [employer] Address [address] [facility] [address] [place] [address] Care Team Providers Care Geotechnical Engineer Name Role Phone Merissa Arias MD Primary Care Provider + Encounter Details Date Type Department Care Team ([facility] st Contact Info) Description 01/25/2025 9:15 AM EST Office Visit [facility] MEDICINE [address], [place] [phone] Merissa Arias MD [address] [place], [place] [phone] Preventative health care (Primary Dx); Prediabetes; Cervical paraspinal muscle spasm; Cervicogenic headache; Neck pain; Encounter for immunization; Screen for STD (sexually [...] your housing situation today? I have karl rios 01/18/[address] you li [...] A Trouble relaxing 0 01/25/2025 9:27 AM EST Carey Molina MA Being so restless that it is hard to sit still 0 01/25/2025 9:27 AM Carey Boswell M A Becoming easily annoyed or irritable 0 09/2024 9:27 AM EST JammieCarey MA Feeling afraid as if somethi ng awful might happen 0 01/25/2025 9:27 AM Carey Boswell M A GARY-7 Total Score 0 01/25/2025 9:27 AM Carey Boswell MA documented as of this encounter Progress Notes * Merissa Arias MD - 01/25/2025 9:15 AM EST SUBJECTIVE: Kayode Chang is a 44 y.o. year old male who presents for routine physical exam. Denies recent illness, injury, or hospitalization. Patient here for PE. -Colonoscopy: Never -Ophthalmology:>2y ago -Labs:2022 -Dental visit:>2y ago -Adult IZ: Hep B times 05/10/2020/COVID x 2+ booster by 2022/Tdap 2021 -Safety: Feels safe -Intimate Partner Violence Screening: Neg -In Relationship: Yes -STI screening: Interested -Hx STI/concern?No -Not Interested in PrEP -Lives with and children, on a first floor apartment. Acute Concerns: He reports daily headaches and neck pain for approximately six - eight months. Pain is present every morning upon waking and persists throughout the day, with no days free of symptoms. He notes increased tension in the neck, worsened by certain positions such as lying on his back or sitting with the neck forward. He denies sleep onset problems but wakes up early for work and has recently started waking up even earlier. Previously, headaches would improve with medication, but now pain is constant and unrelieved. Social History Social History Narrative Not on file Problem List[1] Family History[2] Review of Systems Constitutional: Negative for fever. HENT: Negative for congestion, ear pain, rhinorrhea and sore throat. Eyes: Negative for pain and discharge. Respiratory: Negative for cough and shortness of breath. Cardiovascular: Negative for chest pain. Gastrointestinal: Negative for abdominal pain, constipation, diarrhea and nausea. Endocrine: Negative for polydipsia. Genitourinary: Negative for dysuria and frequency. Musculoskeletal: Negative for arthralgias, back pain and neck pain. Neurological: Positive for headaches. Negative for dizziness and numbness. Psychiatric/Behavioral: Positive for sleep disturbance. Negative for agitation. OBJECTIVE: Vitals: 01/25/25 0924 BP: 110/58 Pulse: 64 Resp: 18 Temp: 98.7 ??F (37.1 ??C) SpO2: 96% Physical Exam Constitutional: Appearance: Normal appearance. HENT: Right Ear: Tympanic membrane and ear canal normal. Left Ear: Tympanic membrane and ear canal normal. Mouth/Throat: Mouth: Mucous membranes are moist. Pharynx: No oropharyngeal exudate or posterior oropharyngeal erythema. Eyes: Pupils: Pupils are equal, round, and reactive to light. Cardiovascular: Rate and Rhythm: Normal rate and regular rhythm. Heart sounds: No murmur heard. Pulmonary: Breath sounds: Normal breath sounds. No wheezing. Abdominal: General: Bowel sounds are normal. Palpations: Abdomen is soft. Tenderness: There is no abdominal tenderness. Musculoskeletal: Cervical back: Spasms, tenderness and bony tenderness (suboccipital) present. Decreased range of motion. Skin: General: Skin is warm. Neurological: General: No focal deficit present. Mental Status: He is alert and oriented to person, place, and time. Psychiatric: Mood and Affect: Mood normal. Problem List Items Addressed This Visit Preventative health care - Primary Discussed with patient re increase fresh fruit and vegetable intake. Counseled re moderate exercise as tolerated, up to 20min/d Patient feels safe at home. Eye exam: [place], next appointment scheduled for 04/05/2025 CRC screen: Not due yet, will start at age 48 Lipids/FBS: Overdue, advised to get labs done today Vaccinations: He agreed to influenza immunization today, will check hepatitis B titers. Patient declined COVID immunization. Dental visit: [place], list of dental clinics in the area was given to patient today Prediabetes A1c is at goal. 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 See headache Rx Relevant Medications acetaminophen (Tylenol) 500 MG tablet Cervicogenic headache - Probably related to cervical muscle spasm,? Stress, sleep disturbance?. - Prescribed cyclobenzaprine nightly for 10 days + acetaminophen. - Start amitriptyline 10 mg nightly after completing Flexeril prescription for 1-2 months. - Ordered cervical spine X-rays. - Follow-up visit scheduled in 6 weeks - Risks and side effects: Discussed possible drowsiness and fatigue with cyclobenzaprine and amitriptyline; advised to avoid driving and monitor for excessive sedation. Relevant Medications cyclobenzaprine (Flexeril) 10 MG tablet amitriptyline (Elavil) 10 MG tablet acetaminophen (Tylenol) 500 MG tablet Other Relevant Orders XR CERVICAL SPINE 3V (Completed) CBC auto differential (Completed) Syphilis Screen (Completed) Lyme Disease Ab with Reflex to Blot (IgG, IgM) Neck pain Relevant Medications acetaminophen (Tylenol) 500 MG tablet Other Relevant Orders XR CERVICAL SPINE 3V (Completed) Vitamin D, 25-Hydroxy, Total, Immunoassay (Completed) Other Visit Diagnoses Encounter for immunization Relevant Medications acetaminophen (Tylenol) 500 MG tablet Other Relevant Orders FLU VACCINE TRIVALENT [id number] (Fluarix) 19 yrs + (Completed) Screen for STD (sexually transmitted disease) Relevant Medications acetaminophen (Tylenol) 500 MG tablet Other Relevant Orders HIV-1/2 Antigen and Antibodies, Fourth Generation, with Reflexes (Completed) Hepatitis Panel, General (Completed) Syphilis Screen (Completed) Prediabetes: - Prediabetes confirmed, with HbA1c at 5.9% in the past year, currently well controlled. No furtherintervention required at this time. - Ordered repeat fasting blood work including HbA1c, glucose, cholesterol, thyroid panel, and otherroutine labs. Neck pain: - Neck pain attributed to muscle spasm and tension, likely cervicogenic in origin. - Prescribed cyclobenzaprine nightly for 10 days for acute muscle relaxation, to be taken with acetaminophen as needed. After initial course, start amitriptyline 10 mg nightly for 1-2 months to prevent recurrence of muscle spasm. Ordered cervical spine X-rays. Follow-up visit scheduled in 6 weeks to assess response to treatment and review results. - Risks and side effects: Discussed possible drowsiness and fatigue with cyclobenzaprine and amitriptyline; advised to avoid driving and monitor for excessive sedation. Cervicogenic headache: - Headaches considered secondary to cervical muscle spasm and tension. - Management as per neck pain, with muscle relaxant and preventive therapy. Cervical spine X-rays ordered. Follow-up in 6 weeks. - Risks and side effects: See neck pain. Preventative health care: - Preventive care reviewed, including dental, vision, and cancer screening. No additional risk factors identified. - Recommended dental cleaning every 6 months. Vision check scheduled for March. Advised routine colon cancer screening per guidelines. Ordered routine blood work for cholesterol, glucose, thyroid, and other preventive labs. Encounter for immunization: - Immunization status reviewed; COVID-19 and influenza vaccines recommended. - Offered influenza and COVID-19 vaccines; patient elected to receive influenza vaccine only. Advised to obtain vaccine at pharmacy if not available in clinic. This note was drafted using [employer] ([employer]) technology. The patient/patient's guardian has been informed and has consented to the use of this technology: Yes Follow Up: Medications Ordered Prior to Encounter[3] [1] Patient Active Problem List Diagnosis Genitourinary Chlamydia infection Gastroesophageal reflux disease Exposure to COVID-19 virus COVID-19 Cobalamin deficiency Chest pain Seasonal allergies Headache disorder Tension-type headache Microscopic hematuria Posterior rhinorrhea Visual impairment Cervical paraspinal muscle spasm Prediabetes Grief Neck pain Cervicogenic headache Preventative health care [2] Family History Problem Relation Name Age of Onset Hypertension Maternal Grandmother [3] Current Outpatient Medications on File Prior to Visit Medication Sig Dispense Refill azelastine (Optivar) 0.05 % ophthalmic solution Administer 1 drop into affected eye(s) every 12 (twelve) hours. betamethasone dipropionate (Diprolene) 0.05 % ointment Apply topically at bed time. fluticasone (Flonase) 50 MCG/ACT nasal spray INSTILL 1 SPRAY IN EACH NOSTRIL ONCE DAILY IN THE MORNING 48 g 0 ibuprofen 400 MG tablet 1-2 tabs po q8h prn pain/headache/fever 90 tablet 0 ibuprofen 400 MG tablet Take 1 tablet (400 mg) by mouth every 6 (six) hours if needed for moderate pain or fever for up to 30 doses. 30 tablet 0 lidocaine (Lidoderm) 5 % patch Apply 1 patch topically Once per day. Remove & discard patch within 12 hours or as directed by MD. 30 patch 2 loratadine (Claritin) 10 MG tablet Take 1 tablet by mouth at bed time. raNITIdine (Zantac) 150 MG tablet take 1 tablet by oral route 2 times every day tiZANidine (Zanaflex) 2 MG tablet Take 1 tablet (2 mg) by mouth if needed at bedtime for muscle spasms. May take 1-2 tablet by mouth at bedtime prn pain 30 tablet 0 [DISCONTINUED] acetaminophen (Tylenol) 500 MG tablet Take 1 tablet (500 mg) by mouth every 8 (eight) hours if needed for moderate pain. 30 tablet 0 No current facility-administered medications on file prior to visit. documented in this encounter Miscellaneous Notes * Assessment & Plan Note - Merissa Arias MD - 01/25/2025 1:45 PM EST Associated Problem(s): Preventative health care Discussed with patient re increase fresh fruit and vegetable intake. Counseled re moderate exercise as tolerated, up to 20min/d Patient feels safe at home. Eye exam: Overdue, next appointment scheduled for 04/05/2025 CRC screen: Not due yet, will start at age 48 Lipids/FBS: Overdue, advised to get labs done today Vaccinations: He agreed to influenza immunization today, will check hepatitis B titers. Patient declined COVID immunization. Dental visit: Overdue, list of dental clinics in the area was given to patient today * Assessment & Plan Note - Merissa Arias MD - 01/25/2025 1:42 PM EST Associated Problem(s): Prediabetes A1c is at goal. 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 See headache Rx * Assessment & Plan Note - Merissa Arias MD - 01/25/2025 1:34 PM EST Associated Problem(s): Cervicogenic headache - Probably related to cervical muscle spasm,? Stress, sleep disturbance?. - Prescribed cyclobenzaprine nightly for 10 days + acetaminophen. - Start amitriptyline 10 mg nightly after completing Flexeril prescription for 1-2 months. - Ordered cervical spine X-rays. - Follow-up visit scheduled in 6 weeks - Risks and side effects: Discussed possible drowsiness and fatigue with cyclobenzaprine and amitriptyline; advised to avoid driving and monitor for excessive sedation. documented in this encounter Plan of Treatment Upcoming Encounters Date Type Department Care Team (Late st Contact Info) Description 04/05/2025 9:00 AM EST Office Visit [facility] OPTOMETRY [address] [place] [address] Gabriela Rizo, OD [address] [place] [address] 04/12/2025 9:00 AM EST Office Visit [facility] MEDICINE [address] [place] [address] Merissa Arias MD [address] [place] [address] documented as of this encounter Procedures Procedure Name Priority Date/Time Associated Diagnosis Comments XR CERVICAL SPINE 3V Routine 01/25/2025 10:35 AM EST Neck pain Cervicogenic headache SYPHILIS SCREEN Routine 01/25/2025 10:15 AM EST Cervicogenic headache Screen for STD (sexually transmitted disease) VITAMIN D,25-OH,TOTAL,IA Routine 01/25/2025 10:15 AM EST Neck pain TSH W/REFLEX TO FT4 Routine 01/25/2025 1 0:15 AM EST Prediabetes LYME DISEASE AB W/REFL TO BLOT (IGG, IGM) Routine 01/25/2025 10:15 AM EST Cervicogenic headache LIPID PANEL WITH REFLEX TO DIRECT LDL Routine 01/25/2025 10:15 AM EST Prediabetes HEPATITIS PANEL, GENERAL Routine 01/25/2025 10:15 AM EST Screen for STD (sexually transmitted disease) CBC WITH AUTO DIFFERENTIAL Routine 01/25/2025 10:15 AM EST Cervicogenic headache HIV 1/2 ANTIGEN/ANTIBODY, FOURTH GENERATION W/RFL Routine 01/25/2025 10:15 AM EST Screen for STD (sexually transmitted disease) COMPREHENSIVE METABOLIC PANEL Routine 01/25/2025 10:15 AM EST Prediabetes POCT GLYCATED HEMOGLOBIN, TOTAL Routine 01/25/2025 9:34 AM EST Prediabetes POCT GLUCOSE Routine 01/25/2025 9:27 AM EST Prediabetes documented in this encounter Results * XR CERVICAL SPINE 3V (01/25/2025 10:35 AM EST) Anatomical Region Laterality Modality Abdomen Radiographic Dayanara ging 01/25/2025 10:3 5 AM EST Narrative 01/25/2025 10:43 AM EST [address] [address] XRay Report Signed Patient: Kayode Rodriguez MR#: [id number] : 1980 Acct:[id number] Age/Sex: 44 / M ADM Date: 01/25/25 Loc: HO.HHCX Attending Dr: Merissa Arias MD Ordering Physician: Merissa Arias MD Date of Service: 01/25/25 Procedure(s): XR cervical spine 3V Accession Number(s): [id number] cc: Merissa Arias MD Reason for Exam: [...] Jason Quesada MD 01/25/2025 10:40 AM EST Dictated By: Jason Quesada MD Signed By: <Electronically signed by Jason Quesada MD in OV> 01/25/25 1040 DD/ 1035 TD/TT: 01/25/25 1037 Gas Mask Assembler: Procedure Note Donotuseinterpreter, Image - 01/25/[address] [address] XRay Report Signed Patient: Argelia Rodriguez#: [id number] : 1980Acct:[id number] Age/Sex: 44 / MADM Date: 01/25/25 Loc: .HHCX Attending Dr: Merissa Arias MD Ordering Physician: Merissa Arias MD Date of Service: 01/25/25 Procedure(s): XR cervical spine 3V Accession Number(s): [id number] cc: Merissa Arias MD Reason for Exam: [...] 01/25/25 1040 DD/ 1035 TD/TT: 01/25/25 1037 Gas Mask Assembler: us Merissa Arias MD IMG XR PROCEDURES Final Result * Lyme Disease Ab with Reflex to Blot (IgG, IgM) (01/25/2025 10:15 AM EST) Lyme Antibody Screen <0.90 index [facility] Comment:Index Interpretatio n ----- < 0.90 Negative 0.90-1.09 Equivocal > 1.09 PositiveAs recommended by the Food and Drug Administration(FDA), all samples with positive or equivocalresults in a Borrelia burgdorferi antibody screenwill be tested using a blot method. Positive orequivocal screening test results should not beinterpreted as truly positive until verified as suchusing a supplemental assay (e.g., B. burgdorferi blot).The screening test and/or blot for B. burgdorferiantibodies may be falsely negative in early stagesof Lyme disease, including the period when erythemamigrans is apparent.THIS TEST WAS PERFORMED AT:[facility] [place] [phone] LOVETT MD Lyme Blot TNP [facility] 01/25/2025 10:1 5 AM EST 01/25/2025 11:17 AM EST us Merissa Arias MD LAB BLOOD ORDERABLES Fin al Result [facility] [address] [place] [address] [phone] * (ABNORMAL) Vitamin D, 25-Hydroxy, Total, Immunoassay (01/25/2025 10:15 AM EST) Vitamin D 25-OH Total 23.2(L) >30 ng/mL [facility] Comment: Health Based Reference Values*< 20 ng/mL Iqwnkfahr20-14 ng/mL Insufficient> 30 ng/mL Sufficient*Ramos TURK. N Engl J Med. 2007;357:266-280There is no well-established upper level of normal vitamin Dlevels. Some laboratories use 50 ng/mL as an upper limit ofnormal. However, toxicity is patient-dependent and may occurat any level. Careful correlation with the patient'spresentation is necessary and, if there is concern forvitamin D toxicity, treatment should be consideredirrespective of the serum level.Care must be taken in interpreting Vitamin D results fromdifferent laboratories and methodologies. Published datademonstrated that results from patients undergoinghemodialysis may show a negative bias when tested withvarious automated 25-OH vitamin D assays when compared toLC-MS/MS.When testing samples from patients whose predominant form ofVitamin D is Vitamin D2, such as patients receiving VitaminD2 supplementation, results that are subtherapeutic shouldbe confirmed with another method such as LC-MS/MS. Blood 01/25/2025 10:1 5 AM EST 01/25/2025 11:17 AM EST us Merissa Arias MD LAB BLOOD ORDERABLES Fin al Result [facility] [address] [place] [address] [phone] * TSH with Reflex to Free T4 (01/25/2025 10:15 AM EST) TSH reflex Free T4 0.66 0.32 - 4.0 uIU/mL [facility] Blood 01/25/2025 10:1 5 AM EST 01/25/2025 11:17 AM EST Merissa Arias MD LAB BLOOD ORDERABLES Fin al Result Performing Organization Address [facility] Co de Phone Number [facility] [address] [place] [phone] * Syphilis Screen (01/25/2025 10:15 AM EST) Syphilis Screen Nonreactive Nonreactive [facility] Blood 01/25/2025 10:1 5 AM EST 01/25/2025 11:17 AM EST Merissa Arias MD LAB BLOOD ORDERABLES Fin al Result Performing Organization Address [facility] Phone Number [facility] [address] [place] [phone] * Hepatitis Panel, General (01/25/2025 10:15 AM EST) Hepatitis A IgM Nonreactive Nonreactive [facility] Comment:IgM antibodies to MACK V not detected; does not exclude earlyacute or recovered HAV infection. ~Hepatitis B Surface Antibody NONREACTIVE Nonreactive [facility] Comment:Nonreactive: < 8.00 mIU/mL Hepatitis B Core Antibody Nonreactive Nonreactive [facility] Hepatitis C Antibody Nonreactive Nonreactive [facility] Comment:Antibodies to HCV no t detected; does not exclude early acuteHCV infection. Hepatitis B Surface Ag Negative Negative [facility] Blood 01/25/2025 10:1 5 AM EST 01/25/2025 11:17 AM EST Merissa Arias MD LAB BLOOD ORDERABLES Fin al Result Performing Organization Address [facility] Co de Phone Number [facility] [address] [place] [phone] * HIV-1/2 Antigen and Antibodies, Fourth Generation, with Reflexes (01/25/2025 10:15 AM EST) HIV AB/AG Nonreactive Nonreactive [facility] Comment:HIV-1 p24 Ag and/or HIV-1/HIV-2 Ab not detected.A test result that is nonreactive does not exclude thepossibility of exposure to or infection with HIV-1 and/orHIV-2. Nonreactive results in this assay for individualswith prior exposure to HIV-1 and/or HIV-2 may be due toantigen and antibody levels that are below the limit ofdetection of this assay.The NuConomy HIV Ag/Ab Combo assay result andsupplemental assay results should be interpreted inconjunction with the patient's clinical presentation,history and other laboratory results. If the results areinconsistent with clinical evidence, additional testing issuggested to confirm the result. Blood Venous blood specimen / Unknown 01/25/2025 10:15 AM EST 01/25/2025 11:17 AM EST us Merissa Arias MD LAB BLOOD ORDERABLES Fin al Result [facility] [address] [place] [phone] * (ABNORMAL) Lipid Panel with Reflex to Direct LDL (01/25/2025 10:15 AM EST) Triglycerides 128 <150 mg/dL [facility] Comment:Desirable Triglyceri de: less than 150 mg/dLBorderline High Triglyceride 150-199 mg/dLHigh Triglyceride: 200-499 mg/dLVery High Triglyceride: greater than or equal to 5OO mg/dL Cholesterol 196 <200 mg/dL [facility] Comment:Desirable Cholestero l: less than 200 mg/dLBorderline High Cholesterol: 200-239 mg/dLHigh Cholesterol: greater than 239 mg/dL LDL Cholesterol Calculated 117(H) <100 mg/dL [facility] Comment:Desirable LDL: less than 100 mg/dLNear Optimal/Above Optimal LDL: 110- 129 mg/dLBorderline High LDL: 130-159 mg/dLHigh LDL: 160-189 mg/dLVery High LDL: greater than or equal to 190 mg/dL HDL Cholesterol 54 >40 mg/dL [facility] Comment:Desirable HDL: great er than 40 mg/dL Note: This HDL assay may give artificially low results in patients with liver disease. Blood 01/25/2025 10:1 5 AM EST 01/25/2025 11:17 AM EST us Merissa Arias MD LAB BLOOD ORDERABLES Fin al Result [facility] [address] [place] [address] [phone] * (ABNORMAL) Comprehensive Metabolic Panel (01/25/2025 10:15 AM EST) Sodium 139 135 - 145 mmol/L [facility] Potassium 4.5 3.3 - 5.1 mmol/L [facility] Chloride 104 96 - 108 mmol/L [facility] Carbon Dioxide 29 22 - 29 mmol/L [facility] Anion Gap 11(L) 12 - 20 [facility] Urea Nitrogen (BUN) 19(H) 9 - 16 mg/dL [facility] Creatinine, Serum 1.00 0.5 - 1.4 mg/dL [facility] Estimated Glomerular Filt Rate >60 [facility] Comment:Chronic Kidney Disea se: Estimated GFR < 60 mL/min/1.79m6Lbctnw Kidney Disease: Estimated GFR < 15 mL/min/1.73m2 Glucose 87 60 - 115 mg/dL [facility] Calcium 9.5 8.4 - 10.2 mg/dL [facility] Bilirubin, Total 1.1(H) 0.0 - 1.0 mg/dL [facility] Aspartate Amino Transferase 33 5 - 37 U/L [facility] Alanine Aminotransferase 36 0 - 40 U/L [facility] Total Protein 7.4 6.5 - 8.0 g/dL [facility] Albumin Level 4.7 3.5 - 5.0 g/dL [facility] Alkaline Phosphatase 45 39 - 117 U/L [facility] Blood Venous blood specimen / Unknown 01/25/2025 10:15 AM EST 01/25/2025 11:17 AM EST us Merissa Arias MD LAB BLOOD ORDERABLES Fin al Result [facility] [address] [place] [phone] [phone] * (ABNORMAL) CBC auto differential (01/25/2025 10:15 AM EST) White Blood Count 5.2 4.8 - 10.8 X10*3/uL [facility] Red Blood Count 5.43 4.60 - 5.80 X10*6/uL [facility] Hemoglobin 14.6 14.0 - 18.0 g/dl [facility] Hematocrit 45.4 42.0 - 52.0 % [facility] Mean Corpuscular Volume 83.6 80.0 - 98.0 fL [facility] Mean Corpuscular Hemoglobin 26.9(L) 27.0 - 33.0 pg [facility] Mean Corpuscular HGB Conc 32.2 31.0 - 36.0 g/dl [facility] Red Cell Distribution Width 13.5 11.0 - 16.0 % [facility] Platelet Count 260 160 - 400 X10*3/uL [facility] Mean Platelet Volume 9.9 9.4 - 12.4 fL [facility] Neutrophils Percent Auto 55.0 45 - 73 % [facility] Imm Gran Pct Auto 0.2 0.0 - 0.4 % [facility] Lymphocytes Percent Auto 32.6 20 - 40 % [facility] Monocytes Percent Auto 8.9 2 - 11 % [facility] Eosinophils Percent Auto 2.5 0 - 4 % [facility] Basophils Percent Auto 0.8 0 - 2 % [facility] NRBC Pct Auto 0.0 0.0 - 0.2 /100WBC [facility] Neutrophils Absolute Auto 2.8 2.0 - 8.3 x10*3/uL [facility] Imm Gran Abs Auto 0.01 0.00 - 0.03 X10*3/uL [facility] Lymphocytes Absolute Auto 1.7 1.2 - 4.9 X10*3/uL [facility] Monocytes Absolute Auto 0.5 0.1 - 1.2 X10*3/uL [facility] Eosinophils Absolute Auto 0.1 0.0 - 0.4 X10*3/uL [facility] Basophils Absolute Auto 0.0 0.0 - 0.2 X10*3/uL [facility] NRBC Abs Auto 0.000 0.0 - 0.012 X10*3/uL [facility] Blood Venous blood specimen / Unknown 01/25/2025 10:15 AM EST 01/25/2025 11:17 AM EST Merissa Arias MD LAB BLOOD ORDERABLES Fin al Result Performing Organization Address City/State/[facility] Co de Phone Number [facility] [address] [place] [phone] * (ABNORMAL) POCT Hgb A1c (01/25/2025 9:34 AM EST) Hemoglobin A1C 5.9(A) 4.0 - 5.7 % QC Media Lot # [id number] Lot# Expiration Date [id number] Blood 01/25/2025 9:34 AM EST Merissa Arias MD POINT OF CARE TEST ENTER /EDIT ORDERABLES Final Result * POCT Glucose (01/25/2025 9:27 AM EST) Glucose Blood, POC 121 60 - 200 mg/dL QC Media Lot # [id number] Lot# Expiration Date [id number] Blood Capillary blood specimen / Unknown 01/25/2025 9:27 AM EST Merissa Arias MD POINT OF CARE TEST ENTER /EDIT ORDERABLES Final Result documented in this encounter Visit Diagnoses Diagnosis Preventative health care- Primary Routine general medical examination at a health care facility Prediabetes Other abnormal glucose Cervical paraspinal muscle spasm Spasm of muscle Cervicogenic headache Headache Neck pain Cervicalgia Encounter for immunization Screen for STD (sexually transmitted disease) Screening examination for venereal disease documented in this encounter Additional Health Concerns Assessment Noted Time PHQ-9 Depression Total Score: 13 01/25/ 025 9:29 AM EST documented as of this encounter Care Teams Geotechnical Engineer Relationship Specialty Start Date End Date Merissa Arias MD [address] [place] [phone] PCP - General Family Medicine 08/31/16 documented as of this encounter
[2025-01-30 06:08] VITALS: BP 113/78; PULSE 73; RESP 16; TEMP 36.4; O2SAT 96; BMI 33.7
[2025-01-30 06:37] LABS: MANUAL DIFF FLAG NO
--- OUTSIDE RECORDS SUMMARY | 2025-01-30 06:47 | XMS_ITS | Encounter Summary ---
Author Organization [employer] [facility] Address [address] [facility] 7t [place] [address] Care Team Providers Care Anode Crew Supervisor Name Role Phone Merissa Arias MD Primary Care Provider + Encounter Details Date Type Department Care Team (Latest Contact Info) Description 09/13/2018 Abstract [facility] CONVERSIONS Dental, Provider, DDS Social History [...] Description 04/05/2025 9:00 AM EST Office Visit [facility] [address] [place] [address] Gabriela Rizo, OD [address] [place] [address] 04/12/2025 9:00 AM EST Office Visit [facility] [address] [place] [address] Merissa Arias MD [address] [place] [address] documented as of this encounter Visit Diagnoses Not on filedocumented in this encounter Care Teams Anode Crew Supervisor Relationship Specialty Start Date End Date Merissa Arias MD [address] [place] [address] PCP - General Family Medicine 08/31/16 documented as of this encounter
[2025-01-30 06:48] LABS: Hematocrit 45.7 % (42.0-52.0); Hemoglobin 14.8 g/dl (14.0-18.0); Imm Gran Abs Auto 0.01 X10*3/uL (0.00-0.03); Imm Gran Pct Auto 0.2 % (0.0-0.4); Lymphocytes Absolute Auto 1.7 X10*3/uL (1.2-4.9); Mean Corpuscular HGB Conc 32.4 g/dl (31.0-36.0); Mean Corpuscular Hemoglobin 26.9 pg (27.0-33.0); Mean Corpuscular Volume 83.1 fL (80.0-98.0); NRBC Abs Auto 0.000 X10*3/uL (0.0-0.012); NRBC Pct Auto 0.0 /100WBC (0.0-0.2); Platelet Count 250 X10*3/uL (160-400); Red Blood Count 5.50 X10*6/uL (4.60-5.80); White Blood Count 5.0 X10*3/uL (4.8-10.8)
--- OUTSIDE RECORDS SUMMARY | 2025-01-30 06:48 | XMS_ITS | Encounter Summary ---
Author Organization [employer] Address [address] [facility] [address] [place] [address] Care Team Providers Care Barbering Teacher Name Role Phone Merissa Arias MD [...] annoyed or irritable 0 09/2024 9:27 AM Carey Boswell MA Feeling afraid as if somethi ng awful might happen 0 01/25/2025 9:27 AM Carey Boswell M A GARY-7 Total Score 0 01/25/2025 9:27 AM Carey Boswell MA documented as of this encounter Plan of Treatment Upcoming Encounters Date Type Department Care Team (Late st Contact Info) Description 04/05/2025 9:00 AM EST Office Visit [facility] [address] [place] [address] Gabriela Rizo OD [address] [place] [address] 04/12/2025 9:00 AM EST Office Visit [facility] [address] [place] [address] Merissa Arias MD [address] [place] [address] documented as of this encounter Visit Diagnoses Not on filedocumented in this encounter Additional Health Concerns Assessment Noted Time PHQ-9 Depression Total Score: 13 025 9:29 AM EST documented as of this encounter Care Teams Barbering Teacher Relationship Specialty Start Date End Date Merissa Arias MD [address] [place] [address] PCP - General Family Medicine 08/31/16 documented as of this encounter
--- OUTSIDE RECORDS SUMMARY | 2025-01-30 06:48 | XMS_ITS | Encounter Summary ---
Author Organization [employer] Address [address] [facility] [address] [place] [address] Care Team Providers Care Firearms Specialist Name Role Phone Merissa Arias MD Primary Care Provider + Encounter Details Date Type Department Care Team ([facility] st Contact Info) Description 01/25/2025 Results Follow-Up [facility] [address] [place] [address] Merissa Arias MD [address] [place] [address] POCT Glucose, POCT Hgb A1c, CBC auto differential, Additional followed-up results: 8 Social History Tobacco Use Types Packs/Day Years [...] co ntrol worrying 0 01/25/2025 9:27 AM EST Carey Agudelo M A Worrying too much about diff [...] awful might happen 0 01/25/2025 9:27 AM EST Carey Agudelo M A GARY-7 Total Score 0 01/25/2025 9:27 AM Carey Boswell MA documented as of this encounter Miscellaneous Notes * Result Encounter Note - Merissa Arias MD - 01/25/2025 1:50 PM EST X-rays of the cervical spine done today show mild DJD changes which are probably the culprit for patient's symptoms. I had discussed about POC including management of muscle spasm, will follow-up with patient at next visit. No need for additional Rx at this time * Result Encounter Note - Merissa Arias MD - 01/25/2025 1:48 PM EST CMP today is fairly normal, mildly high bilis (same as previous) with normal LFTs and asymptomatic patient, can be c/w Gilbert's disease. No need for addtl w/u now, I will fu with patient at next appointment. documented in this encounter Plan of Treatment Upcoming Encounters Date Type Department Care Team (Late st Contact Info) Description 04/05/2025 9:00 AM EST Office Visit [facility] [address] [place] [address] Darrius, Gabriela, OD [address] [place] [address] 04/12/2025 9:00 AM EST Office Visit [facility] [address] [place] [address] Merissa Arias MD [address] [place] [address] documented as of this encounter Visit Diagnoses Not on filedocumented in this encounter Additional Health Concerns Assessment Noted Time PHQ-9 Depression Total Score: 13 025 9:29 AM EST documented as of this encounter Care Teams Firearms Specialist Relationship Specialty Start Date End Date Merissa Arias MD [address] [place] [address] PCP - General Family Medicine 08/31/16 documented as of this encounter
--- OUTSIDE RECORDS SUMMARY | 2025-01-30 06:48 | XMS_ITS | Clinical Summary ---
Author Organization [employer] Address [address] [facility] [address] [place] [address] Care Team Providers Care Engineering Technology Instructor Name Role Phone Merissa Arias MD Primary [...] Date Neck pain 01/25/2025 Cervicogenic headache 01/25/2025 Assessment & Plan (01/25/2025 1:34 PM EST): - Probably related to cervical muscle spasm,? [...] avoid driving and monitor for excessive sedation. Preventative health care 01/25/2025 Assessment & Plan (01/25/2025 1:45 PM EST): Discussed with patient re increase fresh fruit [...] area was given to patient today Prediabetes 06/20/2023 Assessment & Plan (01/25/2025 1:42 PM EST): A1c is at goal. 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 See headache Rx Assessment & Plan (06/20/2023 10:44 AM EDT): [...] Description 01/25/2025 9:15 AM EST Office Visit [facility] [address] [place] [phone] Merissa Arias MD Preventative health care (Primary Dx); Prediabetes; Cervical paraspinal muscle spasm; Cervicogenic headache; Neck pain; Encounter for immunization; Screen for STD (sexually transmitted disease) 01/25/2025 Results Follow-Up [facility] [address] [place] [phone] Merissa Arias MD POCT Glucose, POCT Hgb A1c, CBC auto differential, Additional followed-up results: 8 01/25/2025 Travel 01/24/2025 Telephone [facility] [address] [place] [phone] Merissa Arias MD chart prep 01/18/2025 Patient Outreach [facility] [address] [place] [address] Merissa Arias MD Pre-visit Planning (SDOH negative, Tobacco screening negative. ) 11/22/2024 Telephone [facility] [address] [place] [address] Merissa Arias MD Chart Prep 11/14/2024 Patient Outreach [facility] [address] [place] [address] Merissa Arias MD Pre-visit Planning ((Unable to [...] Description 04/05/2025 9:00 AM EST Office Visit [facility] [address] [place] [address] Gabriela Rizo, OD [address] [place] [address] 04/12/2025 9:00 AM EST Office Visit [facility] [address] [place] [address] Merissa Arias MD [address] [place] [address] Health Maintenance Due Date Last Done Comments Dental Prophylaxis 1980 Disability Screening 1980 Family Planning (PISQ) 1997 HPV Vaccines (1 - Male 3-dose series) 1997 Hepatitis B Vaccines (3 of 3 - 19+ 3-dose series) 05/13/2021 03/18/2021, 06/26/2018 Dental Oral Exam 10/21/2022 04/22/2022 Dental X-Ray: Bitewings 04/23/2023 04/22/2022 COVID-19 Vaccine ( - season) 2024 04/12/2022, 05/05/2021, 09/09/2020, Additional history exists Dental X-Ray: Full Mouth 04/23/2025 04/22/2022 Depression Monitoring 07/25/2025 01/25/2025, 025 Alcohol/Substance Use Screening 01/25/2026 01/25/2025 Diabetes: Hemoglobin A1C 01/25/2026 01/25/2025, 01/20 SDOH Screening 01/25/2026 01/25/2025 Tobacco Screening 01/25/2026 01/25/2025 Lipid Panel 01/25/2030 01/25/2025 DTaP/Tdap/Td Vaccines (4 - Td or Tdap) 09/03/2031 09/02/2021, 01/09/2013, 12/23/2010 Zoster Vaccines (1 of 2) 2032 RSV Patients and Patients Aged 60 years or older (1 - 1-dose 75+ series) 2057 HIV Screening Completed 01/25/2025 Hepatitis C Screening Completed 01/25/2025 Influenza Vaccine Completed 01/25/2025, , 05/29/2019, Additional [...] 10:35 AM EST Neck pain Cervicogenic headache LYME DISEASE AB W/REFL TO BLOT (IGG, IGM) Routine 01/25/2025 10:15 AM EST Cervicogenic headache VITAMIN D,25-OH,TOTAL,IA Routine 01/25/2025 10:15 AM EST Neck pain TSH W/REFLEX TO FT4 Routine 01/25/2025 1 0:15 AM EST Prediabetes SYPHILIS SCREEN Routine 01/25/2025 10:15 AM EST Cervicogenic headache Screen for STD (sexually transmitted disease) HEPATITIS PANEL, GENERAL Routine 01/25/2025 10:15 AM EST Screen for STD (sexually transmitted disease) HIV 1/2 ANTIGEN/ANTIBODY, FOURTH GENERATION W/RFL Routine 01/25/2025 10:15 AM EST Screen for STD (sexually transmitted disease) LIPID PANEL WITH REFLEX TO DIRECT LDL Routine 01/25/2025 10:15 AM EST Prediabetes COMPREHENSIVE METABOLIC PANEL Routine 01/25/2025 10:15 AM EST Prediabetes CBC WITH AUTO DIFFERENTIAL Routine 01/25/2025 10:15 [...] AM EST Narrative 01/25/2025 10:43 AM EST [facility] [address] [place] [address] XRay Report Signed Patient: Kayode Rodriguez MR#: [id number] : 1980 Acct:[id number] Age/Sex: 44 / M ADM Date: 01/25/25 Loc: .HHCX Attending Dr: Merissa Arias MD Ordering Physician: Merissa Arias MD Date of Service: 01/25/25 Procedure(s): XR cervical spine 3V Accession Number(s): [id number] cc: Merissa Arias MD Reason for Exam: [...] 01/25/25 1040 DD/ 1035 TD/TT: 01/25/25 1037 Drill Press Operator Numerical Control: Procedure Note Donotuseinterpreter, Image - 01/25/[address] [address] XRay Report Signed Patient: Argelia Rodriguez#: [id number] : 1980Acct:[id number] Age/Sex: 44 / MADM Date: 01/25/25 Loc: HO.HHCX Attending Dr: Merissa Arias MD Ordering Physician: Merissa Arias MD Date of Service: 01/25/25 Procedure(s): XR cervical spine 3V Accession Number(s): [id number] cc: Merissa Arias MD Reason for Exam: [...] 01/25/2025 10:40 AM EST Dictated By: Jason uQesada MD Signed By: <Electronically signed by Jason Quesada MD in OV> 01/25/25 1040 DD/ 1035 TD/TT: 01/25/25 1037 Drill Press Operator Numerical Control: Merissa Arias MD IMG XR PROCEDURES Final Result * Syphilis Screen (01/25/2025 10:15 AM EST) Syphilis Screen Nonreactive Nonreactive [facility] Blood 01/25/2025 10:1 5 AM EST 01/25/2025 11:17 AM EST Merissa Arias MD LAB BLOOD ORDERABLES Fin al Result Performing Organization Address [facility]/ZIP Co de Phone Number [facility] [address] [place] [address] [phone] * (ABNORMAL) Vitamin D, 25-Hydroxy, Total, Immunoassay (01/25/2025 10:15 AM EST) Vitamin D 25-OH Total 23.2(L) >30 ng/mL [facility] Comment: Health Based Reference Values*< 20 ng/mL [id number] ng/mL Insufficient> 30 ng/mL Sufficient*Ramos TURK. N [...] ORDERABLES Fin al Result Performing Organization Address [facility]/ZIP Co de Phone Number [facility] [address] [place] [address] [phone] * TSH with Reflex to Free T4 (01/25/2025 10:15 AM EST) TSH reflex Free T4 0.66 0.32 - 4.0 uIU/mL [facility] Blood 01/25/2025 10:1 5 AM EST 01/25/2025 11:17 AM EST Merissa Arias MD LAB BLOOD ORDERABLES Fin al Result Performing Organization Address [facility] Co de Phone Number [facility] [address] [place] [phone] * Lyme Disease Ab with Reflex to Blot (IgG, IgM) (01/25/2025 10:15 AM EST) Pathologist [facility] Lyme Antibody Screen <0.90 index [facility] Comment:Index Interpretation ----- < 0.90 Negative 0.90-1.09 Equivocal > [...] when erythemamigrans is apparent.THIS TEST WAS PERFORMED AT:[facility] [place] [id number] LOVETT MD Lyme Blot TNP [facility] 01/25/2025 10:1 5 AM EST 01/25/2025 11:17 AM EST Merissa Arias MD LAB BLOOD ORDERABLES Fin al Result Performing Organization Address [facility] Co de Phone Number [facility] [address] [place] [phone] * (ABNORMAL) Lipid Panel with Reflex to Direct LDL (01/25/2025 10:15 AM EST) Triglycerides 128 <150 mg/dL [facility] Comment:Desirable Triglyceri de: less than 150 mg/dLBorderline High Triglyceride 150-199 mg/dLHigh Triglyceride: 200-499 mg/dLVery High Triglyceride: greater than or equal to 5OO mg/dL Cholesterol 196 <200 mg/dL [facility] Comment:Desirable Cholestero l: less than 200 mg/dLBorderline High Cholesterol: 200-239 mg/dLHigh Cholesterol: greater than 239 mg/dL LDL Cholesterol Calculated 117(H) <100 mg/dL [facility] Comment:Desirable LDL: less than 100 mg/dLNear Optimal/Above Optimal LDL: 110- 129 mg/dLBorderline High LDL: 130-159 mg/dLHigh LDL: 160-189 mg/dLVery High LDL: greater than or equal to 190 mg/dL HDL Cholesterol 54 >40 mg/dL [facility] Comment:Desirable HDL: great er than 40 mg/dL Note: This HDL assay may give artificially low results in patients with liver disease. Blood 01/25/2025 10:1 5 AM EST 01/25/2025 11:17 AM EST us Merissa Arias MD LAB BLOOD ORDERABLES Fin al Result [facility] [address] [place] [phone] * Hepatitis Panel, General (01/25/2025 10:15 AM EST) Hepatitis A IgM Nonreactive Nonreactive [facility] Comment:IgM antibodies to MACK V not detected; does not exclude earlyacute or recovered HAV infection. ~Hepatitis B Surface Antibody NONREACTIVE Nonreactive [facility] Comment:Nonreactive: < 8.00 mIU/mL Hepatitis B Core Antibody Nonreactive Nonreactive [facility] Hepatitis C Antibody Nonreactive Nonreactive [facility] Comment:Antibodies to HCV no t detected; does not exclude early acuteHCV infection. Hepatitis B Surface Ag Negative Negative [facility] Blood 01/25/2025 10:1 5 AM EST 01/25/2025 11:17 AM EST Merissa Arias MD LAB BLOOD ORDERABLES Fin al Result [facility] [address] [place] [phone] [phone] * (ABNORMAL) CBC auto differential (01/25/2025 10:15 AM EST) White Blood Count 5.2 4.8 - 10.8 X10*3/uL [facility] Red Blood Count 5.43 4.60 - 5.80 X10*6/uL [facility] Hemoglobin 14.6 14.0 - 18.0 g/dl [facility] Hematocrit 45.4 42.0 - 52.0 % [facility] Mean Corpuscular Volume 83.6 80.0 - 98.0 fL [facility] Mean Corpuscular Hemoglobin 26.9(L) 27.0 - 33.0 pg [facility] Mean Corpuscular HGB Conc 32.2 31.0 - 36.0 g/dl [facility] Red Cell Distribution Width 13.5 11.0 - 16.0 % [facility] Platelet Count 260 160 - 400 X10*3/uL [facility] Mean Platelet Volume 9.9 9.4 - 12.4 fL [facility] Neutrophils Percent Auto 55.0 45 - 73 % [facility] Imm Gran Pct Auto 0.2 0.0 - 0.4 % [facility] Lymphocytes Percent Auto 32.6 20 - 40 % [facility] Monocytes Percent Auto 8.9 2 - 11 % [facility] Eosinophils Percent Auto 2.5 0 - 4 % [facility] Basophils Percent Auto 0.8 0 - 2 % [facility] NRBC Pct Auto 0.0 0.0 - 0.2 /100WBC [facility] Neutrophils Absolute Auto 2.8 2.0 - 8.3 x10*3/uL [facility] Imm Gran Abs Auto 0.01 0.00 - 0.03 X10*3/uL [facility] Lymphocytes Absolute Auto 1.7 1.2 - 4.9 X10*3/uL [facility] Monocytes Absolute Auto 0.5 0.1 - 1.2 X10*3/uL [facility] Eosinophils Absolute Auto 0.1 0.0 - 0.4 X10*3/uL [facility] Basophils Absolute Auto 0.0 0.0 - 0.2 X10*3/uL [facility] NRBC Abs Auto 0.000 0.0 - 0.012 X10*3/uL [facility] Blood Venous blood specimen / Unknown 01/25/2025 10:15 AM EST 01/25/2025 11:17 AM EST Merissa Arias MD LAB BLOOD ORDERABLES Fin al Result [facility] [address] [place] [phone] * HIV-1/2 Antigen and Antibodies, Fourth Generation, with Reflexes (01/25/2025 10:15 AM EST) HIV AB/AG Nonreactive Nonreactive [facility] Comment:HIV-1 p24 Ag and/or HIV-1/HIV-2 Ab not detected.A test result that is nonreactive does not exclude thepossibility of exposure to or infection with HIV-1 and/orHIV-2. Nonreactive results in this assay for individualswith prior exposure to HIV-1 and/or HIV-2 may be due toantigen and antibody levels that are below the limit ofdetection of this assay.The Nurigene HIV Ag/Ab Combo assay result andsupplemental assay results should be interpreted inconjunction with the patient's clinical presentation,history and other laboratory results. If the results areinconsistent with clinical evidence, additional testing issuggested to confirm the result. Blood Venous blood specimen / Unknown 01/25/2025 10:15 AM EST 01/25/2025 11:17 AM EST us Merissa Arias MD LAB BLOOD ORDERABLES Fin al Result [facility] [address] [place] [phone] [phone] * (ABNORMAL) Comprehensive Metabolic Panel (01/25/2025 10:15 AM EST) Sodium 139 135 - 145 mmol/L [facility] Potassium 4.5 3.3 - 5.1 mmol/L [facility] Chloride 104 96 - 108 mmol/L [facility] Carbon Dioxide 29 22 - 29 mmol/L [facility] Anion Gap 11(L) 12 - 20 [facility] Urea Nitrogen (BUN) 19(H) 9 - 16 mg/dL [facility] Creatinine, Serum 1.00 0.5 - 1.4 mg/dL [facility] Estimated Glomerular Filt Rate >60 [facility] Comment:Chronic Kidney Disea se: Estimated GFR < 60 mL/min/1.75o9Bctykw Kidney Disease: Estimated GFR < 15 mL/min/1.73m2 Glucose 87 60 - 115 mg/dL [facility] Calcium 9.5 8.4 - 10.2 mg/dL [facility] Bilirubin, Total 1.1(H) 0.0 - 1.0 mg/dL [facility] Aspartate Amino Transferase 33 5 - 37 U/L [facility] Alanine Aminotransferase 36 0 - 40 U/L [facility] Total Protein 7.4 6.5 - 8.0 g/dL [facility] Albumin Level 4.7 3.5 - 5.0 g/dL [facility] Alkaline Phosphatase 45 39 - 117 U/L [facility] Blood Venous blood specimen / Unknown 01/25/2025 10:15 AM EST 01/25/2025 11:17 AM EST us Merissa Arias MD LAB BLOOD ORDERABLES Fin al Result [facility] [address] [place] [phone] * (ABNORMAL) POCT Hgb A1c (01/25/2025 9:34 AM EST) Hemoglobin A1C 5.9(A) 4.0 - 5.7 % QC Media Lot # [id number] Lot# Expiration Date [id number] Blood 01/25/2025 9:34 AM EST Merissa Arias MD POINT OF CARE TEST ENTER /EDIT ORDERABLES Final Result * POCT Glucose (01/25/2025 9:27 AM EST) Glucose Blood, POC 121 60 - 200 mg/dL [employer] Lot # [id number] Lot# Expiration Date [id number] Blood Capillary blood specimen / Unknown 01/25/2025 9:27 AM EST Merissa Arias MD POINT OF CARE TEST ENTER /EDIT ORDERABLES Final Result from Last 3 Months Insurance [facility] [facility] [address] [place] [address] [place] [id number] Care Teams Engineering Technology Instructor Relationship Specialty Start Date End Date Merissa Arias MD [address] [place] [phone] PCP - General Family Medicine 08/31/16
[2025-01-30 06:52] LABS: Alanine Aminotransferase 37 U/L (0-40); Albumin Level 4.5 g/dL (3.5-5.0); Alkaline Phosphatase 47 U/L (39-117); Anion Gap 13 (12-20); Aspartate Amino Transferase 30 U/L (5-37); Blood Urea Nitrogen 19 mg/dL (9-16); Calcium 9.2 mg/dL (8.4-10.2); Carbon Dioxide 25 mmol/L (22-29); Chloride 106 mmol/L (96-108); Creatinine Clr Calc Pharmacy 153.4; Estimated Glomerular Filt Rate > 60; Lipase 19 U/L (8-78); Potassium 4.1 mmol/L (3.3-5.1); Sodium 140 mmol/L (135-145); Total Protein 7.3 g/dL (6.5-8.0)
--- NOTE | 2025-01-30 06:56 | ED_ITS ---
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 Mode of arrival: ambulatory Limitations: language barrier History of Present Illness ED Provider: HPI Narrative: 44-year-old male with documented history of migraines, reports that he is having a migraine after eating out and then having nausea and vomiting, denied abdominal pain to me, he states prior to that was having diarrhea and he always has a headache saw his PCP last week because his headache starts in the base of his head he was prescribed acetaminophen and Flexeril, but headache is a daily occurrence and however migraines he has a every 3-4 months, no new features no weakness in upper or lower extremities no double vision, no sensory deficits reported, he reports photophobia, no phonophobia no fevers or chills. Related Data Previous Rx's ?Medication ?Instructions ?Recorded omeprazole 40 mg capsule,delayed 40 mg PO DAILY #30 ca ps 07/17/20 release sucralfate 1 gram tablet 1 g PO TID #90 tabs 07/17/20 albuterol sulfate 90 mcg/actuation 1 inh inhalation QI D PRN shortness 03/28/21 aerosol inhaler of breath or wheezing #8.5 g ronnie azithromycin 250 mg tablet See Rx Instructions PO .COM PLEX #6 03/28/21 tabs codeine 10 mg-guaifenesin 100 mg/5 5 ml PO Q6H PRN col d symptoms #120 03/28/21 mL oral liquid (Guaifenesin AC) mL cyclobenzaprine 10 mg tablet 10 mg PO Q8H PRN Muscle s pasm #14 03/28/21 tabs amoxicillin 875 mg-potassium 1 tab PO BID #14 tabs clavulanate 125 mg tablet prednisone 20 mg tablet 40 mg (2 x 20 mg) PO DAILY 5 days 09/07/21 #10 tabs cyclobenzaprine 10 mg tablet 10 mg PO TID PRN muscle s pasm #14 10/29/21 tabs ondansetron 4 mg disintegrating 4 mg PO Q8H PRN nausea and 10/29/21 tablet vomiting #20 tabs sumatriptan succinate 50 mg tablet 50 mg PO Q2-4H PRN migraine 10/29/21 headache #10 tabs otbcgxf-huvpxykgekvgl-xtfrjxju 250 2 tab PO Q6H PRN he adache #30 tabs 03/02/23 mg-250 mg-65 mg tablet (Excedrin Migraine) diphenhydramine HCl 25 mg capsule 50 mg (2 x 25 mg) PO Q6H PRN 03/02/23 headache, nausea, vomiting #20 caps metoclopramide HCl 10 mg tablet 10 mg PO Q6H PRN nause a and 03/02/23 (Reglan) vomiting #14 tabs sumatriptan succinate 50 mg tablet 50 mg PO Q2-4H PRN migraine 03/18/23 headache #10 tabs ibuprofen 600 mg tablet 600 mg PO Q6H PRN pain #30 t abs 04/06/23 nirmatrelvir 300 mg (150 mg See Rx Instructions PO .CO MPLEX 04/06/23 x2)-ritonavir 100 mg tablet,dose #30 ea pack (Paxlovid) ondansetron 4 mg disintegrating 4 mg PO Q8H PRN nausea and 04/06/23 tablet vomiting #20 tabs Allergies Allergy/AdvReac Type Severity Reaction Status Date / Time No Known Allergies Allergy Verified 01/30/25 06:14 Review of Systems 2 Constitutional: Constitutional: Reports as per [facility] Past Medical History Medical History Migraine Social History Social History Alcohol intake: never Patient Tobacco Use Status: Never used Tobacco Advance Directives: No Advance Directives Information Provided: Yes Physical Exam 2 Exam: Exam: General: ?Appears of stated age ? 3 mm reactive bilaterally ? Neck: Supple, no LAD, no neck stiffness, some tenderness along the left suboccipital area ? ?CV: RRR, no obvious murmurs appreciated ? ?Resp: ?No wheezing rales rhonchi no stridor moving air well ? Abd: ?Bowel sounds are present, no tenderness no rebound no rigidity ? ?MSK: FROM, strength 5/5 all extremities ? Skin: Warm, dry, intact, ? ?Neuro: ?Alert and oriented x3, moving upper and lower extremities symmetrically, no obvious facial asymmetry noted, cranial nerves 2-12 intact, no nystagmus vertical or horizontal, no dysmetria upper or lower extremities no sensory deficits upper or lower extremities Vital Signs: Vital Signs: Last Vital Signs Temp 97.6 F 01/30/25 06:08 Pulse 75 01/30/25 08:18 Resp 16 01/30/25 08:18 BP 125/82 01/30/25 08:18 Pulse Ox 99 01/30/25 08:18 O2 Del Method Room Air 01/30/25 08:18 BMI result Body Mass Index 33.7 Medications Administered Discontinued Medications Generic Name Dose Route Start Last Admin Trade Name Arashq PRN Reason Stop Dose Admin Diazepam 2.5 mg 01/30/25 06:55 01/30/25 07:05 Diazepam 10 Mg/2 Ml Cartridge IVPUSH 01/30/25 06:56 2.5 mg STAT STA Administration Diphenhydramine HCl 25 mg 01/30/25 06:55 01/30/25 07:04 Diphenhydramine Hcl 50 Mg/Ml Vial IVPUSH 01/30/25 06:56 25 mg ONCE ONE Administration Sodium Chloride 1,000 mls @ 999 mls/hr 01/30/25 07:00 01/30/25 08:13 Ns IV 01/30/25 08:00 Infused .Q1H1M TOM Infusion Ketorolac Tromethamine 15 mg 01/30/25 06:55 01/30/25 07:04 Ketorolac Tromethamine 15 Mg/Ml Vial IVPUSH 01/30/25 06:56 15 mg ONCE ONE Administration Metoclopramide HCl 10 mg 01/30/25 06:55 01/30/25 07:04 Metoclopramide Hcl 10 Mg/2 Ml Vial IVPUSH 01/30/25 06:56 10 mg ONCE ONE Administration Medical Decision Making Medical Decision Making [facility] Narrative: 6:58 AM 01/30/2025 (Dr. Kem Tee): Patient has a history of migraines and it is reported our system and reports migraines, no indication for CT imaging no new features as described in my HPI, all overall well-appearing without neurologic deficits and no fevers to suspect infectious etiology such as encephalitis or meningitis, no evidence for acute angle closure glaucoma on exam or temporal arteritis and he with does not fit that profile, we will treat for pain with a migraine cocktail we will re-evaluate. 9:02 AM 01/30/2025 (Dr. Kem Tee): Patient continues to sleep, blood work reassuring Differential Diagnosis Differential Diagnoses: The differential diagnosis associated with the presentation includes (Subarachnoid hemorrhage, cavernous venous thrombosis, acute angle closure glaucoma, temporal arteritis, meningitis, migraine headache, tension headache) Admission/Observation Consideration of admission/observation: Escalation of care including admission/observation considered Lab Data MDM Lab Attestation statement: I reviewed the patient's lab results. 01/30/25 06:34 01/30/25 06:34 Labs: Lab Results 01/30/25 Range/Units 06:34 WBC 5.0 (4.8-10.8) X10*3/uL RBC 5.50 (4.60-5.80) X10*6/uL Hgb 14.8 (14.0-18.0) g/dl Hct 45.7 (42.0-52.0) % MCV 83.1 (80.0-98.0) fL MCH 26.9 L (27.0-33.0) pg MCHC 32.4 (31.0-36.0) g/dl RDW 13.5 (11.0-16.0) % Plt Count 250 (160-400) X10*3/uL MPV 9.4 (9.4-12.4) fL Immature Gran % (Auto) 0.2 (0.0-0.4) % Neut % (Auto) 50.7 (45-73) % Lymph % (Auto) 32.9 (20-40) % [place] % (Auto) 10.8 (2-11) % Eos % (Auto) 4.2 H (0-4) % Baso % (Auto) 1.2 (0-2) % Lymph # (Auto) 1.7 (1.2-4.9) X10*3/uL [place] # (Auto) 0.5 (0.1-1.2) X10*3/uL Eos # (Auto) 0.2 (0.0-0.4) X10*3/uL Baso # (Auto) 0.1 (0.0-0.2) X10*3/uL Abs Immat Gran (auto) 0.01 (0.00-0.03) X10*3/uL Absolute Neuts (auto) 2.5 (2.0-8.3) x10*3/uL Absolute Nucleated RBC 0.000 (0.0-0.012) X10*3/uL Nucleated RBC % (auto) 0.0 (0.0-0.2) /100WBC Sodium 140 (135-145) mmol/L Potassium 4.1 (3.3-5.1) mmol/L Chloride 106 (96-108) mmol/L Carbon Dioxide 25 (22-29) mmol/L Anion Gap 13 (12-20) BUN 19 H (9-16) mg/dL Creatinine 0.86 (0.5-1.4) mg/dL Estim Creat Clear Calc 153.4 Estimated GFR > 60 Random Glucose 95 (60-115) mg/dL Calcium 9.2 (8.4-10.2) mg/dL Total Bilirubin 0.8 (0.0-1.0) mg/dL AST 30 (5-37) U/L ALT 37 (0-40) U/L Alkaline Phosphatase 47 (39-117) U/L Total Protein 7.3 (6.5-8.0) g/dL Albumin 4.5 (3.5-5.0) g/dL Lipase 19 (8-78) U/L Tests considered The following testing was considered but not selected: CT brain Prescription Management I considered prescription management with: Pain Medication Critical Care Time Critical Care Time Critical Care Time: Yes Total Critical Care Time: 35 Attestation: Time is exclusive of separately billable procedures. Time includes: direct patient care, patient reassessment, coordination of patient care, interpretation of data (laboratory data, pulse oximetry, arterial blood gases and chest xrays), review of patient's medical records, medical consultation and documentation of patient care. Procedures excluded from critical care time: central intravenous line placement and electrocardiography. Discharge Plan Discharge Clinical Impression: Recurrent headache, Cervico-occipital neuralgia of left side Patient Disposition: Home, Self-Care Additional Instructions: I recommend capsaicin ointment to be rubbed into the base of the neck as well as upper shoulders be mindful getting in the face and eyes, continue with Flexeril, Tylenol but also continue with ibuprofen 400 mg every 6 hours, gentle stretching exercises, you may need physical therapy to help with this Follow up with the PCP any other issues concerns come back to the ER, your blood work and physical examination has been reassuring Prescriptions: No Action omeprazole 40 mg capsule,delayed release(DR/EC) 40 mg PO DAILY Qty: 30 0RF sucralfate 1 gram tablet 1 g PO TID Qty: 90 0RF prednisone 20 mg tablet 40 mg PO DAILY 5 Days Qty: 10 0RF amoxicillin-pot clavulanate 875-125 mg tablet 1 tab PO BID Qty: 14 0RF cyclobenzaprine 10 mg tablet 10 mg PO Q8H PRN (Reason: Muscle spasm) Qty: 14 0RF azithromycin 250 mg tablet See Rx Instructions .ROUTE .COMPLEX Qty: 6 0RF Rx Instructions: take 500 mg today (day 1), then 250 mg for 4 days (days 2-5) codeine-guaifenesin [Guaifenesin AC] 10-100 mg/5 mL liquid 5 ml PO Q6H PRN (Reason: cold symptoms) Qty: 120 0RF albuterol sulfate 90 mcg/actuation HFA aerosol inhaler 1 inh inhalation QID PRN (Reason: shortness of breath or wheezing) Qty: 8.5 0RF sumatriptan succinate 50 mg tablet 50 mg PO Q2-4H PRN (Reason: migraine headache) Qty: 10 0RF Rx Instructions: do not exceed 4 doses per 24 hrs cyclobenzaprine 10 mg tablet 10 mg PO TID PRN (Reason: muscle spasm) Qty: 14 0RF ondansetron 4 mg tablet,disintegrating 4 mg PO Q8H PRN (Reason: nausea and vomiting) Qty: 20 0RF metoclopramide HCl [Reglan] 10 mg tablet 10 mg PO Q6H PRN (Reason: nausea and vomiting) Qty: 14 0RF diphenhydramine HCl 25 mg capsule 50 mg PO Q6H PRN (Reason: headache, nausea, vomiting) Qty: 20 0RF Excedrin Migraine 250-250-65 mg tablet 2 tab PO Q6H PRN (Reason: headache) Qty: 30 0RF ibuprofen 600 mg tablet 600 mg PO Q6H PRN (Reason: pain) Qty: 30 0RF ondansetron 4 mg tablet,disintegrating 4 mg PO Q8H PRN (Reason: nausea and vomiting) Qty: 20 0RF Paxlovid 300 mg (150 mg x 2)-100 mg tablets,dose pack See Rx Instructions .ROUTE .COMPLEX Qty: 30 0RF Rx Instructions: take TWO 150 mg tablets of nirmatrelvir with ONE 100 mg tablet of ritonavir twice daily for 5 days sumatriptan succinate 50 mg tablet 50 mg PO Q2-4H PRN (Reason: migraine headache) Qty: 10 0RF Rx Instructions: do not exceed 4 doses per 24 hrs Stand Alone Forms: Work/School Release Print Language: Faroese
[2025-01-30] MEDS: diazePAM 10 MG/2 ML CARTRIDGE 2.5 MG IVPUSH (07:05)
[2025-01-30 08:18] VITALS: BP 125/82; PULSE 75; RESP 16; O2SAT 99
[2025-01-30 11:59] VITALS: BP 125/82; PULSE 75; RESP 16; TEMP 36.6; O2SAT 99
== END 2025-01-30 12:00 | disposition home or self-care (01) ==
PROVIDERS: Emergency Provider Emergency Medicine; PCP Internal Medicine
DX: M54.81 Occipital neuralgia (principal); R51.9 Headache, unspecified
CPT/HCPCS: 36415; 80053; 83690; 85025; 96361; 96374; 96375; 99284; J1200; J1885; J2765; J3360

== ENCOUNTER 2025-03-11 06:36 | Emergency (ER) | payer OTHER, SELFPAY ==
[2025-03-11 06:47] VITALS: BP 123/58; PULSE 70; RESP 17; TEMP 36.8; O2SAT 97; BMI 33.3
--- OUTSIDE RECORDS SUMMARY | 2025-03-11 07:31 | XMS_ITS | Encounter Summary ---
Author Organization [employer] Address [address] [place] [address] Care Team Providers Care Bender Machine Operator Name Role Phone Merissa Arias MD Primary Care Provider + Encounter Details Date Type Department Care Team ([facility] st Contact Info) Description 01/25/2025 Results Follow-Up [facility] [address] [place] [address] Merissa Arias MD [address] [place] [address] POCT Glucose, POCT Hgb A1c, CBC auto [...] Description 04/05/2025 9:00 AM EST Office Visit [facility] [address] [place] [address] Gabriela Rizo, OD [address] [place] [address] 04/12/2025 9:00 AM EST Office Visit [facility] [address] [place], [place] [phone] Merissa Arias MD [address] [place] [phone] documented as of this encounter Visit Diagnoses Not on filedocumented in this encounter Additional Health Concerns Assessment Noted Time PHQ-9 Depression Total Score: 13 025 9:29 AM EST documented as of this encounter Care Teams Bender Machine Operator Relationship Specialty Start Date End Date Merissa Arias MD [address] [place] [id number] PCP - General Family Medicine 08/31/16 documented as of this encounter
--- OUTSIDE RECORDS SUMMARY | 2025-03-11 07:31 | XMS_ITS | Clinical Summary ---
Author Organization [employer] Address [address] [facility] [address] [place] [address] Care Team Providers Care Heatset Winder Operator Name Role Phone Merissa Arias MD Primary Care Provider + Allergies No known active allergies Medications * This document contains information received from the source organization and may not represent a complete record from that organization. azelastine (Optivar) 0.05 % ophthalmic solution Administer 1 drop into affected eye(s) every 12 (twelve) hours. 1 Active betamethasone dipropionate (Diprolene) 0.05 % ointment Apply topically at bed time. 1 Active loratadine (Claritin) 10 MG tablet Take 1 tablet by mouth at bed time. 2 Active raNITIdine (Zantac) 150 MG tablet take 1 tablet by oral route 2 times every day 9 Active ibuprofen 400 MG tabletIndications :Chronic tension-type headache, not intractable 1-2 tabs po q8h prn pain/headache/ fever 90 tablet 3 Active fluticasone (Flonase) 50 MCG/ACT nasal sprayIndications: Posterior rhinorrhea INSTILL 1 SPRAY IN EACH NOSTRIL ONCE DAILY IN THE MORNING 48 g 3 Active lidocaine (Lidoderm) 5 % patch Apply 1 patch topically Once per day. Remove & discard patch within 12 hours or as directed by MD. 30 patch 2 5 07/18/19 26 Active ibuprofen 400 MG tablet Take 1 tablet (400 mg) by mouth every 6 (six) hours if needed for moderate pain or fever for up to 30 doses. 30 tablet 5 Active tiZANidine (Zanaflex) 2 MG tabletIndications :Cervical paraspinal muscle spasm Take 1 tablet (2 mg) by mouth if needed at bedtime for muscle spasms. May take 1-2 tablet by mouth at bedtime prn pain 30 tablet 5 Active cyclobenzaprine (Flexeril) 10 MG tablet Take 1 tablet (10 mg) by mouth at bedtime for 10 days. 10 tablet 5 Active amitriptyline (Elavil) 10 MG tablet Take 1 tablet (10 mg) by mouth at bedtime. 30 tablet 5 Active acetaminophen (Tylenol) 500 MG tablet Take 1 tablet (500 mg) by mouth every 8 (eight) hours if needed for moderate pain. 90 tablet 5 Active Active Problems Problem Noted Date Diagnosed Date [...] 01/25/2025 9:15 AM EST Office Visit [facility] [address] [place] [phone] Merissa Arisa MD Preventative health care (Primary Dx); Prediabetes; Cervical paraspinal muscle spasm; Cervicogenic headache; Neck pain; Encounter for immunization; Screen for STD (sexually transmitted disease) 01/25/2025 Results Follow-Up [facility] [address] [place] [address] [phone] Merissa Arias MD POCT Glucose, POCT Hgb A1c, CBC auto differential, Additional followed-up results: 8 01/25/2025 Travel 01/24/2025 Telephone [facility] [address] [place] [address] Merissa Arias MD chart prep 01/18/2025 Patient Outreach [facility] [address] [place], [place] [phone] Merissa Arias MD Pre-visit Planning (SDOH negative, Tobacco screening negative. ) from Last 3 Months Immunizations Immunization [...] 04/05/2025 9:00 AM EST Office Visit [facility] [address] [place] [address] Gabriela Rizo, OD [address] [place] [address] 04/12/2025 9:00 AM EST Office Visit [facility] [address] [place] [address] Merissa Arias MD [address] [place] [address] Health Maintenance Due Date Last Done Comments Dental Prophylaxis 1980 Disability Screening 1980 Family Planning (PISQ) 1997 HPV Vaccines (1 - Male 3-dose series) 1997 Hepatitis B Vaccines (2 of 3 - 19+ 3-dose series) 03/18/2021 03/18/2021, 06/26/2018 Dental Oral Exam 10/21/2022 04/22/2022 [...] EST Narrative 01/25/2025 10:43 AM EST [address] [address] XRay Report Signed Patient: Kayode Rodriguez MR#: [id number] : 1980 Acct:[id number] Age/Sex: 44 / M ADM Date: 01/25/25 Loc: HO.HHCX Attending Dr: Merissa Arias MD Ordering Physician: Merissa Arias MD Date of Service: 01/25/25 Procedure(s): XR cervical spine 3V Accession Number(s): [id number] cc: Merissa Arias MD Reason for Exam: [...] 01/25/25 1040 DD/ 1035 TD/TT: 01/25/25 1037 Teacher Lip Reading: Procedure Note Donotuseinterpreter, Image - 01/25/[address] [address] XRay Report Signed Patient: Argelia Rodriguez#: M [id number] : 1980Acct:[id number] Age/Sex: 44 / MADM Date: 01/25/25 Loc: HO.HHCX Attending Dr: Merissa Arias MD Ordering Physician: Merissa Arias MD Date of Service: 01/25/25 Procedure(s): XR cervical spine 3V Accession Number(s): [id number] cc: Merissa Arias MD Reason for Exam: [...] 01/25/25 1040 DD/ 1035 TD/TT: 01/25/25 1037 Teacher Lip Reading: us Merissa Arias MD IMG XR PROCEDURES Final Result * Syphilis Screen (01/25/2025 10:15 AM EST) Syphilis Screen Nonreactive Nonreactive [facility] Blood 01/25/2025 10:1 5 AM EST 01/25/2025 11:17 AM EST us Merissa Arias MD LAB BLOOD ORDERABLES Fin al Result [facility] [address] [place] [phone] * (ABNORMAL) Vitamin D, 25-Hydroxy, Total, Immunoassay (01/25/2025 10:15 AM EST) Vitamin D 25-OH Total 23.2(L) >30 ng/mL [facility] Comment: Health Based Reference Values*< 20 ng/mL [id number] ng/mL Insufficient> 30 ng/mL Sufficient*Ramos TURK. N [...] ORDERABLES Fin al Result Performing Organization Address City/[facility]/ZIP Co de Phone Number [facility] [address] [place] [phone] * TSH with Reflex to Free T4 (01/25/2025 10:15 AM EST) TSH reflex Free T4 0.66 0.32 - 4.0 uIU/mL [facility] Blood 01/25/2025 10:1 5 AM EST 01/25/2025 11:17 AM EST Merissa Arias MD LAB BLOOD ORDERABLES Fin al Result Performing Organization Address City/[facility]/ZIP Co de Phone Number [facility] [address] [place] [phone] * Lyme Disease Ab with Reflex to Blot (IgG, IgM) (01/25/2025 10:15 AM EST) Pathologist [facility] Lyme Antibody Screen <0.90 index [facility] Comment:Index Interpretation ----- < 0.90 [...] when erythemamigrans is apparent.THIS TEST WAS PERFORMED AT:Q.[address] [place] [id number] LOVETT MD Lyme Blot [facility] 01/25/2025 10:1 5 AM EST 01/25/2025 11:17 AM EST us Merissa Arias MD LAB BLOOD ORDERABLES Fin al Result [facility] [address] [place] [phone] * (ABNORMAL) Lipid Panel with Reflex to Direct LDL (01/25/2025 10:15 AM EST) Pathologist [facility] Triglycerides 128 <150 mg/dL [facility] Comment:Desirable Triglyceri de: less than 150 mg/dLBorderline High Triglyceride 150-199 mg/dLHigh Triglyceride: 200-499 mg/dLVery High Triglyceride: greater than or equal to 5OO mg/dL Cholesterol 196 <200 mg/dL [facility] Comment:Desirable Cholestero l: less than 200 mg/dLBorderline High Cholesterol: 200-239 mg/dLHigh Cholesterol: greater than 239 mg/dL LDL Cholesterol Calculated 117(H) <100 mg/dL [facility] Comment:Desirable LDL: less than 100 mg/dLNear Optimal/Above Optimal LDL: 110- 129 mg/dLBorderline High LDL: 130-159 mg/dLHigh LDL: 160-189 mg/dLVery High LDL: greater than or equal to 190 mg/dL HDL Cholesterol 54 >40 mg/dL [facility] Comment:Desirable HDL: great er than 40 mg/dL Note: This HDL assay may give artificially low results in patients with liver disease. Blood 01/25/2025 10:1 5 AM EST 01/25/2025 11:17 AM EST us Merissa Arias MD LAB BLOOD ORDERABLES Fin al Result Performing Organization Address City/[facility]/ZIP Co de Phone Number [facility] [address] [place] [address] [phone] * Hepatitis Panel, General (01/25/2025 10:15 AM EST) Hepatitis A IgM Nonreactive Nonreactive [facility] Comment:IgM antibodies to MACK V not detected; does not exclude earlyacute or recovered HAV infection. ~Hepatitis B Surface Antibody NONREACTIVE Nonreactive [facility] Comment:Nonreactive: < 8.00 mIU/mL Hepatitis B Core Antibody Nonreactive Nonreactive [facility] Hepatitis C Antibody Nonreactive Nonreactive [facility] Comment:Antibodies to HCV no t detected; does not exclude early acuteHCV infection. Hepatitis B Surface Ag Negative Negative [facility] Blood 01/25/2025 10:1 5 AM EST 01/25/2025 11:17 AM EST us Merissa Arias MD LAB BLOOD ORDERABLES Fin al Result Performing Organization Address City/[facility]/ZIP Co de Phone Number [facility] [address] [place] [phone] * (ABNORMAL) CBC auto differential (01/25/2025 10:15 AM EST) White Blood Count 5.2 4.8 - 10.8 X10*3/uL [facility] Red Blood Count 5.43 4.60 - 5.80 X10*6/uL [facility] Hemoglobin 14.6 14.0 - 18.0 g/dl [facility] Hematocrit 45.4 42.0 - 52.0 % [facility] Mean Corpuscular Volume 83.6 80.0 - 98.0 fL [facility] Mean Corpuscular Hemoglobin 26.9(L) 27.0 - 33.0 pg [facility] Mean Corpuscular HGB Conc 32.2 31.0 - 36.0 g/dl [facility] Red Cell Distribution Width 13.5 11.0 - 16.0 % [facility] Platelet Count 260 160 - 400 X10*3/uL [facility] Mean Platelet Volume 9.9 9.4 - 12.4 fL [facility] Neutrophils Percent Auto 55.0 45 - 73 % [facility] Imm Gran Pct Auto 0.2 0.0 - 0.4 % [facility] Lymphocytes Percent Auto 32.6 20 - 40 % [facility] Monocytes Percent Auto 8.9 2 - 11 % [facility] Eosinophils Percent Auto 2.5 0 - 4 % [facility] Basophils Percent Auto 0.8 0 - 2 % [facility] NRBC Pct Auto 0.0 0.0 - 0.2 /100WBC [facility] Neutrophils Absolute Auto 2.8 2.0 - 8.3 x10*3/uL [facility] Imm Gran Abs Auto 0.01 0.00 - 0.03 X10*3/uL [facility] Lymphocytes Absolute Auto 1.7 1.2 - 4.9 X10*3/uL [facility] Monocytes Absolute Auto 0.5 0.1 - 1.2 X10*3/uL [facility] Eosinophils Absolute Auto 0.1 0.0 - 0.4 X10*3/uL [facility] Basophils Absolute Auto 0.0 0.0 - 0.2 X10*3/uL [facility] NRBC Abs Auto 0.000 0.0 - 0.012 X10*3/uL [facility] Blood Venous blood specimen / Unknown 01/25/2025 10:15 AM EST 01/25/2025 11:17 AM EST Merissa Arias MD LAB BLOOD ORDERABLES Fin al Result Performing Organization Address [facility]/ZIP Co de Phone Number [facility] [address] [place] [phone] * HIV-1/2 Antigen and Antibodies, Fourth Generation, with Reflexes (01/25/2025 10:15 AM EST) HIV AB/AG Nonreactive Nonreactive [facility] Comment:HIV-1 p24 Ag and/or HIV-1/HIV-2 Ab not detected.A test result that is nonreactive does not exclude thepossibility of exposure to or infection with HIV-1 and/orHIV-2. Nonreactive results in this assay for individualswith prior exposure to HIV-1 and/or HIV-2 may be due toantigen and antibody levels that are below the limit ofdetection of this assay.The [employer] HIV Ag/Ab Combo assay result andsupplemental assay results should be interpreted inconjunction with the patient's clinical presentation,history and other laboratory results. If the results areinconsistent with clinical evidence, additional testing issuggested to confirm the result. Blood Venous blood specimen / Unknown 01/25/2025 10:15 AM EST 01/25/2025 11:17 AM EST Merissa Arias MD LAB BLOOD ORDERABLES Fin al Result Performing Organization Address [facility]/ZIP Co de Phone Number [facility] [address] [place] [phone] * (ABNORMAL) Comprehensive Metabolic Panel (01/25/2025 10:15 AM EST) Sodium 139 135 - 145 mmol/L [facility] Potassium 4.5 3.3 - 5.1 mmol/L [facility] Chloride 104 96 - 108 mmol/L [facility] Carbon Dioxide 29 22 - 29 mmol/L [facility] Anion Gap 11(L) 12 - 20 [facility] Urea Nitrogen (BUN) 19(H) 9 - 16 mg/dL [facility] Creatinine, Serum 1.00 0.5 - 1.4 mg/dL [facility] Estimated Glomerular Filt Rate >60 [facility] Comment:Chronic Kidney Disea se: Estimated GFR < 60 mL/min/[id number] Kidney Disease: Estimated GFR < 15 mL/min/1.73m2 Glucose 87 60 - 115 mg/dL [facility] Calcium 9.5 8.4 - 10.2 mg/dL [facility] Bilirubin, Total 1.1(H) 0.0 - 1.0 mg/dL [facility] Aspartate Amino Transferase 33 5 - 37 U/L [facility] Alanine Aminotransferase 36 0 - 40 U/L [facility] Total Protein 7.4 6.5 - 8.0 g/dL [facility] Albumin Level 4.7 3.5 - 5.0 g/dL [facility] Alkaline Phosphatase 45 39 - 117 U/L [facility] Blood Venous blood specimen / Unknown 01/25/2025 10:15 AM EST 01/25/2025 11:17 AM EST us Merissa Arias MD LAB BLOOD ORDERABLES Fin al Result [facility] [address] [place] [phone] * (ABNORMAL) POCT Hgb A1c (01/25/2025 9:34 AM EST) Hemoglobin A1C 5.9(A) 4.0 - 5.7 % QC Media Lot # [id number] Lot# Expiration Date ,[id number] Blood 01/25/2025 9:34 AM EST Merissa Arias MD POINT OF CARE TEST ENTER /EDIT ORDERABLES Final Result * POCT Glucose (01/25/2025 9:27 AM EST) Glucose Blood, POC 121 60 - 200 mg/dL [employer] Lot # [id number] Lot# Expiration Date Blood Capillary blood specimen / Unknown 01/25/2025 9:27 AM EST Merissa Arias MD POINT OF CARE TEST ENTER /EDIT ORDERABLES Final Result from Last 3 Months Insurance [employer] [facility] [phone] [place] [address] [place] [address] Care Teams Heatset Winder Operator Relationship Specialty Start Date End Date Merissa Arias MD [address] [place] [phone] PCP - General Family Medicine 08/31/16
--- OUTSIDE RECORDS SUMMARY | 2025-03-11 07:31 | XMS_ITS | Encounter Summary ---
Author Organization [employer] [facility] Address [address] [facility] [address] [place] [address] Care Team Providers Care Indoor Plant Technician Name Role Phone Merissa Arias MD Primary Care Provider + Encounter Details Date Type Department Care Team (Latest Contact Info) Description 09/13/2018 Abstract [facility] Dental, Provider, DDS Social History [...] Description 04/05/2025 9:00 AM EST Office Visit [facility] [address] [place] [address] Gabriela Rizo, OD [address] [place] [address] 04/12/2025 9:00 AM EST Office Visit [facility] [address] [place] [address] Merissa Arias MD [address] [place] [address] documented as of this encounter Visit Diagnoses Not on filedocumented in this encounter Care Teams Indoor Plant Technician Relationship Specialty Start Date End Date Merissa Arias MD [address] [place] [address] PCP - General Family Medicine 08/31/16 documented as of this encounter
[2025-03-11 07:39] LABS: Strep A Nucleic Acid Negative (Negative)
--- NOTE | 2025-03-11 07:48 | ED_ITS ---
HPI - URI/Sore Throat General Chief Complaint: Upper Respiratory Symptoms Stated Complaint: sore throat, body aches Time Seen by Provider: 03/11/25 07:13 Source: patient, RN notes reviewed and old records reviewed Mode of arrival: ambulatory History of Present Illness ED Provider: Abbey Velazquez PA-C HPI Narrative: 44-year-old male with a past medical history of migraines presenting to the ED complaining of sore throat, dry cough, chest discomfort with coughing, diffuse myalgias x4 days. Admits is sick with similar symptoms, suspected flu. denies fever, chills, difficulty or inability to swallow, SOB, travel Related Data Previous Rx's ?Medication ?Instructions ?Recorded omeprazole 40 mg capsule,delayed 40 mg PO DAILY #30 ca ps 07/17/20 release sucralfate 1 gram tablet 1 g PO TID #90 tabs 07/17/20 albuterol sulfate 90 mcg/actuation 1 inh inhalation QI D PRN shortness 03/28/21 aerosol inhaler of breath or wheezing #8.5 g ronnie azithromycin 250 mg tablet See Rx Instructions PO .COM PLEX #6 03/28/21 tabs codeine 10 mg-guaifenesin 100 mg/5 5 ml PO Q6H PRN col d symptoms #120 03/28/21 mL oral liquid (Guaifenesin AC) mL cyclobenzaprine 10 mg tablet 10 mg PO Q8H PRN Muscle s pasm #14 03/28/21 tabs amoxicillin 875 mg-potassium 1 tab PO BID #14 tabs clavulanate 125 mg tablet prednisone 20 mg tablet 40 mg (2 x 20 mg) PO DAILY 5 days 09/07/21 #10 tabs cyclobenzaprine 10 mg tablet 10 mg PO TID PRN muscle s pasm #14 10/29/21 tabs ondansetron 4 mg disintegrating 4 mg PO Q8H PRN nausea and 10/29/21 tablet vomiting #20 tabs sumatriptan succinate 50 mg tablet 50 mg PO Q2-4H PRN migraine 10/29/21 headache #10 tabs iwfgnip-hnznqnjnjfmyq-holcothz 250 2 tab PO Q6H PRN he adache #30 tabs 03/02/23 mg-250 mg-65 mg tablet (Excedrin Migraine) diphenhydramine HCl 25 mg capsule 50 mg (2 x 25 mg) PO Q6H PRN 03/02/23 headache, nausea, vomiting #20 caps metoclopramide HCl 10 mg tablet 10 mg PO Q6H PRN nause a and 03/02/23 (Reglan) vomiting #14 tabs sumatriptan succinate 50 mg tablet 50 mg PO Q2-4H PRN migraine 03/18/23 headache #10 tabs ibuprofen 600 mg tablet 600 mg PO Q6H PRN pain #30 t abs 04/06/23 nirmatrelvir 300 mg (150 mg See Rx Instructions PO .CO MPLEX 04/06/23 x2)-ritonavir 100 mg tablet,dose #30 ea pack (Paxlovid) ondansetron 4 mg disintegrating 4 mg PO Q8H PRN nausea and 04/06/23 tablet vomiting #20 tabs Allergies Allergy/AdvReac Type Severity Reaction Status Date / Time No Known Allergies Allergy Verified 03/11/25 06:48 Review of Systems Review of Systems: Yes all other systems are reviewed and are negative Constitutional: Constitutional: Reports as per [facility] Past Medical History Attestation statement: The following information was validated with the patient. Source: old records reviewed Medical History Migraine Social History Social History Alcohol intake: never Patient Tobacco Use Status: Never used Tobacco Advance Directives: No Advance Directives Information Provided: No Do you have a plan to hurt others: No Plan Physical Exam Vital Signs: Vital Signs: Last Vital Signs Temp 98.2 F 03/11/25 08:42 Pulse 70 03/11/25 08:42 Resp 17 03/11/25 08:42 BP 123/58 L 03/11/25 08:42 Pulse Ox 97 03/11/25 08:42 O2 Del Method Room Air 03/11/25 08:42 BMI result Body Mass Index 33.3 Const: General: cooperative, healthy appearing and no acute distress Orientation/consciousness: patient oriented x3 Limitations: no limitations HEENT: Head: Yes normal to inspection and Yes atraumatic Ears: hearing grossly normal bilaterally and external ears normal General nose exam: Normal external nose present Face and sinus: Yes normal facial exam Mouth: Normal oral and palatal mucosa present Throat: Yes uvula midline, Yes abnormal tonsil ( erythematous and swelling), No peritonsillar mass, No uvula laterally displaced and No uvular edema Eyes: General: appearance normal, both eyes and all related structures EOM: EOMs intact bilaterally Neck: Neck: Yes normal visual inspection and Yes no meningeal signs Resp: Effort & Inspection: normal respiratory effort, not labored, no respiratory distress and no stridor Auscultation: clear to auscultation bilaterally and no wheezes Cardio: Rate: regular rate Heart sounds: S1 normal heart sound present and S2 normal heart sound present Skin: Rashes: no rashes Wounds: no wounds Neuro: General: patient oriented x3, tone normal and no meningeal signs Cranial nerves: Yes CN's II-XII intact bilaterally Gait exam (Neuro): Normal gait present Extrem: General: Yes normal to inspection Course Course Course Narrative: 810-- COVID, flu, RSV and rapid strep negative Results discussed with patient including worrisome signs and symptoms and strict return precautions, and when to return to the emergency department. They verbalized understanding and feel safe for discharge at this time. Medications Administered Discontinued Medications Generic Name Dose Route Start Last Admin Trade Name Freq PRN Reason Stop Dose Admin Ibuprofen 600 mg 03/11/25 07:38 03/11/25 07:57 Ibuprofen 600 Mg Tablet PO 03/11/25 07:39 600 mg ONCE ONE Administration Medical Decision Making Medical Decision Making [facility] Narrative: 44-year-old male with a past medical history of migraines presenting to the ED complaining of sore throat, dry cough, chest discomfort with coughing, diffuse myalgias x4 days. on exam vital signs stable, NAD, nontoxic appearing, bilateral tonsillar swelling and erythema noted. Uvula midline. No respiratory distress. Lungs CTA. Concern for pharyngitis vs viral illness. No evidence of [employer]/retropharyngeal abscess at this time Plan: Viral testing, rapid strep, PO Motrin Please refer to course for remaining clinical decision making, interpretation of labs/imaging results, and discussions with consultants and/or family members. Differential Diagnosis Differential Diagnoses: The differential diagnosis associated with the presentation includes As above Lab Data [facility] Lab Attestation statement: I reviewed the patient's lab results. Labs: Lab Results 03/11/25 Range/Units 07:13 Influenza Type A (PCR) NEGATIVE (Negative) Influenza Type B (PCR) NEGATIVE (Negative) RSV RNA Qual (PCR) NEGATIVE (Negative) SARS-CoV-2 RNA (RT-PCR) NEGATIVE (Negative) S. pyogenes GrpA GLENDY Negative (Negative) External Record Review External record reviewed: Inpatient record, Office record, Outpatient record, P rior outpatient labs, Prior outpatient radiology, Primary care record and Outside ED record Tests considered The following testing was considered but not selected: As above Prescription Management I considered prescription management with: Pain Medication and Antibiotic Chronic Conditions Patient?s care impacted by: Other Social Determinants Patient?s care significantly limited by Social Determinants of Health including: Other Social Determinant of Health Discharge Plan Discharge Clinical Impression: Acute viral syndrome Patient Disposition: Home, Self-Care Instructions: Viral Syndrome (ED) Additional Instructions: You have a virus. You tested negative for COVID, flu, RSV as well as strep throat No antibiotics are indicated at this time Make sure you are staying hydrated. Drink plenty of fluids. Rest Alternate Tylenol and Motrin at home as needed for body aches and fever Follow-up with your doctor. If symptoms persist or worsen return to the emergency department *If you are a child & not tolerating liquid or urinating for more than 6 hours, or fevers are uncontrolled with medications at home, return to the emergency department* Prescriptions: No Action omeprazole 40 mg capsule,delayed release(DR/EC) 40 mg PO DAILY Qty: 30 0RF sucralfate 1 gram tablet 1 g PO TID Qty: 90 0RF prednisone 20 mg tablet 40 mg PO DAILY 5 Days Qty: 10 0RF amoxicillin-pot clavulanate 875-125 mg tablet 1 tab PO BID Qty: 14 0RF cyclobenzaprine 10 mg tablet 10 mg PO Q8H PRN (Reason: Muscle spasm) Qty: 14 0RF azithromycin 250 mg tablet See Rx Instructions .ROUTE .COMPLEX Qty: 6 0RF Rx Instructions: take 500 mg today (day 1), then 250 mg for 4 days (days 2-5) codeine-guaifenesin [Guaifenesin AC] 10-100 mg/5 mL liquid 5 ml PO Q6H PRN (Reason: cold symptoms) Qty: 120 0RF albuterol sulfate 90 mcg/actuation HFA aerosol inhaler 1 inh inhalation QID PRN (Reason: shortness of breath or wheezing) Qty: 8.5 0RF sumatriptan succinate 50 mg tablet 50 mg PO Q2-4H PRN (Reason: migraine headache) Qty: 10 0RF Rx Instructions: do not exceed 4 doses per 24 hrs cyclobenzaprine 10 mg tablet 10 mg PO TID PRN (Reason: muscle spasm) Qty: 14 0RF ondansetron 4 mg tablet,disintegrating 4 mg PO Q8H PRN (Reason: nausea and vomiting) Qty: 20 0RF metoclopramide HCl [Reglan] 10 mg tablet 10 mg PO Q6H PRN (Reason: nausea and vomiting) Qty: 14 0RF diphenhydramine HCl 25 mg capsule 50 mg PO Q6H PRN (Reason: headache, nausea, vomiting) Qty: 20 0RF Excedrin Migraine 250-250-65 mg tablet 2 tab PO Q6H PRN (Reason: headache) Qty: 30 0RF ibuprofen 600 mg tablet 600 mg PO Q6H PRN (Reason: pain) Qty: 30 0RF ondansetron 4 mg tablet,disintegrating 4 mg PO Q8H PRN (Reason: nausea and vomiting) Qty: 20 0RF Paxlovid 300 mg (150 mg x 2)-100 mg tablets,dose pack See Rx Instructions .ROUTE .COMPLEX Qty: 30 0RF Rx Instructions: take TWO 150 mg tablets of nirmatrelvir with ONE 100 mg tablet of ritonavir twice daily for 5 days sumatriptan succinate 50 mg tablet 50 mg PO Q2-4H PRN (Reason: migraine headache) Qty: 10 0RF Rx Instructions: do not exceed 4 doses per 24 hrs Referrals: Merissa Arias MD [Primary Care Provider, Internal Medicine] - 1 week Stand Alone Forms: Work/School Release Interventions: ED Discharge Assessment Last Done: 03/11/25 08:42 Discharge Date/Time: 03/11/25 08:47 Print Language: Yoruba
[2025-03-11 08:07] LABS: Resp Syncy Virus RNA Qual PCR NEGATIVE (Negative); SARS COV2 PCR INHOUSE NEGATIVE (Negative)
[2025-03-11 08:42] VITALS: BP 123/58; PULSE 70; RESP 17; TEMP 36.8; O2SAT 97
== END 2025-03-11 08:47 | disposition home or self-care (01) ==
PROVIDERS: Emergency Provider Emergency Medicine; PCP Internal Medicine
DX: J02.9 Acute pharyngitis, unspecified (principal); B34.9 Viral infection, unspecified; M79.10 Myalgia, unspecified site; R07.89 Other chest pain; R05.9 Cough, unspecified; Z03.818 Encounter for observation for suspected exposure to other biological agents ruled out
CPT/HCPCS: 87637; 87651; 99283